=== PATIENT | male | born 1950 | race Caucasian/White ===

== ENCOUNTER 2017-02-12 15:20 | Inpatient (IN) | payer OTHER, MEDICARE ==
[2017-02-12] MEDS ORDERED: Sodium Chloride 0.9% 10 ML Syringe FLUSH PRN (15:38)
[2017-02-12] MEDS ORDERED: cefTRIAXone 2 GM in Sodium Chloride 0.9% 100 ML IV ONE (16:01)
[2017-02-12] MEDS: Lidocaine 1% 10 ML MDV INJECT ONE ×2 (16:18→18:12)
--- NOTE | 2017-02-12 17:01 | EDM.PDOC ---
ED HPI GENERAL MEDICAL PROBLEM - General Chief Complaint: Lower Extremity Injury/Pain Stated Complaint: R KNEEE PAIN POST FALL Time Seen by Provider: 02/12/17 15:20 Source of Information: Reports: Patient History Limitations: Reports: No Limitations - History of Present Illness INITIAL COMMENTS - FREE TEXT/NARRATIVE: 66-year-old male presents from the [facility] for evaluation treatment for a right knee infection. Patient reports that he fell on Thanksgiving. He struck his right knee on some linoleum that was overlying concrete. Patient reports over the last 2 days he is now appreciated significant swelling, redness and increased warmth to the knee. He presented to the [facility] today where he is sent over to us for further management care, concern for a septic joint. Reports on Saturday he did experience some fevers and chills. He denies any nausea or vomiting. He has been walking on the leg. He reports tightness to the knee. 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 Right Knee Pain Score (Numeric/FACES): 2 - Related Data Allergies Allergy/AdvReac Type Severity Reaction Status Date / Time No Known Allergies Allergy Verified 02/12/17 15:33 Home Meds: Home Meds Ascorbic Acid 500 mg PO DAILY 02/12/17 [History] Multivitamin with Minerals [One Daily Plus Minerals] 1 tab PO DAILY 02/12/17 [ History] Phenytoin Sodium Extended [Dilantin] 200 mg PO BID 02/12/17 [History] atorvaSTATin [Lipitor] 10 mg PO BEDTIME 02/12/17 [History] Past Medical History Cardiovascular History: Reports: High Cholesterol Neurological History: Reports: Seizure Psychiatric History: Reports: Depression - Past Surgical History GI Surgical History: Reports: Colonoscopy Social & Family History - Tobacco Use Smoking Status *Q: Former Smoker Used Tobacco, but Quit: Yes Month Tobacco Last Used: 2011 - Caffeine Use Caffeine Use: Reports: Energy Drinks - Recreational Drug Use Recreational Drug Use: No Review of Systems - Review of Systems Review Of Systems: See Below Constitutional: Reports: Chills (saturday), Fever (saturday), Other (rigors- saturday) GI/Abdominal: Denies: Nausea, Vomiting Musculoskeletal: Reports: Joint Pain (right knee), Joint Swelling (right knee) Skin: Reports: Erythema (right knee). Denies: Wound Neurological: Denies: Numbness, Tingling ED EXAM, GENERAL - Physical Exam Exam: See Below Exam Limited By: No Limitations General Appearance: Alert, WD/WN, No Apparent Distress Ears: Normal External Exam Respiratory/Chest: No Respiratory Distress, Lungs Clear, Normal Breath Sounds Cardiovascular: Normal Peripheral Pulses, No Murmur, Other (irregular regular; frequent PVCs appreciated) Peripheral Pulses: 3+: Posterior Tibial (L), Posterior Tibial (R), Dorsalis Pedis (L), Dorsalis Pedis (R) Extremities: Joint Swelling, Limited Range of Motion (able to flex to 90 degrees then reports tightness), Other (Erythema and increased warmth from the mid lower leg up to the distal femur. Swelling over the right knee. Quarter- sized hematoma over the patella. Patient reports that the hematoma is chronic. States since the fall has been more tender than normal.) Neurological: Alert, Oriented, Normal Cognition Psychiatric: Normal Affect, Normal Mood Skin Exam: Warm, Dry, Normal Color, Erythema, Increased Warmth Course - Vital Signs Last Recorded V/S: Last Vital Signs Temp 36.5 C 02/12/17 15:28 Pulse 91 02/12/17 15:28 Resp 16 02/12/17 15:28 BP 131/62 02/12/17 15:28 Pulse Ox 98 02/12/17 15:28 - Orders/Labs/Meds Orders: Active Orders 24 hr Category Date Time Status EKG 12 Lead [EKG Documentation Completion] [RC] STAT Care 02/12/17 15:38 Active Peripheral IV Care [RC] . DIRECTED Care 02/12/17 15:38 Active Knee Min 4V Rt [CR] Stat Exams 02/12/17 15:39 Taken CULTURE BLOOD [BC] Stat Lab 02/12/17 15:55 Received CULTURE BLOOD [BC] Stat Lab 02/12/17 16:00 Received NS + KCl 20mEq/L [Normal Saline with 20 mEq KCl] 1,000 Med 02/12/17 18:45 Active ml IV ASDIRECTED Sodium Chloride 0.9% [Saline Flush] Med 02/12/17 15:38 Active 10 ml FLUSH ASDIRECTED PRN Blood Culture x2 Reflex Set [OM.PC] Stat Oth 02/12/17 15:40 Ordered Peripheral IV Insertion Adult [OM.PC] Routine Oth 02/12/17 15:38 Ordered Medication Orders Potassium Chloride/Sodium Chloride (Normal Saline With 20 Meq Kcl) 1,000 mls @ 125 mls/hr IV ASDIRECTED KEV Last Admin: 02/12/17 19:22 Dose: 125 mls/hr Sodium Chloride (Saline Flush) 10 ml FLUSH ASDIRECTED PRN PRN Reason: Keep Vein Open Last Admin: 02/12/17 15:43 Dose: 10 ml Labs: Laboratory Tests 02/12/17 02/12/17 02/12/17 Range/Units 15:32 15:32 15:55 WBC 16.83 H (4.23-9.07) K/mm3 RBC 4.11 L (4.63-6.08) M/mm3 Hgb 13.2 L (13.7-17.5) gm/L Hct 39.0 L (40.1-51.0) % MCV 94.9 H (79.0-92.2) fl MCH 32.1 (25.7-32.2) pg MCHC 33.8 (32.2-35.5) g/dl RDW Std Deviation 46.8 H (35.1-43.9) fL Plt Count 214 (163-337) K/mm3 MPV 10.7 (9.4-12.3) fl Neutrophils % (Manual) 88 H (40-60) % Band Neutrophils % 0 (0-10) % Lymphocytes % (Manual) 4 L (20-40) % Atypical Lymphs % 0 % Monocytes % (Manual) 7 (2-10) % Eosinophils % (Manual) 1 (0.8-7.0) % Basophils % (Manual) 0 L (0.2-1.2) Platelet Estimate Adequate Plt Morphology Comment Normal RBC Morph Comment Normal Sodium 141 (136-145) mEq/L Potassium 3.0 L (3.5-5.1) mEq/L Chloride 103 (98-107) mEq/L Carbon Dioxide 28 (21-32) mEq/L Anion Gap 13.0 (5-15) BUN 23 H (7-18) mg/dL Creatinine 1.5 H (0.7-1.3) mg/dL Est Cr Clr Drug Dosing 49.34 mL/min Estimated GFR (MDRD) 47 (>60) mL/min BUN/Creatinine Ratio 15.3 (14-18) Glucose 165 H (80-115) mg/dL Lactic Acid 1.5 (0.4-2.0) mmol/L Calcium 8.7 (8.5-10.1) mg/dL Total Bilirubin 0.6 (0.2-1.0) mg/dL AST 23 (15-37) U/L ALT 27 (16-63) U/L Alkaline Phosphatase 99 (46-116) U/L C-Reactive Protein 41.7 H* (<1.0) mg/dL Total Protein 7.6 (6.4-8.2) g/dl Albumin 3.0 L (3.4-5.0) g/dl Globulin 4.6 gm/dL Albumin/Globulin Ratio 0.7 L (1-2) Meds: Medications Generic Name Dose Route Start Last Admin Trade Name Freq PRN Reason Stop Dose Admin Potassium Chloride/Sodium Chloride 1,000 mls @ 125 mls/hr 02/12/17 18:45 19:22 Normal Saline With 20 Meq Kcl IV 125 mls/hr ASDIRECTED KEV Administration Sodium Chloride 10 ml 02/12/17 15:38 02/12/17 15:43 Saline Flush FLUSH 10 ml ASDIRECTED PRN Administration Keep Vein Open Discontinued Medications Generic Name Dose Route Start Last Admin Trade Name Freq PRN Reason Stop Dose Admin Doxycycline Hyclate Confirm 02/12/17 17:54 02/12/17 18:12 Vibramycin Administered 02/12/17 17:55 Not Given Dose 100 mg .ROUTE .STK-MED ONE Hydromorphone HCl 0.5 mg 02/12/17 17:29 02/12/17 17:40 Dilaudid IVPUSH 02/12/17 17:30 0.5 mg ONETIME ONE Administration Ceftriaxone Sodium 2 gm/ 100 mls @ 200 mls/hr 02/12/17 16:01 02/12/17 16:20 Sodium Chloride IV 02/12/17 16:30 200 mls/hr ONETIME ONE Administration Vancomycin HCl 1.5 gm/ Sodium 250 mls @ 250 mls/hr 02/12/17 16:04 02/12/17 18 :09 Chloride IV 02/12/17 17:03 Not Given ONETIME ONE Doxycycline Hyclate 100 mg/ 100 mls @ 100 mls/hr 02/12/17 17:23 02/12/17 18: 12 Sodium Chloride IV 02/12/17 18:22 Not Given ONETIME ONE Doxycycline Hyclate 100 mg/ 100 mls @ 100 mls/hr 02/12/17 17:56 02/12/17 18: 10 Sodium Chloride IV 02/12/17 18:55 100 mls/hr ONETIME ONE Administration Lidocaine HCl 10 ml 02/12/17 16:11 02/12/17 18:12 Xylocaine 1% INJECT 02/12/17 16:12 Not Given ONETIME ONE - Radiology Interpretation Free Text/Narrative:: 4 view of the right knee shows no acute fracture or dislocations. Reviewed by myself and Dr. Cortes - Re-Assessments/Exams Free Text/Narrative Re-Assessment/Exam: 02/12/17 19:58 Initially, I ordered Rocephin and vancomycin for antibiotic coverage. I had Dr. Cortes come and see the patient as we were planning on tapping the infected joint. Patient then began moving the leg more freely and he reported that he has been walking on this leg. Suspected diagnosis of cellulitis overlying the knee and not a septic joint. Spoke with Dr. Farias, regarding this patient. He also felt that the patient is bearing weight and we can passively put this patient to range of motion, a septic joint is very unlikely. I was able to flex the knee to about 90 before the patient reported tightness in the knee. I Do feel that patient would benefit from inpatient stay. He agrees to this. plan to be to admit to MedSurg. I discussed the case with Dr. Galvez, hospice on- call. She agrees to the admission. Will send to med surg, observation, for cellulitis and hypokalemia. Departure - Departure Time of Disposition: 19:31 Disposition: Refer to Observation Condition: Fair Clinical Impression: Cellulitis of knee, right, Hypokalemia - Discharge Information - My Orders Last 24 Hours: My Active Orders 02/12/17 15:38 EKG 12 Lead [EKG Documentation Completion] [RC] STAT Peripheral IV Care [RC] . DIRECTED Sodium Chloride 0.9% [Saline Flush] 10 ml FLUSH ASDIRECTED PRN Peripheral IV Insertion Adult [OM.PC] Routine 02/12/17 15:39 Knee Min 4V Rt [CR] Stat 02/12/17 15:40 Blood Culture x2 Reflex Set [OM.PC] Stat 02/12/17 15:55 CULTURE BLOOD [BC] Stat 02/12/17 16:00 CULTURE BLOOD [BC] Stat 02/12/17 18:45 NS + KCl 20mEq/L [Normal Saline with 20 mEq KCl] 1,000 ml IV ASDIRECTED - Assessment/Plan Last 24 Hours: My Active Orders 02/12/17 15:38 EKG 12 Lead [EKG Documentation Completion] [RC] STAT Peripheral IV Care [RC] . DIRECTED Sodium Chloride 0.9% [Saline Flush] 10 ml FLUSH ASDIRECTED PRN Peripheral IV Insertion Adult [OM.PC] Routine 02/12/17 15:39 Knee Min 4V Rt [CR] Stat 02/12/17 15:40 Blood Culture x2 Reflex Set [OM.PC] Stat 02/12/17 15:55 CULTURE BLOOD [BC] Stat 02/12/17 16:00 CULTURE BLOOD [BC] Stat 02/12/17 18:45 NS + KCl 20mEq/L [Normal Saline with 20 mEq KCl] 1,000 ml IV ASDIRECTED
[2017-02-12] MEDS ORDERED: Doxycycline 100 MG in Sodium Chloride 0.9% 100 ML IV ONE ×2 (17:23→17:56)
[2017-02-12] MEDS ORDERED: HYDROmorphone 0.5 MG/0.5 ML Syringe IVPUSH ONE (17:29)
[2017-02-12] MEDS ORDERED: Doxycycline 100 MG Vial ONE (17:54)
[2017-02-12] MEDS ORDERED: NS + KCl 20mEq/L 1,000 ML IV SCH (18:45)
--- NOTE | 2017-02-12 19:08 | PCM.HP ---
H&P History of Present Illness - General Date of Service: 02/12/17 Source of Information: Patient, Provider, RN, RN Notes Reviewed History Limitations: Reports: No Limitations - History of Present Illness Initial Comments - Free Text/Narative: Cortez Nolen is a 66 yo male who presented to our ED today after being seen at the [facility] for a possible right knee infection. Patient reports he fell on Thanksgiving onto linoleum was concrete underneath. Since then he has noticed increasing swelling, redness, and warmth to the knee. He reports on Saturday he did have some fever and chills, however he denies any nausea or vomiting. He is walking on the leg. He reports tightness to the knee. He has been taking NSAIDs and acetaminophen to try to manage this at home. In the ED he was afebrile with a temp of 36.5C. Pulse was 91. Respirations 16. Blood pressure 131/62. Pulse ox 90%. Labs are obtained: FVC is significantly elevated at 16.3. Hemoglobin is low at 13.2. Hematocrit low at 39.0. He is macrocytic. Platelets are normal at 214,000. Neutrophils are elevated at 88%. There is no bandemia. Sodium was good at 141. Potassium low at 3.0. This is being supplemented in the ED. Chloride is 103. Carbon dioxide 28. Anion gap 13.0. BUN is elevated at 23. Creatinine is high at 1.5. EGFR is 47. Glucose is 165. Lactic acid 1.5. Calcium 8.7. Liver enzymes looked good with AST at 23 ALT at 27 and alkaline phosphatase at 99. His CRP is very elevated at 41.7. Albumin was low at 3.0. He was given normal saline at 125 mils an hour. Doxycycline and ceftriaxone were given via IV. He is given Dilaudid 0.5 mg for pain. It is reported there were going to try to tap the knee, however patient was moving it and walking, suggesting more celulitis over septic arthritis. Dr. Farias, orthopedic surgeon, was contacted by ED provider and given current signs and symptoms he does not believe the joint has septic arthritis. Blood cultures were ordered. A 4 view x-ray of the knee was obtained and is pending formal radiologist review. Twelve-lead EKG shows sinus tachycardia with PVCs. There is borderline short MD interval and borderline left axis deviation. Borderline T-wave abnormalities are also noticed with T-wave inversion in III and aVF. T-wave flattening is noted in II , V1, V3, V4, V5, V6. He reports a history of HLD, seizure "many years ago", depression, impaired short-term memory and a brain tumor which was surgically resected. He is somewhat of a poor historian. Reports being a former smoker. He denies alcohol or drug use. He subsequently admitted to the medical floor as observation status. His CODE STATUS is full code. [facility] P[facility]. Right Knee Pain Score (Numeric/FACES): 2 - Related Data Allergies/Adverse Reactions: Allergies Allergy/AdvReac Type Severity Reaction Status Date / Time No Known Allergies Allergy Verified 02/12/17 15:33 Home Medications: Home Meds Ascorbic Acid 500 mg PO DAILY 02/12/17 [History] Multivitamin with Minerals [One Daily Plus Minerals] 1 tab PO DAILY 02/12/17 [ History] Phenytoin Sodium Extended [Dilantin] 200 mg PO BID 02/12/17 [History] atorvaSTATin [Lipitor] 10 mg PO BEDTIME 02/12/17 [History] Past Medical History Cardiovascular History: Reports: High Cholesterol Neurological History: Reports: Seizure Psychiatric History: Reports: Depression - Past Surgical History GI Surgical History: Reports: Colonoscopy Social & Family History - Tobacco Use Smoking Status *Q: Former Smoker Used Tobacco, but Quit: Yes Month Tobacco Last Used: 2011 - Caffeine Use Caffeine Use: Reports: Energy Drinks - Recreational Drug Use Recreational Drug Use: No H&P Review of Systems - Review of Systems: Review Of Systems: See Below General: Reports: No Symptoms, Fever (prior ), Chills (prior ), Night Sweats ( prior ). Denies: Malaise, Weakness, Fatigue, Decreased Appetite HEENT: Reports: Sinus Congestion. Denies: Ear Pain, Eye Pain, Headaches, Rhinitis, Post Nasal Drip, Sore Throat, Vertigo, Visual Changes Pulmonary: Reports: No Symptoms. Denies: Shortness of Breath, Wheezing, Pleuritic Chest Pain, Cough, Sputum Cardiovascular: Reports: No Symptoms. Denies: Chest Pain, Palpitations, Dyspnea on Exertion, Edema, Lightheadedness, Claudication Gastrointestinal: Reports: No Symptoms. Denies: Abdominal Pain, Anorexia, Constipation, Diarrhea, Decreased Appetite, Nausea, Vomiting Genitourinary: Reports: No Symptoms. Denies: Dysuria, Frequency, Burning, Pain Musculoskeletal: Reports: Joint Pain (right knee ), Joint Swelling (right knee ) . Denies: Neck Pain, Shoulder Pain, Arm Pain, Back Pain, Hand Pain, Leg Pain, Foot Pain, Muscle Pain, Muscle Stiffness Skin: Reports: Erythema (right knee ). Denies: Bruising, Pruritis, Wound, Urticaria Psychiatric: Reports: No Symptoms. Denies: Confusion, Depression, Mood Lability , Anxiety Neurological: Reports: Pre-Existing Deficit (Reports balance issues from prior brain tumor), Seizure (History of, although no seizures for many years), Difficulty Walking, Gait Disturbance. Denies: Confusion, Dizziness, Headache, Numbness, Tingling, Tremors, Trouble Speaking, Change in Speech Hematologic/Lymphatic: Reports: No Symptoms Immunologic: Reports: No Symptoms Exam - Exam Exam: See Below - Vital Signs Vital Signs: Last Vital Signs Temp 97.7 F 02/12/17 15:28 Pulse 91 02/12/17 15:28 Resp 16 02/12/17 15:28 BP 131/62 02/12/17 15:28 Pulse Ox 98 02/12/17 15:28 Weight: 198 lb 8 oz - Exam Quality Assessment: DVT Prophylaxis General: Alert, Oriented, Cooperative. No: Mild Distress HEENT: Conjunctiva Clear, EACs Clear, EOMI, Hearing Intact, Mucosa Moist & [place] , Nares Patent, Normal Nasal Septum, Posterior Pharynx Clear, PERRLA. No: TMs Clear Neck: Supple, Trachea Midline. No: JVD, Thyromegaly Lungs: Clear to Auscultation, Normal Respiratory Effort Cardiovascular: Regular Rate, Irregular Rhythm (PVC's noted ) GI/Abdominal Exam: Normal Bowel Sounds, Soft, Non-Tender, No Organomegaly, No Distention, No Abnormal Bruit, No Mass, Pelvis Stable (Male) Exam: Deferred Rectal (Males) Exam: Deferred Back Exam: Normal Inspection, Full Range of Motion Extremities: No Pedal Edema, Normal Capillary Refill, Joint Swelling (right knee ), Leg Pain (right knee ), Limited Range of Motion (Able to flex to 90 degrees and then reports tighness ), Increased Warmth (right knee ), Redness ( right knee ), Other (Quarter size hematoma over right patella - pt. reports this is chronic ) Peripheral Pulses: 3+: Radial (L), Radial (R), Posterior Tibial (L), Posterior Tibial (R), Dorsalis Pedis (L), Dorsalis Pedis (R) Skin: Warm, Dry, Intact Neurological: Cranial Nerves Intact (Grossly) Neuro Extensive - Mental Status: Alert, Oriented x3, Normal Mood/Affect, Normal Cognition Neuro Extensive - Motor, Sensory, Reflexes: CN II-XII Intact (Grossly) Psychiatric: Alert, Normal Affect, Normal Mood - Patient Data Lab Results Last 24 hrs: Laboratory Results - last 24 hr 02/12/17 02/12/17 02/12/17 Range/Units 15:32 15:32 15:55 WBC 16.83 H (4.23-9.07) K/mm3 RBC 4.11 L (4.63-6.08) M/mm3 Hgb 13.2 L (13.7-17.5) gm/L Hct 39.0 L (40.1-51.0) % MCV 94.9 H (79.0-92.2) fl MCH 32.1 (25.7-32.2) pg MCHC 33.8 (32.2-35.5) g/dl RDW Std Deviation 46.8 H (35.1-43.9) fL Plt Count 214 (163-337) K/mm3 MPV 10.7 (9.4-12.3) fl Neutrophils % (Manual) 88 H (40-60) % Band Neutrophils % 0 (0-10) % Lymphocytes % (Manual) 4 L (20-40) % Atypical Lymphs % 0 % Monocytes % (Manual) 7 (2-10) % Eosinophils % (Manual) 1 (0.8-7.0) % Basophils % (Manual) 0 L (0.2-1.2) Platelet Estimate Adequate Plt Morphology Comment Normal RBC Morph Comment Normal Sodium 141 (136-145) mEq/L Potassium 3.0 L (3.5-5.1) mEq/L Chloride 103 (98-107) mEq/L Carbon Dioxide 28 (21-32) mEq/L Anion Gap 13.0 (5-15) BUN 23 H (7-18) mg/dL Creatinine 1.5 H (0.7-1.3) mg/dL Est Cr Clr Drug Dosing 49.34 mL/min Estimated GFR (MDRD) 47 (>60) mL/min BUN/Creatinine Ratio 15.3 (14-18) Glucose 165 H (80-115) mg/dL Lactic Acid 1.5 (0.4-2.0) mmol/L Calcium 8.7 (8.5-10.1) mg/dL Total Bilirubin 0.6 (0.2-1.0) mg/dL AST 23 (15-37) U/L ALT 27 (16-63) U/L Alkaline Phosphatase 99 (46-116) U/L C-Reactive Protein 41.7 H* (<1.0) mg/dL Total Protein 7.6 (6.4-8.2) g/dl Albumin 3.0 L (3.4-5.0) g/dl Globulin 4.6 gm/dL Albumin/Globulin Ratio 0.7 L (1-2) Result Diagrams: 02/12/17 15:32 02/12/17 15:32 *Q Meaningful Use (ADM) - VTE *Q VTE Criteria *Q: - Stroke *Q Stroke Criteria *Q: - AMI *Q AMI Criteria *Q: - Problem List (1) Cellulitis of knee, right SNOMED Code(s): 26966596 ICD Code: L03.115 - CELLULITIS OF RIGHT LOWER LIMB Status: Acute Priority : High Current Visit: Yes (2) Hypokalemia SNOMED Code(s): 62219307 ICD Code: E87.6 - HYPOKALEMIA Status: Acute Priority: High Current Visit: Yes (3) Anemia SNOMED Code(s): 186301038 ICD Code: D64.9 - ANEMIA, UNSPECIFIED Status: Acute Priority: Medium Current Visit: Yes Qualifiers: Anemia type: unspecified type Qualified Code(s): D64.9 - Anemia, unspecified (4) Renal insufficiency SNOMED Code(s): 073664578 ICD Code: N28.9 - DISORDER OF KIDNEY AND URETER, UNSPECIFIED Status: Acute Priority: Medium Current Visit: Yes (5) HLD (hyperlipidemia) SNOMED Code(s): 74162453 ICD Code: E78.5 - HYPERLIPIDEMIA, UNSPECIFIED Status: Chronic Priority: Low Current Visit: No Qualifiers: Hyperlipidemia type: unspecified Qualified Code(s): E78.5 - Hyperlipidemia , unspecified (6) History of seizure SNOMED Code(s): 583892249 ICD Code: Z87.898 - PERSONAL HISTORY OF OTHER SPECIFIED CONDITIONS Status: Chronic Priority: Low Current Visit: No (7) History of depression SNOMED Code(s): 644812211 ICD Code: Z86.59 - PERSONAL HISTORY OF OTHER MENTAL AND BEHAVIORAL DISORDERS Status: Chronic Priority: Low Current Visit: No Problem List Initiated/Reviewed/Updated: Yes Orders Last 24hrs: Active Orders 24 hr Category Date Time Status EKG 12 Lead [EKG Documentation Completion] [RC] STAT Care 02/12/17 15:38 Active Peripheral IV Care [RC] . DIRECTED Care 02/12/17 15:38 Active Knee Min 4V Rt [CR] Stat Exams 02/12/17 15:39 Taken CULTURE BLOOD [BC] Stat Lab 02/12/17 15:55 Received CULTURE BLOOD [BC] Stat Lab 02/12/17 16:00 Received NS + KCl 20mEq/L [Normal Saline with 20 mEq KCl] 1,000 Med 02/12/17 18:45 Active ml IV ASDIRECTED Sodium Chloride 0.9% [Saline Flush] Med 02/12/17 15:38 Active 10 ml FLUSH ASDIRECTED PRN Blood Culture x2 Reflex Set [OM.PC] Stat Oth 02/12/17 15:40 Ordered Peripheral IV Insertion Adult [OM.PC] Routine Oth 02/12/17 15:38 Ordered Medication Orders Potassium Chloride/Sodium Chloride (Normal Saline With 20 Meq Kcl) 1,000 mls @ 125 mls/hr IV ASDIRECTED KEV Sodium Chloride (Saline Flush) 10 ml FLUSH ASDIRECTED PRN PRN Reason: Keep Vein Open Last Admin: 02/12/17 15:43 Dose: 10 ml Assessment/Plan Comment:: I/P Acute: Cellulitis of right knee -Erythema, redness, and pain to right knee, although no drainage. -Reports falling on and hitting knee on linoleum with concrete underneath -Reports fever, chills, and night sweats since Saturday -Took acetaminophen and NSAIDs for treatment prior to arrival. -Was able to walk on extremity, 90 degree flexion with "tightness", full extension -Afebrile in ED with stable vital signs -WBC 16.83 -CRP 41.7 -Lactic acid 1.5 -Blood cultures obtained -Dr. Dinora, orthopedic surgeon, contacted by ED provider and doubts septic arthritis -Knee x-ray essentially unremarkable pending formal radiologist review. -Doxycycline and Rocephin given in ED -Knee was not tapped in ED -Will switch to Vancomycin and Zosyn -PRN pain control medications as ordered Hypokalemia -Potassium 3.0 in ED -Supplementation ordered by ED provider -40meq PO supplementation given on floor -Will monitor and supplement as necessary Anemia -Hgb 13.2 -Hct 39.0 -Will order iron studies, B12, and Folic acid -Follow-up with PCP Renal insufficiency -Unknown what baseline is -BUN 23 -Creatinine 1.5 -eGFR 47 -IV fluids as indicated -Monitor Chronic: Seizure disorder - Home Dilantin HLD Depression Hx/o brain neoplasm Short-term memory impairment Plan: Admit to medical floor observation status CM/SW for discharge planning PT/OT GI prophylaxis: Pepcid DVT prophylaxis: KARLI Hose and Lovenox Other orders as indicated above Routine AM labs Home medications as ordered Code status: Full code. His PCP is Dr. Ibrahim with the [facility].
[2017-02-12] MEDS ORDERED: Docusate Sodium 100 MG Cap PO PRN (20:08)
[2017-02-12] MEDS ORDERED: Polyethylene Glycol 3350 Powder 17 GM Packet PO PRN (20:08)
[2017-02-12] MEDS ORDERED: Ondansetron 4 MG/2 ML SDV IV PRN (20:08)
[2017-02-12] MEDS ORDERED: Ondansetron 4 MG Tab.DIS PO PRN (20:08)
[2017-02-12] MEDS ORDERED: Bisacodyl 5 MG Tab PO PRN (20:08)
[2017-02-12] MEDS ORDERED: Potassium Chloride 20 MEQ Tab.ER PO ONE (20:19)
[2017-02-12] MEDS ORDERED: SODIUM CHLORIDE 0.9% IV SCH ×3 (21:00)
[2017-02-12] MEDS ORDERED: VANCOMYCIN IV SCH ×3 (21:00)
[2017-02-12] MEDS: Famotidine 20 MG Tab PO SCH (22:30)
[2017-02-12] MEDS: Saccharomyces Boulardii (Probiotic) 250 MG Cap PO SCH (22:30)
[2017-02-12] MEDS: Ibuprofen 600 MG Tab PO PRN (23:03)
[2017-02-13] MEDS: Acetaminophen 325 MG Tab PO PRN ×2 (04:20→18:24)
[2017-02-13] MEDS: Sodium Chloride 0.9% 1,000 ML IV SCH ×2 (04:23→20:23)
[2017-02-13] MEDS ORDERED: Piperacillin/Tazobactam 4.5 GM in Sodium Chloride 0.9% 100 ML IV ONE (06:00)
[2017-02-13] MEDS: Saccharomyces Boulardii (Probiotic) 250 MG Cap PO SCH ×2 (08:39→21:30)
[2017-02-13] MEDS: Phenytoin 100 MG Cap.ER PO SCH ×2 (08:39→21:30)
[2017-02-13] MEDS: Enoxaparin 40 MG/0.4 ML Syringe SUBCUT SCH (08:40)
[2017-02-13] MEDS: Famotidine 20 MG Tab PO SCH ×2 (08:40→21:30)
--- NOTE | 2017-02-13 09:50 | CR ---
Right knee: Four views of the right knee were obtained. Comparison: No previous study. Soft tissue swelling seen anteriorly. Slight spurring noted off the patella at the attachment of the quadriceps and patellar tendons. Moderately severe joint space narrowing seen within the medial compartment. Lateral joint space is preserved. No acute fracture or other bony abnormality is appreciated. Impression: 1. Degenerative change. 2. Anterior soft tissue swelling. 3. No acute bony abnormality is identified. Diagnostic code #3
[2017-02-13] MEDS ORDERED: FLU Vacc TS 2017-18 (65yr UP)/PF 180 MCG/0.5 ML Syringe IM ONE (10:00)
--- NOTE | 2017-02-13 12:48 | PCM.PN ---
- General Info Date of Service: 02/13/17 Admission Dx/Problem (Free Text): Cortez is a 66yo male admitted to observation status last evening with cellulitis of rt knee. Overnight nursing reports he was tachycardic and febrile. This morning lab called with reports of 2/4 BC bottles positive for G+cocci. Patient is with low grade temps of 100-99. He reports was sweating and "soaked my bed" last night. Appetite is low. He is voiding and moved bowels one day ago. Denies n/v/d. Has a dull headache currently. His knee is with pain of "1.5 "/10 currently. It is more painful when he moves the knee, he is able to bend the knee to approximately 45 degrees and then knee feels "tight". He was up and ambulatory this morning with PT. Functional Status: Reports: Pain Controlled, Tolerating Diet, Ambulating, Urinating. Denies: New Symptoms - Review of Systems General: Reports: Fever (low grade), Fatigue HEENT: Reports: No Symptoms Pulmonary: Reports: No Symptoms Cardiovascular: Reports: No Symptoms Gastrointestinal: Reports: No Symptoms. Denies: Nausea Genitourinary: Reports: No Symptoms Musculoskeletal: Reports: Leg Pain (rt knee) Neurological: Reports: No Symptoms - Patient Data Vitals - Most Recent: Last Vital Signs Temp 98.8 F 02/13/17 07:55 Pulse 95 02/13/17 07:56 Resp 20 02/13/17 07:55 BP 107/61 02/13/17 07:55 Pulse Ox 95 02/13/17 07:56 Weight - Most Recent: 206 lb 12.8 oz Med Orders - Current: Current Medications Acetaminophen (Tylenol) 650 mg PO Q4H PRN PRN Reason: Pain/Fever Last Admin: 02/13/17 04:20 Dose: 650 mg Hydrocodone Bitart/Acetaminophen ([place] 325-5 Mg) 1 tab PO Q4H PRN PRN Reason: Pain (moderate 4-6) Bisacodyl (Dulcolax) 5 mg PO DAILY PRN PRN Reason: Constipation Docusate Sodium (Colace) 100 mg PO BID PRN PRN Reason: Constipation Enoxaparin Sodium (Lovenox) 40 mg SUBCUT DAILY [facility] Last Admin: 02/13/17 08:40 Dose: 40 mg Famotidine (Pepcid) 20 mg PO BID [facility] Last Admin: 02/13/17 08:40 Dose: 20 mg Hydromorphone HCl (Dilaudid) 0.25 mg IVPUSH Q2H PRN PRN Reason: Pain (severe 7-10) Piperacillin Sod/Tazobactam (Sod 4.5 gm/ Sodium Chloride) 100 mls @ 25 mls/hr IV Q8H [facility] Sodium Chloride (Normal Saline) 1,000 mls @ 100 mls/hr IV ASDIRECTED [facility] Stop: 02/14/17 06:59 Last Admin: 02/13/17 04:23 Dose: 100 mls/hr Vancomycin HCl 1.75 gm/ Sodium (Chloride) 500 mls @ 333.333 mls/hr IV Q24H [facility] Ibuprofen (Motrin) 600 mg PO Q6H PRN PRN Reason: Pain (moderate 4-6) Last Admin: 02/12/17 23:03 Dose: 600 mg Ondansetron HCl (Zofran Odt) 4 mg PO Q6H PRN PRN Reason: nausea, able to take PO Ondansetron HCl (Zofran) 4 mg IV Q6H PRN PRN Reason: Nausea/Vomiting Phenytoin Sodium (Phenytoin) 200 mg PO BID [facility] Last Admin: 02/13/17 08:39 Dose: 200 mg Polyethylene Glycol (Miralax) 17 gm PO DAILY PRN PRN Reason: Constipation Saccharomyces Boulardii (Florastor) 250 mg PO BID [facility] Simvastatin (Zocor) 10 mg PO BEDTIME [facility] Sodium Chloride (Saline Flush) 10 ml FLUSH ASDIRECTED PRN PRN Reason: Keep Vein Open Last Admin: 02/12/17 15:43 Dose: 10 ml Vancomycin HCl (Pharmacy To Dose - Vancomycin) 1 dose .XX ASDIRECTED [facility] Discontinued Medications Doxycycline Hyclate (Vibramycin) Confirm Administered Dose 100 mg .ROUTE .STK- MED ONE Stop: 02/12/17 17:55 Last Admin: 02/12/17 18:12 Dose: Not Given Hydromorphone HCl (Dilaudid) 0.5 mg IVPUSH ONETIME ONE Stop: 02/12/17 17:30 Last Admin: 02/12/17 17:40 Dose: 0.5 mg Ceftriaxone Sodium 2 gm/ (Sodium Chloride) 100 mls @ 200 mls/hr IV ONETIME ONE Stop: 02/12/17 16:30 Last Admin: 02/12/17 16:20 Dose: 200 mls/hr Vancomycin HCl 1.5 gm/ Sodium (Chloride) 250 mls @ 250 mls/hr IV ONETIME ONE Stop: 02/12/17 17:03 Last Admin: 02/12/17 18:09 Dose: Not Given Doxycycline Hyclate 100 mg/ (Sodium Chloride) 100 mls @ 100 mls/hr IV ONETIME ONE Stop: 02/12/17 18:22 Last Admin: 02/12/17 18:12 Dose: Not Given Doxycycline Hyclate 100 mg/ (Sodium Chloride) 100 mls @ 100 mls/hr IV ONETIME ONE Stop: 02/12/17 18:55 Last Admin: 02/12/17 18:10 Dose: 100 mls/hr Potassium Chloride/Sodium Chloride (Normal Saline With 20 Meq Kcl) 1,000 mls @ 125 mls/hr IV ASDIRECTED [facility] Last Admin: 02/12/17 19:22 Dose: 125 mls/hr Piperacillin Sod/Tazobactam (Sod 4.5 gm/ Sodium Chloride) 100 mls @ 200 mls/hr IV ONETIME ONE Stop: 02/13/17 06:29 Last Admin: 02/13/17 05:25 Dose: 200 mls/hr Vancomycin HCl 1 gm/Vancomycin HCl 250 mg/ Sodium Chloride 250 mls @ 166.667 mls/hr IV Q24H [facility] Last Admin: 02/12/17 22:33 Dose: 166.667 mls/hr Influenza Virus Vaccine (Pharmacy To Dose - Influenza Vaccine) 1 each IM ONETIME ONE Stop: 02/12/17 21:00 Influenza Virus Vaccine (Fluzone High-Dose ) 180 mcg IM .ONCE ONE Stop: 02/13/17 10:01 Lidocaine HCl (Xylocaine 1%) 10 ml INJECT ONETIME ONE Stop: 02/12/17 16:12 Last Admin: 02/12/17 18:12 Dose: Not Given Potassium Chloride (Klor-Con M20) 40 meq PO ONETIME ONE Stop: 02/12/17 20:20 Last Admin: 02/12/17 22:29 Dose: 40 meq Saccharomyces Boulardii (Florastor) 500 mg PO BID [facility] Last Admin: 02/13/17 08:39 Dose: 500 mg - Exam Quality Assessment: DVT Prophylaxis General: Alert, Oriented, Cooperative, No Acute Distress HEENT: Pupils Equal, EOMI, Mucous Membr. Moist/Crum Neck: Supple Lungs: Clear to Auscultation, Normal Respiratory Effort Cardiovascular: Regular Rate, Regular Rhythm GI/Abdominal Exam: Normal Bowel Sounds, Soft, Non-Tender (Male) Exam: Deferred Back Exam: Normal Inspection Extremities: Pedal Edema (right tibia is 1+ edema; left leg normal. CMS is intact and = bilaterally. ), Joint Swelling (right knee is with erythema and warmth/hot to touch. There is a 3cm round raised calloused area (patient and son state is chronic) but much larger than usual (usually around 1 cm) that is very tender to touch, nonfluctuant, there is a central pinpoint opening (likely site of innoculation). Surrounding tissue is erythematous and taut. There is moderate effusion present. Posterior knee is nonternder. ) Peripheral Pulses: 2+: Dorsalis Pedis (L), Dorsalis Pedis (R) Skin: Warm, Dry, Other (see above for rt knee exam/findings) Psy/Mental Status: Alert, Normal Affect, Normal Mood - Problem List & Annotations (1) Bacteremia SNOMED Code(s): 7699020 Code(s): R78.81 - BACTEREMIA Status: Acute Priority: High Current Visit : Yes (2) Cellulitis of knee, right SNOMED Code(s): 70542190 Code(s): L03.115 - CELLULITIS OF RIGHT LOWER LIMB Status: Acute Priority : High Current Visit: Yes (3) Anemia SNOMED Code(s): 621209894 Code(s): D64.9 - ANEMIA, UNSPECIFIED Status: Acute Priority: Medium Current Visit: Yes Qualifiers: Anemia type: unspecified type Qualified Code(s): D64.9 - Anemia, unspecified (4) Hypokalemia SNOMED Code(s): 34375970 Code(s): E87.6 - HYPOKALEMIA Status: Acute Priority: High Current Visit : Yes (5) Renal insufficiency SNOMED Code(s): 300846898 Code(s): N28.9 - DISORDER OF KIDNEY AND URETER, UNSPECIFIED Status: Chronic Priority: Medium Current Visit: Yes (6) HLD (hyperlipidemia) SNOMED Code(s): 32576847 Code(s): E78.5 - HYPERLIPIDEMIA, UNSPECIFIED Status: Chronic Priority: Low Current Visit: No Qualifiers: Hyperlipidemia type: unspecified Qualified Code(s): E78.5 - Hyperlipidemia , unspecified (7) History of depression SNOMED Code(s): 939968619 Code(s): Z86.59 - PERSONAL HISTORY OF OTHER MENTAL AND BEHAVIORAL DISORDERS Status: Chronic Priority: Low Current Visit: No (8) History of seizure SNOMED Code(s): 393324175 Code(s): Z87.898 - PERSONAL HISTORY OF OTHER SPECIFIED CONDITIONS Status: Chronic Priority: Low Current Visit: No - Problem List Review Problem List Initiated/Reviewed/Updated: Yes - Plan Plan:: I/P Acute: Bacteremia -2/4 blood cultures positive for gram positive cocci- called from lab this morning -Cont on Vanco and zosyn for now until confirmation of organism and sensitivity. -IVF, NS @ 100/hr -Antipyrectics PRN for fever Cellulitis of right knee -Erythema, redness, and pain to right knee, although no drainage. -Reports falling on and hitting knee on linoleum with concrete underneath -Reports fever, chills, and night sweats since Saturday -Took acetaminophen and NSAIDs for treatment prior to arrival. -Was able to walk on extremity, 90 degree flexion with "tightness", full extension -Afebrile in ED with stable vital signs -WBC 16.83 -CRP 41.7 -Lactic acid 1.5 -Blood cultures obtained -Dr. Farias, orthopedic surgeon, contacted by ED provider and doubts septic arthritis -Formal consult placed for Orthopedics this afternoon -Dr. Farias did see patient this afternoon, planning I&D at bedside later today; questioned need for CT, Dr. Farias states no need at this time. -Knee x-ray essentially unremarkable pending formal radiologist review. -Doxycycline and Rocephin given in ED -Knee was not tapped in ED -Will switch to Vancomycin and Zosyn -PRN pain control medications as ordered Hypokalemia -Potassium 3.0 in ED--3.4 today -Will monitor and supplement as necessary -Normal mag- follow mag levels also Anemia -Hgb 13.2 -Hct 39.0 -Will order iron studies, B12, and Folic acid---Iron studies with iron level low at 14 -Start ferrous sulfate -Occult stool ordered -Follow-up with PCP Renal insufficiency--stable -Unknown what baseline is -BUN 23 -Creatinine 1.5 -eGFR 47 -IV fluids as indicated -Monitor Chronic: Seizure disorder - Home Dilantin dose HLD Depression Hx/o brain neoplasm Short-term memory impairment Plan: Patient now with bacteremia; status change from Observation to Inpatient. CM/SW for discharge planning PT/OT GI prophylaxis: Pepcid DVT prophylaxis: KARLI Hose and Lovenox Other orders as indicated above Routine AM labs Home medications as ordered Code status: Full code. His P[facility] is [facility].
[2017-02-13] MEDS: Acetaminophen/HYDROcodone 325-5 MG Tab PO PRN (13:12)
[2017-02-13] MEDS ORDERED: Ketorolac 30 MG/ML SDV IVPUSH ONE (13:45)
[2017-02-13] MEDS: Piperacillin/Tazobactam 4.5 GM in Sodium Chloride 0.9% 100 ML IV SCH (14:22)
[2017-02-13] MEDS: HYDROmorphone 0.5 MG/0.5 ML Syringe IVPUSH PRN (17:24)
[2017-02-13] MEDS ORDERED: Potassium Chloride 10% 20 MEQ/15 ML Soln 30 ML UD Cup PO ONE (20:20)
[2017-02-13] MEDS ORDERED: Sodium Chloride 0.9% 1,000 ML IV SCH (20:30)
[2017-02-13] MEDS: Vancomycin 1.75 GM in Sodium Chloride 0.9% 500 ML IV SCH (21:30)
[2017-02-13] MEDS: Simvastatin 10 MG Tab PO SCH (21:30)
[2017-02-14] MEDS: Piperacillin/Tazobactam 4.5 GM in Sodium Chloride 0.9% 100 ML IV SCH ×4 (00:13→23:10)
[2017-02-14] MEDS: Acetaminophen 325 MG Tab PO PRN ×2 (03:19→16:08)
[2017-02-14] MEDS: Ferrous Sulfate 325 MG Tab PO SCH (06:23)
[2017-02-14] MEDS ORDERED: Sodium Chloride 0.9% 1,000 ML IV SCH ×3 (08:30→20:30)
[2017-02-14] MEDS: Phenytoin 100 MG Cap.ER PO SCH ×2 (09:53→20:29)
[2017-02-14] MEDS: Ascorbic Acid 500 MG Tab PO SCH (09:53)
[2017-02-14] MEDS: Famotidine 20 MG Tab PO SCH ×2 (09:53→20:29)
[2017-02-14] MEDS: Enoxaparin 40 MG/0.4 ML Syringe SUBCUT SCH (09:54)
[2017-02-14] MEDS: Saccharomyces Boulardii (Probiotic) 250 MG Cap PO SCH ×2 (10:06→20:28)
--- NOTE | 2017-02-14 12:47 | PCM.PN ---
- General Info Date of Service: 02/14/17 Admission Dx/Problem (Free Text): Cortez is a 66yo male admitted to observation status last evening with cellulitis of rt knee. Overnight nursing reports he was tachycardic and febrile. This morning lab called with reports of 2/4 BC bottles positive for G+cocci. Patient is with low grade temps of 100-99. He reports was sweating and "soaked my bed" last night. Appetite is low. He is voiding and moved bowels one day ago. Denies n/v/d. Has a dull headache currently. His knee is with pain of "1.5 "/10 currently. It is more painful when he moves the knee, he is able to bend the knee to approximately 45 degrees and then knee feels "tight". He was up and ambulatory this morning with PT. Functional Status: Reports: Pain Controlled, Tolerating Diet, Ambulating, Urinating - Patient Data Vitals - Most Recent: Last Vital Signs Temp 98.1 F 02/14/17 09:51 Pulse 99 02/14/17 08:22 Resp 22 H 02/14/17 08:22 BP 133/73 02/14/17 08:22 Pulse Ox 95 02/14/17 09:00 Weight - Most Recent: 213 lb I&O - Last 24 Hours: Intake & Output 02/13/17 02/14/17 02/14/17 22:59 06:59 14:59 Intake Total 2481 2174 Output Total 400 200 Balance 2080 1973 Lab Results Last 24 Hours: Laboratory Results - last 24 hr 02/14/17 02/14/17 Range/Units 05:40 05:40 WBC 18.37 H (4.23-9.07) K/mm3 RBC 3.24 L (4.63-6.08) M/mm3 Hgb 10.2 L (13.7-17.5) gm/L Hct 31.0 L (40.1-51.0) % MCV 95.7 H (79.0-92.2) fl MCH 31.5 (25.7-32.2) pg MCHC 32.9 (32.2-35.5) g/dl RDW Std Deviation 49.4 H (35.1-43.9) fL Plt Count 262 (163-337) K/mm3 MPV 10.6 (9.4-12.3) fl Neut % (Auto) 81.4 H (34.0-67.9) % Lymph % (Auto) 6.9 L (21.8-53.1) % Richardson % (Auto) 10.4 (5.3-12.2) % Eos % (Auto) 0.3 L (0.8-7.0) Baso % (Auto) 0.2 (0.1-1.2) % Neut # (Auto) 14.96 H (1.78-5.38) K/mm3 Lymph # (Auto) 1.27 L (1.32-3.57) K/mm3 Richardson # (Auto) 1.91 H (0.30-0.82) K/mm3 Eos # (Auto) 0.05 (0.04-0.54) K/mm3 Baso # (Auto) 0.03 (0.01-0.08) K/mm3 Manual Slide Review Abnormal smear Sodium 139 (136-145) mEq/L Potassium 3.5 (3.5-5.1) mEq/L Chloride 106 (98-107) mEq/L Carbon Dioxide 20 L (21-32) mEq/L Anion Gap 16.5 H (5-15) BUN 30 H (7-18) mg/dL Creatinine 1.9 H (0.7-1.3) mg/dL Est Cr Clr Drug Dosing 38.95 mL/min Estimated GFR (MDRD) 36 (>60) mL/min BUN/Creatinine Ratio 15.8 (14-18) Glucose 164 H (80-115) mg/dL Calcium 7.8 L (8.5-10.1) mg/dL Magnesium 1.8 (1.8-2.4) mg/dl C-Reactive Protein 42.7 H* (<1.0) mg/dL Med Orders - Current: Current Medications Acetaminophen (Tylenol) 650 mg PO Q4H PRN PRN Reason: Pain/Fever Last Admin: 02/14/17 03:19 Dose: 650 mg Hydrocodone Bitart/Acetaminophen ([place] 325-5 Mg) 1 tab PO Q4H PRN PRN Reason: Pain (moderate 4-6) Last Admin: 02/13/17 13:12 Dose: 1 tab Ascorbic Acid (Vitamin C) 500 mg PO DAILY [facility] Last Admin: 02/14/17 09:53 Dose: 500 mg Bisacodyl (Dulcolax) 5 mg PO DAILY PRN PRN Reason: Constipation Docusate Sodium (Colace) 100 mg PO BID PRN PRN Reason: Constipation Enoxaparin Sodium (Lovenox) 40 mg SUBCUT DAILY [facility] Last Admin: 02/14/17 09:54 Dose: 40 mg Famotidine (Pepcid) 20 mg PO BID [facility] Last Admin: 02/14/17 09:53 Dose: 20 mg Ferrous Sulfate (Ferrous Sulfate) 325 mg PO WITHBREAKFAST [facility] Last Admin: 02/14/17 06:23 Dose: 325 mg Hydromorphone HCl (Dilaudid) 0.25 mg IVPUSH Q2H PRN PRN Reason: Pain (severe 7-10) Last Admin: 02/13/17 17:24 Dose: 0.25 mg Piperacillin Sod/Tazobactam (Sod 4.5 gm/ Sodium Chloride) 100 mls @ 25 mls/hr IV Q8H [facility] Last Admin: 02/14/17 06:17 Dose: 25 mls/hr Vancomycin HCl 1.75 gm/ Sodium (Chloride) 500 mls @ 333.333 mls/hr IV Q24H [facility] Last Admin: 02/13/17 21:30 Dose: 333.333 mls/hr Sodium Chloride (Normal Saline) 1,000 mls @ 100 mls/hr IV ASDIRECTED [facility] Sodium Chloride (Normal Saline) 1,000 mls @ 999 mls/hr IV ASDIRECTED [facility] Last Admin: 02/14/17 10:05 Dose: 999 mls/hr Ibuprofen (Motrin) 600 mg PO Q6H PRN PRN Reason: Pain (moderate 4-6) Last Admin: 02/12/17 23:03 Dose: 600 mg Ondansetron HCl (Zofran Odt) 4 mg PO Q6H PRN PRN Reason: nausea, able to take PO Ondansetron HCl (Zofran) 4 mg IV Q6H PRN PRN Reason: Nausea/Vomiting Phenytoin Sodium (Phenytoin) 200 mg PO BID [facility] Last Admin: 02/14/17 09:53 Dose: 200 mg Polyethylene Glycol (Miralax) 17 gm PO DAILY PRN PRN Reason: Constipation Saccharomyces Boulardii (Florastor) 250 mg PO BID [facility] Last Admin: 02/14/17 10:06 Dose: 250 mg Simvastatin (Zocor) 10 mg PO BEDTIME [facility] Last Admin: 02/13/17 21:30 Dose: 10 mg Sodium Chloride (Saline Flush) 10 ml FLUSH ASDIRECTED PRN PRN Reason: Keep Vein Open Last Admin: 02/12/17 15:43 Dose: 10 ml Vancomycin HCl (Pharmacy To Dose - Vancomycin) 1 dose .XX ASDIRECTED [facility] Discontinued Medications Doxycycline Hyclate (Vibramycin) Confirm Administered Dose 100 mg .ROUTE .STK- MED ONE Stop: 02/12/17 17:55 Last Admin: 02/12/17 18:12 Dose: Not Given Hydromorphone HCl (Dilaudid) 0.5 mg IVPUSH ONETIME ONE Stop: 02/12/17 17:30 Last Admin: 02/12/17 17:40 Dose: 0.5 mg Ceftriaxone Sodium 2 gm/ (Sodium Chloride) 100 mls @ 200 mls/hr IV ONETIME ONE Stop: 02/12/17 16:30 Last Admin: 02/12/17 16:20 Dose: 200 mls/hr Vancomycin HCl 1.5 gm/ Sodium (Chloride) 250 mls @ 250 mls/hr IV ONETIME ONE Stop: 02/12/17 17:03 Last Admin: 02/12/17 18:09 Dose: Not Given Doxycycline Hyclate 100 mg/ (Sodium Chloride) 100 mls @ 100 mls/hr IV ONETIME ONE Stop: 02/12/17 18:22 Last Admin: 02/12/17 18:12 Dose: Not Given Doxycycline Hyclate 100 mg/ (Sodium Chloride) 100 mls @ 100 mls/hr IV ONETIME ONE Stop: 02/12/17 18:55 Last Admin: 02/12/17 18:10 Dose: 100 mls/hr Potassium Chloride/Sodium Chloride (Normal Saline With 20 Meq Kcl) 1,000 mls @ 125 mls/hr IV ASDIRECTED [facility] Last Admin: 02/12/17 19:22 Dose: 125 mls/hr Piperacillin Sod/Tazobactam (Sod 4.5 gm/ Sodium Chloride) 100 mls @ 200 mls/hr IV ONETIME ONE Stop: 02/13/17 06:29 Last Admin: 02/13/17 05:25 Dose: 200 mls/hr Vancomycin HCl 1 gm/Vancomycin HCl 250 mg/ Sodium Chloride 250 mls @ 166.667 mls/hr IV Q24H [facility] Last Admin: 02/12/17 22:33 Dose: 166.667 mls/hr Sodium Chloride (Normal Saline) 1,000 mls @ 100 mls/hr IV ASDIRECTED [facility] Stop: 02/14/17 06:59 Last Admin: 02/13/17 20:23 Dose: 100 mls/hr Influenza Virus Vaccine (Pharmacy To Dose - Influenza Vaccine) 1 each IM ONETIME ONE Stop: 02/12/17 21:00 Influenza Virus Vaccine (Fluzone High-Dose 2016-) 180 mcg IM .ONCE ONE Stop: 02/13/17 10:01 Ketorolac Tromethamine (Toradol) 30 mg IVPUSH ONETIME ONE Stop: 02/13/17 13:46 Last Admin: 02/13/17 14:23 Dose: 30 mg Lidocaine HCl (Xylocaine 1%) 10 ml INJECT ONETIME ONE Stop: 02/12/17 16:12 Last Admin: 02/12/17 18:12 Dose: Not Given Potassium Chloride (Klor-Con M20) 40 meq PO ONETIME ONE Stop: 02/12/17 20:20 Last Admin: 02/12/17 22:29 Dose: 40 meq Potassium Chloride (Potassium Chloride) 40 meq PO ONETIME ONE Stop: 02/13/17 20:21 Last Admin: 02/13/17 21:30 Dose: 40 meq Saccharomyces Boulardii (Florastor) 500 mg PO BID [facility] Last Admin: 02/13/17 08:39 Dose: 500 mg - Problem List & Annotations (1) Cellulitis of knee, right SNOMED Code(s): 02329328 Code(s): L03.115 - CELLULITIS OF RIGHT LOWER LIMB Status: Acute Priority : High Current Visit: Yes (2) Hypokalemia SNOMED Code(s): 50969065 Code(s): E87.6 - HYPOKALEMIA Status: Acute Priority: High Current Visit : Yes (3) Anemia SNOMED Code(s): 003426934 Code(s): D64.9 - ANEMIA, UNSPECIFIED Status: Acute Priority: Medium Current Visit: Yes Qualifiers: Anemia type: unspecified type Qualified Code(s): D64.9 - Anemia, unspecified (4) Renal insufficiency SNOMED Code(s): 939097764 Code(s): N28.9 - DISORDER OF KIDNEY AND URETER, UNSPECIFIED Status: Chronic Priority: Medium Current Visit: Yes (5) HLD (hyperlipidemia) SNOMED Code(s): 81153461 Code(s): E78.5 - HYPERLIPIDEMIA, UNSPECIFIED Status: Chronic Priority: Low Current Visit: No Qualifiers: Hyperlipidemia type: unspecified Qualified Code(s): E78.5 - Hyperlipidemia , unspecified (6) History of seizure SNOMED Code(s): 018294547 Code(s): Z87.898 - PERSONAL HISTORY OF OTHER SPECIFIED CONDITIONS Status: Chronic Priority: Low Current Visit: No (7) History of depression SNOMED Code(s): 922815899 Code(s): Z86.59 - PERSONAL HISTORY OF OTHER MENTAL AND BEHAVIORAL DISORDERS Status: Chronic Priority: Low Current Visit: No - My Orders Last 24 Hours: My Active Orders 02/13/17 17:15 CULTURE ANAEROBIC + SMEAR [RM] Routine 02/13/17 20:30 Sodium Chloride 0.9% [Normal Saline] 1,000 ml IV ASDIRECTED 02/14/17 07:00 Ferrous Sulfate 325 mg PO WITHBREAKFAST 02/14/17 08:30 Sodium Chloride 0.9% [Normal Saline] 1,000 ml IV ASDIRECTED 02/14/17 09:00 Ascorbic Acid [Vitamin C] 500 mg PO DAILY - Plan Plan:: I/P Acute: Bacteremia -2/4 blood cultures positive for gram positive cocci- called from lab this morning -Cont on Vanco and zosyn for now until confirmation of organism and sensitivity. -IVF, NS @ 100/hr -Antipyrectics PRN for fever Cellulitis of right knee -Erythema, redness, and pain to right knee, although no drainage. -Reports falling on and hitting knee on linoleum with concrete underneath -Reports fever, chills, and night sweats since Saturday -Took acetaminophen and NSAIDs for treatment prior to arrival. -Was able to walk on extremity, 90 degree flexion with "tightness", full extension -Afebrile in ED with stable vital signs -WBC 16.83 -CRP 41.7 -Lactic acid 1.5 -Blood cultures obtained -Dr. Farias, orthopedic surgeon, contacted by ED provider and doubts septic arthritis -Formal consult placed for Orthopedics this afternoon -Dr. Farias did see patient this afternoon, planning I&D at bedside later today; questioned need for CT, Dr. Farias states no need at this time. -Knee x-ray essentially unremarkable pending formal radiologist review. -Doxycycline and Rocephin given in ED -Knee was not tapped in ED -Will switch to Vancomycin and Zosyn -PRN pain control medications as ordered Hypokalemia -Potassium 3.0 in ED--3.4 today -Will monitor and supplement as necessary -Normal mag- follow mag levels also Anemia -Hgb 13.2 -Hct 39.0 -Will order iron studies, B12, and Folic acid---Iron studies with iron level low at 14 -Start ferrous sulfate -Occult stool ordered -Follow-up with PCP Renal insufficiency--stable -Unknown what baseline is -BUN 23 -Creatinine 1.5 -eGFR 47 -IV fluids as indicated -Monitor Chronic: Seizure disorder - Home Dilantin dose HLD Depression Hx/o brain neoplasm Short-term memory impairment Plan: Patient now with bacteremia; status change from Observation to Inpatient. CM/SW for discharge planning PT/OT GI prophylaxis: Pepcid DVT prophylaxis: KARLI Hose and Lovenox Other orders as indicated above Routine AM labs Home medications as ordered Code status: Full code. [facility].
[2017-02-14] MEDS ORDERED: Albuterol/Ipratropium 3.0-0.5 MG/3 ML Neb Soln NEB ONE (13:50)
[2017-02-14] MEDS ORDERED: Albuterol/Ipratropium 3.0-0.5 MG/3 ML Neb Soln ONE (13:58)
[2017-02-14] MEDS ORDERED: Sodium Chloride 0.9% 2,000 ML IV SCH (16:30)
--- NOTE | 2017-02-14 16:56 | CR ---
Chest: Two views of the chest were obtained. Comparison: No prior chest x-ray. Heart size is normal. Mild tortuosity of the thoracic aorta is seen. Lungs are clear. Mild degenerative change is noted throughout the spine. Impression: 1. Nothing acute is identified on two-view chest x-ray. Diagnostic code #2
--- NOTE | 2017-02-14 17:51 | PCM.PN ---
- General Info Date of Service: 02/14/17 Admission Dx/Problem (Free Text): Te is seen this evening. Resting in chair, slightly tachypnic but denies SOB. He has had course nonproductive cough all day by nursing reports. CXR has been ordered. He was febrile overnight with temp max of 103.0. He is weak. He is eating but has lower than normal appetite. He is voiding and did have BM today, denies nausea. Pain to right knee and leg is improved today. Functional Status: Reports: Pain Controlled, Tolerating Diet (eating fair amt at meals), Ambulating (with assist of walker and 1-2; weak and unable to bare full wt to right leg), Urinating. Denies: New Symptoms - Review of Systems General: Reports: Fever, Weakness, Fatigue, Malaise, Night Sweats HEENT: Reports: No Symptoms, Sore Throat. Denies: Headaches (denies) Pulmonary: Reports: Cough. Denies: Shortness of Breath (denies SOB ), Sputum, Wheezing Cardiovascular: Reports: No Symptoms. Denies: Chest Pain, Palpitations Gastrointestinal: Reports: No Symptoms. Denies: Abdominal Pain, Nausea Genitourinary: Reports: No Symptoms Musculoskeletal: Reports: Leg Pain (rt knee and leg) - Patient Data Vitals - Most Recent: Last Vital Signs Temp 101.1 F H 02/14/17 16:08 Pulse 102 H 02/14/17 15:57 Resp 21 H 02/14/17 15:57 BP 131/63 02/14/17 15:57 Pulse Ox 93 L 02/14/17 15:57 Weight - Most Recent: 213 lb I&O - Last 24 Hours: Intake & Output 02/14/17 02/14/17 02/14/17 06:59 14:59 22:59 Intake Total 2174 2392 Output Total 200 Balance 1974 2392 Lab Results Last 24 Hours: Laboratory Results - last 24 hr 02/14/17 02/14/17 02/14/17 Range/Units 05:40 05:40 17:03 WBC 18.37 H (4.23-9.07) K/mm3 RBC 3.24 L (4.63-6.08) M/mm3 Hgb 10.2 L (13.7-17.5) gm/L Hct 31.0 L (40.1-51.0) % MCV 95.7 H (79.0-92.2) fl MCH 31.5 (25.7-32.2) pg MCHC 32.9 (32.2-35.5) g/dl RDW Std Deviation 49.4 H (35.1-43.9) fL Plt Count 262 (163-337) K/mm3 MPV 10.6 (9.4-12.3) fl Neut % (Auto) 81.4 H (34.0-67.9) % Lymph % (Auto) 6.9 L (21.8-53.1) % Andrew % (Auto) 10.4 (5.3-12.2) % Eos % (Auto) 0.3 L (0.8-7.0) Baso % (Auto) 0.2 (0.1-1.2) % Neut # (Auto) 14.96 H (1.78-5.38) K/mm3 Lymph # (Auto) 1.27 L (1.32-3.57) K/mm3 Andrew # (Auto) 1.91 H (0.30-0.82) K/mm3 Eos # (Auto) 0.05 (0.04-0.54) K/mm3 Baso # (Auto) 0.03 (0.01-0.08) K/mm3 Manual Slide Review Abnormal smear Sodium 139 (136-145) mEq/L Potassium 3.5 (3.5-5.1) mEq/L Chloride 106 (98-107) mEq/L Carbon Dioxide 20 L (21-32) mEq/L Anion Gap 16.5 H (5-15) BUN 30 H (7-18) mg/dL Creatinine 1.9 H (0.7-1.3) mg/dL Est Cr Clr Drug Dosing 38.95 mL/min Estimated GFR (MDRD) 36 (>60) mL/min BUN/Creatinine Ratio 15.8 (14-18) Glucose 164 H (80-115) mg/dL Lactic Acid 1.1 (0.4-2.0) mmol/L Calcium 7.8 L (8.5-10.1) mg/dL Magnesium 1.8 (1.8-2.4) mg/dl C-Reactive Protein 42.7 H* (<1.0) mg/dL Joni Results Last 24 Hours: Microbiology 02/13/17 17:15 Gram Stain - Final Knee, Right Anaerobic Culture - Preliminary Gram Positive Cocci Med Orders - Current: Current Medications Acetaminophen (Tylenol) 650 mg PO Q4H PRN PRN Reason: Pain/Fever Last Admin: 02/14/17 16:08 Dose: 650 mg Acetaminophen (Tylenol) 650 mg PO TID [facility] Hydrocodone Bitart/Acetaminophen ([place] 325-5 Mg) 1 tab PO Q4H PRN PRN Reason: Pain (moderate 4-6) Last Admin: 02/13/17 13:12 Dose: 1 tab Albuterol (Proventil Neb Soln) 2.5 mg NEB QIDRT [facility] Albuterol/Ipratropium (Duoneb 3.0-0.5 Mg/3 Ml) 3 ml NEB Q4HRRT PRN PRN Reason: wheezing/SOB/cough Ascorbic Acid (Vitamin C) 500 mg PO DAILY [facility] Last Admin: 02/14/17 09:53 Dose: 500 mg Benzonatate (Tessalon Perles) 200 mg PO TID [facility] Bisacodyl (Dulcolax) 5 mg PO DAILY PRN PRN Reason: Constipation Docusate Sodium (Colace) 100 mg PO BID PRN PRN Reason: Constipation Enoxaparin Sodium (Lovenox) 40 mg SUBCUT DAILY [facility] Last Admin: 02/14/17 09:54 Dose: 40 mg Famotidine (Pepcid) 20 mg PO BID [facility] Last Admin: 02/14/17 09:53 Dose: 20 mg Ferrous Sulfate (Ferrous Sulfate) 325 mg PO WITHBREAKFAST [facility] Last Admin: 02/14/17 06:23 Dose: 325 mg Guaifenesin (Mucinex) 1,200 mg PO BID [facility] Hydromorphone HCl (Dilaudid) 0.25 mg IVPUSH Q2H PRN PRN Reason: Pain (severe 7-10) Last Admin: 02/13/17 17:24 Dose: 0.25 mg Piperacillin Sod/Tazobactam (Sod 4.5 gm/ Sodium Chloride) 100 mls @ 25 mls/hr IV Q8H [facility] Last Admin: 02/14/17 14:04 Dose: 25 mls/hr Vancomycin HCl 1.75 gm/ Sodium (Chloride) 500 mls @ 333.333 mls/hr IV Q24H [facility] Last Admin: 02/13/17 21:30 Dose: 333.333 mls/hr Sodium Chloride (Normal Saline) 1,000 mls @ 250 mls/hr IV ONETIME ONE Stop: 02/14/17 21:44 Ibuprofen (Motrin) 600 mg PO Q6H PRN PRN Reason: Pain (moderate 4-6) Last Admin: 02/12/17 23:03 Dose: 600 mg Ondansetron HCl (Zofran Odt) 4 mg PO Q6H PRN PRN Reason: nausea, able to take PO Ondansetron HCl (Zofran) 4 mg IV Q6H PRN PRN Reason: Nausea/Vomiting Phenytoin Sodium (Phenytoin) 200 mg PO BID [facility] Last Admin: 02/14/17 09:53 Dose: 200 mg Polyethylene Glycol (Miralax) 17 gm PO DAILY PRN PRN Reason: Constipation Saccharomyces Boulardii (Florastor) 250 mg PO BID [facility] Last Admin: 02/14/17 10:06 Dose: 250 mg Saccharomyces Boulardii (Florastor) 250 mg PO BID [facility] Simvastatin (Zocor) 10 mg PO BEDTIME [facility] Last Admin: 02/13/17 21:30 Dose: 10 mg Sodium Chloride (Saline Flush) 10 ml FLUSH ASDIRECTED PRN PRN Reason: Keep Vein Open Last Admin: 02/12/17 15:43 Dose: 10 ml Vancomycin HCl (Pharmacy To Dose - Vancomycin) 1 dose .XX ASDIRECTED [facility] Discontinued Medications Albuterol/Ipratropium (Duoneb 3.0-0.5 Mg/3 Ml) 3 ml NEB ONETIME ONE Stop: 02/14/17 13:51 Last Admin: 02/14/17 14:33 Dose: 3 ml Albuterol/Ipratropium (Duoneb 3.0-0.5 Mg/3 Ml) Confirm Administered Dose 3 ml .ROUTE .STK-MED ONE Stop: 02/14/17 13:59 Last Admin: 02/14/17 14:38 Dose: Not Given Doxycycline Hyclate (Vibramycin) Confirm Administered Dose 100 mg .ROUTE .STK- MED ONE Stop: 02/12/17 17:55 Last Admin: 02/12/17 18:12 Dose: Not Given Hydromorphone HCl (Dilaudid) 0.5 mg IVPUSH ONETIME ONE Stop: 02/12/17 17:30 Last Admin: 02/12/17 17:40 Dose: 0.5 mg Ceftriaxone Sodium 2 gm/ (Sodium Chloride) 100 mls @ 200 mls/hr IV ONETIME ONE Stop: 02/12/17 16:30 Last Admin: 02/12/17 16:20 Dose: 200 mls/hr Vancomycin HCl 1.5 gm/ Sodium (Chloride) 250 mls @ 250 mls/hr IV ONETIME ONE Stop: 02/12/17 17:03 Last Admin: 02/12/17 18:09 Dose: Not Given Doxycycline Hyclate 100 mg/ (Sodium Chloride) 100 mls @ 100 mls/hr IV ONETIME ONE Stop: 02/12/17 18:22 Last Admin: 02/12/17 18:12 Dose: Not Given Doxycycline Hyclate 100 mg/ (Sodium Chloride) 100 mls @ 100 mls/hr IV ONETIME ONE Stop: 02/12/17 18:55 Last Admin: 02/12/17 18:10 Dose: 100 mls/hr Potassium Chloride/Sodium Chloride (Normal Saline With 20 Meq Kcl) 1,000 mls @ 125 mls/hr IV ASDIRECTED [facility] Last Admin: 02/12/17 19:22 Dose: 125 mls/hr Piperacillin Sod/Tazobactam (Sod 4.5 gm/ Sodium Chloride) 100 mls @ 200 mls/hr IV ONETIME ONE Stop: 02/13/17 06:29 Last Admin: 02/13/17 05:25 Dose: 200 mls/hr Vancomycin HCl 1 gm/Vancomycin HCl 250 mg/ Sodium Chloride 250 mls @ 166.667 mls/hr IV Q24H [facility] Last Admin: 02/12/17 22:33 Dose: 166.667 mls/hr Sodium Chloride (Normal Saline) 1,000 mls @ 100 mls/hr IV ASDIRECTED [facility] Stop: 02/14/17 06:59 Last Admin: 02/13/17 20:23 Dose: 100 mls/hr Sodium Chloride (Normal Saline) 1,000 mls @ 100 mls/hr IV ASDIRECTED [facility] Last Admin: 02/14/17 14:06 Dose: 100 mls/hr Sodium Chloride (Normal Saline) 1,000 mls @ 999 mls/hr IV ASDIRECTED [facility] Last Admin: 02/14/17 10:05 Dose: 999 mls/hr Sodium Chloride (Normal Saline) 2,000 mls @ 500 mls/hr IV ASDIRECTED [facility] Stop: 02/14/17 20:29 Last Admin: 02/14/17 17:35 Dose: Not Given Sodium Chloride (Normal Saline) 1,000 mls @ 150 mls/hr IV ASDIRECTED [facility] Influenza Virus Vaccine (Pharmacy To Dose - Influenza Vaccine) 1 each IM ONETIME ONE Stop: 02/12/17 21:00 Influenza Virus Vaccine (Fluzone High-Dose 2016-) 180 mcg IM .ONCE ONE Stop: 02/13/17 10:01 Ketorolac Tromethamine (Toradol) 30 mg IVPUSH ONETIME ONE Stop: 02/13/17 13:46 Last Admin: 02/13/17 14:23 Dose: 30 mg Lidocaine HCl (Xylocaine 1%) 10 ml INJECT ONETIME ONE Stop: 02/12/17 16:12 Last Admin: 02/12/17 18:12 Dose: Not Given Potassium Chloride (Klor-Con M20) 40 meq PO ONETIME ONE Stop: 02/12/17 20:20 Last Admin: 02/12/17 22:29 Dose: 40 meq Potassium Chloride (Potassium Chloride) 40 meq PO ONETIME ONE Stop: 02/13/17 20:21 Last Admin: 02/13/17 21:30 Dose: 40 meq Saccharomyces Boulardii (Florastor) 500 mg PO BID [facility] Last Admin: 02/13/17 08:39 Dose: 500 mg - Exam Quality Assessment: DVT Prophylaxis General: Alert, Cooperative, No Acute Distress HEENT: Pupils Equal, EOMI, Mucous Membr. Moist/[place] Neck: Supple Lungs: Normal Respiratory Effort, Decreased Breath Sounds (bases). No: Rales, Rhonchi, Wheezing Cardiovascular: Regular Rate, Regular Rhythm GI/Abdominal Exam: Normal Bowel Sounds, Soft, Non-Tender (Male) Exam: Deferred Back Exam: Normal Inspection Extremities: Other (right leg is with sarah wrap from ankle to mid thigh. CMS to toes/feet is + and = bilat) Neurological: Normal Speech, Normal Tone. No: Strength Equal Bilateral (weak to left leg) Psy/Mental Status: Alert, Normal Mood - Problem List & Annotations (1) Bacteremia SNOMED Code(s): 0717822 Code(s): R78.81 - BACTEREMIA Status: Acute Priority: High Current Visit : Yes (2) Cellulitis of knee, right SNOMED Code(s): 94526362 Code(s): L03.115 - CELLULITIS OF RIGHT LOWER LIMB Status: Acute Priority : High Current Visit: Yes (3) Anemia SNOMED Code(s): 261247774 Code(s): D64.9 - ANEMIA, UNSPECIFIED Status: Acute Priority: Medium Current Visit: Yes Qualifiers: Anemia type: unspecified type Qualified Code(s): D64.9 - Anemia, unspecified (4) Hypokalemia SNOMED Code(s): 03362919 Code(s): E87.6 - HYPOKALEMIA Status: Resolved Priority: High Current Visit: Yes (5) Renal insufficiency SNOMED Code(s): 195092112 Code(s): N28.9 - DISORDER OF KIDNEY AND URETER, UNSPECIFIED Status: Chronic Priority: Medium Current Visit: Yes (6) HLD (hyperlipidemia) SNOMED Code(s): 39898605 Code(s): E78.5 - HYPERLIPIDEMIA, UNSPECIFIED Status: Chronic Priority: Low Current Visit: No Qualifiers: Hyperlipidemia type: unspecified Qualified Code(s): E78.5 - Hyperlipidemia , unspecified (7) History of depression SNOMED Code(s): 439431150 Code(s): Z86.59 - PERSONAL HISTORY OF OTHER MENTAL AND BEHAVIORAL DISORDERS Status: Chronic Priority: Low Current Visit: No (8) History of seizure SNOMED Code(s): 399605394 Code(s): Z87.898 - PERSONAL HISTORY OF OTHER SPECIFIED CONDITIONS Status: Chronic Priority: Low Current Visit: No (9) Iron deficiency anemia SNOMED Code(s): 19522742 Code(s): D50.9 - IRON DEFICIENCY ANEMIA, UNSPECIFIED Status: Acute Priority: Medium Current Visit: Yes Qualifiers: Iron deficiency anemia type: unspecified iron deficiency Qualified Code(s) : D50.9 - Iron deficiency anemia, unspecified - Problem List Review Problem List Initiated/Reviewed/Updated: Yes - My Orders Last 24 Hours: My Active Orders 02/14/17 16:14 RT Aerosol Therapy [RC] ASDIRECTED 02/14/17 16:16 IS (RT) [RT Incentive Spirometry] [RC] Q2HWA 02/14/17 16:17 STREP PNEUMONIAE ANTIGEN [MREF] Routine RT Acapella [RESPCARE] Routine 02/14/17 16:21 LINK ASSEMBLER Eval and Treat [LINK ASSEMBLER Evaluation and Treatment] [CONS] Routine 02/14/17 17:03 MYCOPLASMA PNEUMONIAE IGM AB [CHEM] Routine 02/14/17 17:05 RESPIRATORY PANEL BY PCR [MREF] Routine 02/14/17 17:45 Sodium Chloride 0.9% [Normal Saline] 1,000 ml IV ONETIME 02/14/17 21:00 Acetaminophen [Tylenol] 650 mg PO TID Albuterol [Proventil Neb Soln] 2.5 mg NEB QIDRT Benzonatate [Tessalon Perles] 200 mg PO TID Saccharomyces Boulardii [Florastor] 250 mg PO BID guaiFENesin [Mucinex] 1,200 mg PO BID - Plan Plan:: I/P Acute: Bacteremia with likely sepsis -2/4 blood cultures positive for gram positive cocci- now with non MRSA staph aureus, no sensitivity yet -Cont on Vanco and zosyn IV for now until confirmation of organism and sensitivity of knee aspirate culture. -IVF--will increase fluid rate -Antipyrectics PRN for fever -VSS, will recheck lactic acid this evening Cellulitis of right knee -Erythema, redness, and pain to right knee, although no drainage. -Reports falling on and hitting knee on linoleum with concrete underneath; Reports fever, chills, and night sweats since Saturday; Took acetaminophen and NSAIDs for treatment prior to arrival; Was able to walk on extremity, 90 degree flexion with "tightness", full extension -WBC 16.83--17.57-->18.37 -CRP 41.7-->41.2-->42.7 -Lactic acid 1.5 initially -Blood cultures obtained-- Bacteremia as noted above -Dr. Farias, orthopedic surgeon, Formal consult placed for Orthopedics -- I&D of knee done yesterday with Dr. Farias- cultures with gram + cocci thus far -Knee x-ray essentially unremarkable pending formal radiologist review. -Doxycycline and Rocephin given in ED; switched to Vancomycin and Zosyn inpatient -PRN pain control medications as ordered ? early evolving RML/RLL pneumonia -Coughing, dry and hacky all day, continues to be febrile; CXR obtained- awaiting report -Vanco/Zosyn as above -Repeat lactic acid this evening ordered -RT, scheduled nebs, IS/FV -Mucinex, tessalon perles and cough suppressant -Pepcid BID to cover possibility of aspiration -LINK ASSEMBLER for swallow eval as cough is with choking like sound at times; per nursing swallows pills and food without any difficulty thus far. Hypokalemia--resolved -Will monitor and supplement as necessary -Normal mag- follow mag levels also Anemia -Hgb 13.2 -Hct 39.0 -Will order iron studies, B12, and Folic acid---Iron studies with iron level low at 14 -Start ferrous sulfate -Occult stool ordered--Negative -Follow-up with PCP for repeat labs after discharge in one month Renal insufficiency--stable -Unknown what baseline is -BUN 23--22-->30 -Creatinine 1.5-->1.5-->1.9 -eGFR 47 -IV fluids --- increase rate to 250cc/hr x 2L then rate to 150cc/hr -Monitor Chronic: Seizure disorder - Home Dilantin dose HLD Depression- cont home meds Hx/o brain neoplasm Short-term memory impairment Plan: Patient appears worse today than yesterday, feel he is hovering on the border of full sepsis; repeat lactic acid and increase fluid rate and continue close monitoring. Add tx for PNA CM/SW for discharge planning--Discussions ongoing with [facility] for transfer, beds not available at this time. PT/OT LINK ASSEMBLER for swallow eval and also cog eval as patient seems to be intermittently confused--acute due to infection vs chronic?? GI prophylaxis: Pepcid DVT prophylaxis: KARLI Hose and Lovenox Routine AM labs Code status: Full code. PCP is Dr. Ibrahim with [facility] here in [place].
[2017-02-14] MEDS: Acetaminophen 325 MG Tab PO SCH (20:28)
[2017-02-14] MEDS: Simvastatin 10 MG Tab PO SCH (20:29)
[2017-02-14] MEDS: guaiFENesin 600 MG Tab.ER PO SCH (20:29)
[2017-02-14] MEDS: Benzonatate 100 MG Cap PO SCH (20:30)
[2017-02-14] MEDS: Codeine/guaiFENesin 100-10 MG/5 ML Syrup 5 ML Cup PO PRN (20:30)
[2017-02-14] MEDS: Vancomycin 1.75 GM in Sodium Chloride 0.9% 500 ML IV SCH (20:31)
[2017-02-14] MEDS: Albuterol 0.083% 2.5 MG/3 ML Neb Soln NEB SCH (20:51)
[2017-02-14] MEDS ORDERED: Saccharomyces Boulardii (Probiotic) 250 MG Cap PO SCH (21:00)
[2017-02-14] MEDS ORDERED: Ibuprofen 800 MG Tab PO ONE (22:58)
[2017-02-14] MEDS: Albuterol/Ipratropium 3.0-0.5 MG/3 ML Neb Soln NEB PRN (23:17)
[2017-02-15] MEDS: HYDROmorphone 0.5 MG/0.5 ML Syringe IVPUSH PRN (00:58)
[2017-02-15] MEDS: Sodium Chloride 0.9% 1,000 ML IV SCH ×3 (01:10→17:41)
[2017-02-15] MEDS: Albuterol 0.083% 2.5 MG/3 ML Neb Soln NEB SCH ×4 (06:27→20:20)
[2017-02-15] MEDS: Piperacillin/Tazobactam 4.5 GM in Sodium Chloride 0.9% 100 ML IV SCH ×2 (06:47→14:04)
[2017-02-15] MEDS: Ferrous Sulfate 325 MG Tab PO SCH (06:47)
[2017-02-15] MEDS: Saccharomyces Boulardii (Probiotic) 250 MG Cap PO SCH ×2 (08:55→20:49)
[2017-02-15] MEDS: Enoxaparin 40 MG/0.4 ML Syringe SUBCUT SCH (08:57)
[2017-02-15] MEDS: guaiFENesin 600 MG Tab.ER PO SCH ×2 (08:58→20:49)
[2017-02-15] MEDS: Famotidine 20 MG Tab PO SCH ×2 (08:58→20:50)
[2017-02-15] MEDS: Acetaminophen 325 MG Tab PO SCH ×3 (08:59→20:51)
[2017-02-15] MEDS: Benzonatate 100 MG Cap PO SCH ×3 (08:59→20:50)
[2017-02-15] MEDS: Phenytoin 100 MG Cap.ER PO SCH ×2 (08:59→20:50)
[2017-02-15] MEDS: Ascorbic Acid 500 MG Tab PO SCH (09:00)
--- NOTE | 2017-02-15 10:34 | PCM.PN ---
- General Info Date of Service: 02/15/17 Admission Dx/Problem (Free Text): Te is seen this morning up and ambulatory with nursing to BR. He looks significantly better; he is laughing and joking with staff, very appropriate in conversation. He continues to cough but it is less frequent. Denies SOB or CP this morning. States leg pain is improved. He has had loose stools this morning. He was febrile overnight at 103.0 at around 2300, no fevers since that time. Otherwise VSS. Functional Status: Reports: Pain Controlled, Tolerating Diet, Ambulating, Urinating, Incentive Spirometry. Denies: New Symptoms - Review of Systems General: Reports: Fever (temp max 103.0 overnight) HEENT: Reports: No Symptoms Pulmonary: Reports: Cough. Denies: Shortness of Breath, Sputum Cardiovascular: Reports: No Symptoms. Denies: Chest Pain, Palpitations Gastrointestinal: Reports: No Symptoms. Denies: Abdominal Pain, Nausea Genitourinary: Reports: No Symptoms Musculoskeletal: Reports: Leg Pain Skin: Reports: No Symptoms Neurological: Reports: No Symptoms (intermittent confusion seems to be resolved this morning; he is laughing and joking this morning which is the most interaction he has had thus far) Psychiatric: Reports: No Symptoms - Patient Data Vitals - Most Recent: Last Vital Signs Temp 97.0 F 02/15/17 08:59 Pulse 79 02/15/17 08:34 Resp 24 H 02/15/17 08:34 BP 126/74 02/15/17 08:34 Pulse Ox 97 02/15/17 08:34 Weight - Most Recent: 211 lb 2 oz I&O - Last 24 Hours: Intake & Output 02/14/17 02/15/17 02/15/17 22:59 06:59 14:59 Intake Total 2752 2446 Output Total 350 Balance 2752 2096 Lab Results Last 24 Hours: Laboratory Results - last 24 hr 02/14/17 02/14/17 02/15/17 Range/Units 17:03 17:03 05:35 WBC 18.02 H (4.23-9.07) K/mm3 RBC 3.26 L (4.63-6.08) M/mm3 Hgb 10.4 L (13.7-17.5) gm/L Hct 31.5 L (40.1-51.0) % MCV 96.6 H (79.0-92.2) fl MCH 31.9 (25.7-32.2) pg MCHC 33.0 (32.2-35.5) g/dl RDW Std Deviation 52.4 H (35.1-43.9) fL Plt Count 279 (163-337) K/mm3 MPV 10.3 (9.4-12.3) fl Neut % (Auto) 80.7 H (34.0-67.9) % Lymph % (Auto) 6.9 L (21.8-53.1) % [place] % (Auto) 9.8 (5.3-12.2) % Eos % (Auto) 0.3 L (0.8-7.0) Baso % (Auto) 0.1 (0.1-1.2) % Neut # (Auto) 14.53 H (1.78-5.38) K/mm3 Lymph # (Auto) 1.24 L (1.32-3.57) K/mm3 [place] # (Auto) 1.77 H (0.30-0.82) K/mm3 Eos # (Auto) 0.06 (0.04-0.54) K/mm3 Baso # (Auto) 0.02 (0.01-0.08) K/mm3 Manual Slide Review Abnormal smear Sodium (136-145) mEq/L Potassium (3.5-5.1) mEq/L Chloride (98-107) mEq/L Carbon Dioxide (21-32) mEq/L Anion Gap (5-15) BUN (7-18) mg/dL Creatinine (0.7-1.3) mg/dL Est Cr Clr Drug Dosing mL/min Estimated GFR (MDRD) (>60) mL/min BUN/Creatinine Ratio (14-18) Glucose (80-115) mg/dL Lactic Acid 1.1 (0.4-2.0) mmol/L Calcium (8.5-10.1) mg/dL Magnesium (1.8-2.4) mg/dl C-Reactive Protein (<1.0) mg/dL NT-Pro-B Natriuret Pep (0-125) pg/mL Mycoplasma pneumon IgM Negative (NEGATIVE) 02/15/17 02/15/17 Range/Units 05:35 05:35 WBC (4.23-9.07) K/mm3 RBC (4.63-6.08) M/mm3 Hgb (13.7-17.5) gm/L Hct (40.1-51.0) % MCV (79.0-92.2) fl MCH (25.7-32.2) pg MCHC (32.2-35.5) g/dl RDW Std Deviation (35.1-43.9) fL Plt Count (163-337) K/mm3 MPV (9.4-12.3) fl Neut % (Auto) (34.0-67.9) % Lymph % (Auto) (21.8-53.1) % [place] % (Auto) (5.3-12.2) % Eos % (Auto) (0.8-7.0) Baso % (Auto) (0.1-1.2) % Neut # (Auto) (1.78-5.38) K/mm3 Lymph # (Auto) (1.32-3.57) K/mm3 [place] # (Auto) (0.30-0.82) K/mm3 Eos # (Auto) (0.04-0.54) K/mm3 Baso # (Auto) (0.01-0.08) K/mm3 Manual Slide Review Sodium 141 (136-145) mEq/L Potassium 4.0 (3.5-5.1) mEq/L Chloride 109 H (98-107) mEq/L Carbon Dioxide 21 (21-32) mEq/L Anion Gap 15.0 (5-15) BUN 27 H (7-18) mg/dL Creatinine 2.0 H (0.7-1.3) mg/dL Est Cr Clr Drug Dosing 37.01 mL/min Estimated GFR (MDRD) 33 (>60) mL/min BUN/Creatinine Ratio 13.5 L (14-18) Glucose 150 H (80-115) mg/dL Lactic Acid 1.3 (0.4-2.0) mmol/L Calcium 7.7 L (8.5-10.1) mg/dL Magnesium 1.9 (1.8-2.4) mg/dl C-Reactive Protein 37.4 H* (<1.0) mg/dL NT-Pro-B Natriuret Pep 6977 H (0-125) pg/mL Mycoplasma pneumon IgM (NEGATIVE) Joni Results Last 24 Hours: Microbiology 02/13/17 17:15 Gram Stain - Final Knee, Right Anaerobic Culture - Preliminary Staphylococcus Aureus Med Orders - Current: Current Medications Acetaminophen (Tylenol) 650 mg PO Q4H PRN PRN Reason: Pain/Fever Last Admin: 02/14/17 16:08 Dose: 650 mg Acetaminophen (Tylenol) 650 mg PO TID [facility] Last Admin: 02/15/17 08:59 Dose: 650 mg Hydrocodone Bitart/Acetaminophen ([place] 325-5 Mg) 1 tab PO Q4H PRN PRN Reason: Pain (moderate 4-6) Last Admin: 02/13/17 13:12 Dose: 1 tab Albuterol (Proventil Neb Soln) 2.5 mg NEB QIDRT [facility] Last Admin: 02/15/17 06:27 Dose: 2.5 mg Albuterol/Ipratropium (Duoneb 3.0-0.5 Mg/3 Ml) 3 ml NEB Q4HRRT PRN PRN Reason: wheezing/SOB/cough Last Admin: 02/14/17 23:17 Dose: 3 ml Ascorbic Acid (Vitamin C) 500 mg PO DAILY [facility] Last Admin: 02/15/17 09:00 Dose: 500 mg Benzonatate (Tessalon Perles) 200 mg PO TID [facility] Last Admin: 02/15/17 08:59 Dose: 200 mg Bisacodyl (Dulcolax) 5 mg PO DAILY PRN PRN Reason: Constipation Docusate Sodium (Colace) 100 mg PO BID PRN PRN Reason: Constipation Enoxaparin Sodium (Lovenox) 40 mg SUBCUT DAILY [facility] Last Admin: 02/15/17 08:57 Dose: 40 mg Famotidine (Pepcid) 20 mg PO BID [facility] Last Admin: 02/15/17 08:58 Dose: 20 mg Ferrous Sulfate (Ferrous Sulfate) 325 mg PO WITHBREAKFAST [facility] Last Admin: 02/15/17 06:47 Dose: 325 mg Guaifenesin (Mucinex) 1,200 mg PO BID [facility] Last Admin: 02/15/17 08:58 Dose: 1,200 mg Guaifenesin/Codeine Phosphate (Robitussin Ac) 5 ml PO Q4H PRN PRN Reason: Cough Last Admin: 02/14/17 20:30 Dose: 5 ml Hydromorphone HCl (Dilaudid) 0.25 mg IVPUSH Q2H PRN PRN Reason: Pain (severe 7-10) Last Admin: 02/15/17 00:58 Dose: 0.25 mg Piperacillin Sod/Tazobactam (Sod 4.5 gm/ Sodium Chloride) 100 mls @ 25 mls/hr IV Q8H [facility] Last Admin: 02/15/17 06:47 Dose: 25 mls/hr Vancomycin HCl 1.75 gm/ Sodium (Chloride) 500 mls @ 333.333 mls/hr IV Q24H [facility] Last Admin: 02/14/17 20:31 Dose: 333.333 mls/hr Sodium Chloride (Normal Saline) 1,000 mls @ 150 mls/hr IV ASDIRECTED [facility] Last Admin: 02/15/17 08:56 Dose: 150 mls/hr Ibuprofen (Motrin) 600 mg PO Q6H PRN PRN Reason: Pain (moderate 4-6) Last Admin: 02/12/17 23:03 Dose: 600 mg Ondansetron HCl (Zofran Odt) 4 mg PO Q6H PRN PRN Reason: nausea, able to take PO Ondansetron HCl (Zofran) 4 mg IV Q6H PRN PRN Reason: Nausea/Vomiting Phenytoin Sodium (Phenytoin) 200 mg PO BID [facility] Last Admin: 02/15/17 08:59 Dose: 200 mg Polyethylene Glycol (Miralax) 17 gm PO DAILY PRN PRN Reason: Constipation Saccharomyces Boulardii (Florastor) 250 mg PO BID [facility] Last Admin: 02/15/17 08:55 Dose: 250 mg Simvastatin (Zocor) 10 mg PO BEDTIME [facility] Last Admin: 02/14/17 20:29 Dose: 10 mg Sodium Chloride (Saline Flush) 10 ml FLUSH ASDIRECTED PRN PRN Reason: Keep Vein Open Last Admin: 02/12/17 15:43 Dose: 10 ml Vancomycin HCl (Pharmacy To Dose - Vancomycin) 1 dose .XX ASDIRECTED [facility] Discontinued Medications Albuterol/Ipratropium (Duoneb 3.0-0.5 Mg/3 Ml) 3 ml NEB ONETIME ONE Stop: 02/14/17 13:51 Last Admin: 02/14/17 14:33 Dose: 3 ml Albuterol/Ipratropium (Duoneb 3.0-0.5 Mg/3 Ml) Confirm Administered Dose 3 ml .ROUTE .STK-MED ONE Stop: 02/14/17 13:59 Last Admin: 02/14/17 14:38 Dose: Not Given Doxycycline Hyclate (Vibramycin) Confirm Administered Dose 100 mg .ROUTE .STK- MED ONE Stop: 02/12/17 17:55 Last Admin: 02/12/17 18:12 Dose: Not Given Hydromorphone HCl (Dilaudid) 0.5 mg IVPUSH ONETIME ONE Stop: 02/12/17 17:30 Last Admin: 02/12/17 17:40 Dose: 0.5 mg Ceftriaxone Sodium 2 gm/ (Sodium Chloride) 100 mls @ 200 mls/hr IV ONETIME ONE Stop: 02/12/17 16:30 Last Admin: 02/12/17 16:20 Dose: 200 mls/hr Vancomycin HCl 1.5 gm/ Sodium (Chloride) 250 mls @ 250 mls/hr IV ONETIME ONE Stop: 02/12/17 17:03 Last Admin: 02/12/17 18:09 Dose: Not Given Doxycycline Hyclate 100 mg/ (Sodium Chloride) 100 mls @ 100 mls/hr IV ONETIME ONE Stop: 02/12/17 18:22 Last Admin: 02/12/17 18:12 Dose: Not Given Doxycycline Hyclate 100 mg/ (Sodium Chloride) 100 mls @ 100 mls/hr IV ONETIME ONE Stop: 02/12/17 18:55 Last Admin: 02/12/17 18:10 Dose: 100 mls/hr Potassium Chloride/Sodium Chloride (Normal Saline With 20 Meq Kcl) 1,000 mls @ 125 mls/hr IV ASDIRECTED [facility] Last Admin: 02/12/17 19:22 Dose: 125 mls/hr Piperacillin Sod/Tazobactam (Sod 4.5 gm/ Sodium Chloride) 100 mls @ 200 mls/hr IV ONETIME ONE Stop: 02/13/17 06:29 Last Admin: 02/13/17 05:25 Dose: 200 mls/hr Vancomycin HCl 1 gm/Vancomycin HCl 250 mg/ Sodium Chloride 250 mls @ 166.667 mls/hr IV Q24H [facility] Last Admin: 02/12/17 22:33 Dose: 166.667 mls/hr Sodium Chloride (Normal Saline) 1,000 mls @ 100 mls/hr IV ASDIRECTED [facility] Stop: 02/14/17 06:59 Last Admin: 02/13/17 20:23 Dose: 100 mls/hr Sodium Chloride (Normal Saline) 1,000 mls @ 100 mls/hr IV ASDIRECTED [facility] Last Admin: 02/14/17 14:06 Dose: 100 mls/hr Sodium Chloride (Normal Saline) 1,000 mls @ 999 mls/hr IV ASDIRECTED [facility] Last Admin: 02/14/17 10:05 Dose: 999 mls/hr Sodium Chloride (Normal Saline) 2,000 mls @ 500 mls/hr IV ASDIRECTED [facility] Stop: 02/14/17 20:29 Last Admin: 02/14/17 17:35 Dose: Not Given Sodium Chloride (Normal Saline) 1,000 mls @ 150 mls/hr IV ASDIRECTED [facility] Sodium Chloride (Normal Saline) 1,000 mls @ 250 mls/hr IV ASDIRECTED [facility] Stop: 02/15/17 01:59 Last Admin: 02/14/17 20:45 Dose: 250 mls/hr Ibuprofen (Motrin) 800 mg PO ONETIME ONE Stop: 02/14/17 22:59 Last Admin: 02/14/17 23:08 Dose: 800 mg Influenza Virus Vaccine (Pharmacy To Dose - Influenza Vaccine) 1 each IM ONETIME ONE Stop: 02/12/17 21:00 Influenza Virus Vaccine (Fluzone High-Dose ) 180 mcg IM .ONCE ONE Stop: 02/13/17 10:01 Ketorolac Tromethamine (Toradol) 30 mg IVPUSH ONETIME ONE Stop: 02/13/17 13:46 Last Admin: 02/13/17 14:23 Dose: 30 mg Lidocaine HCl (Xylocaine 1%) 10 ml INJECT ONETIME ONE Stop: 02/12/17 16:12 Last Admin: 02/12/17 18:12 Dose: Not Given Potassium Chloride (Klor-Con M20) 40 meq PO ONETIME ONE Stop: 02/12/17 20:20 Last Admin: 02/12/17 22:29 Dose: 40 meq Potassium Chloride (Potassium Chloride) 40 meq PO ONETIME ONE Stop: 02/13/17 20:21 Last Admin: 02/13/17 21:30 Dose: 40 meq Saccharomyces Boulardii (Florastor) 500 mg PO BID [facility] Last Admin: 02/13/17 08:39 Dose: 500 mg Saccharomyces Boulardii (Florastor) 250 mg PO BID [facility] Last Admin: 02/14/17 21:49 Dose: Not Given - Exam Quality Assessment: Supplemental Oxygen, DVT Prophylaxis General: Alert, Oriented, Cooperative, No Acute Distress HEENT: Pupils Equal, Pupils Reactive, EOMI, Mucous Membr. Moist/[place] Lungs: Clear to Auscultation, Normal Respiratory Effort. No: Crackles, Rhonchi , Wheezing Cardiovascular: Regular Rate. No: Regular Rhythm GI/Abdominal Exam: Normal Bowel Sounds, Soft, Non-Tender (Male) Exam: Deferred Back Exam: Normal Inspection Extremities: Pedal Edema (Rt LE is with sarah wrap ) Peripheral Pulses: 2+: Posterior Tibial (L), Posterior Tibial (R), Dorsalis Pedis (L), Dorsalis Pedis (R) Neurological: No New Focal Deficit Psy/Mental Status: Alert, Normal Affect, Normal Mood - Problem List & Annotations (1) Bacteremia SNOMED Code(s): 7914448 Code(s): R78.81 - BACTEREMIA Status: Acute Priority: High Current Visit : Yes (2) Cellulitis of knee, right SNOMED Code(s): 41036762 Code(s): L03.115 - CELLULITIS OF RIGHT LOWER LIMB Status: Acute Priority : High Current Visit: Yes (3) Anemia SNOMED Code(s): 915929776 Code(s): D64.9 - ANEMIA, UNSPECIFIED Status: Acute Priority: Medium Current Visit: Yes Qualifiers: Anemia type: unspecified type Qualified Code(s): D64.9 - Anemia, unspecified (4) Hypokalemia SNOMED Code(s): 32132741 Code(s): E87.6 - HYPOKALEMIA Status: Resolved Priority: High Current Visit: Yes (5) Renal insufficiency SNOMED Code(s): 419784310 Code(s): N28.9 - DISORDER OF KIDNEY AND URETER, UNSPECIFIED Status: Chronic Priority: Medium Current Visit: Yes (6) HLD (hyperlipidemia) SNOMED Code(s): 10976136 Code(s): E78.5 - HYPERLIPIDEMIA, UNSPECIFIED Status: Chronic Priority: Low Current Visit: No Qualifiers: Hyperlipidemia type: unspecified Qualified Code(s): E78.5 - Hyperlipidemia , unspecified (7) History of depression SNOMED Code(s): 596477817 Code(s): Z86.59 - PERSONAL HISTORY OF OTHER MENTAL AND BEHAVIORAL DISORDERS Status: Chronic Priority: Low Current Visit: No (8) History of seizure SNOMED Code(s): 029609072 Code(s): Z87.898 - PERSONAL HISTORY OF OTHER SPECIFIED CONDITIONS Status: Chronic Priority: Low Current Visit: No (9) Iron deficiency anemia SNOMED Code(s): 63434637 Code(s): D50.9 - IRON DEFICIENCY ANEMIA, UNSPECIFIED Status: Acute Priority: Medium Current Visit: Yes Qualifiers: Iron deficiency anemia type: unspecified iron deficiency Qualified Code(s) : D50.9 - Iron deficiency anemia, unspecified - Problem List Review Problem List Initiated/Reviewed/Updated: Yes - My Orders Last 24 Hours: My Active Orders 02/14/17 16:16 IS (RT) [RT Incentive Spirometry] [RC] Q2HWA 02/14/17 16:21 [employer]A INTEGRATION DEVELOPER Eval and Treat [SOA INTEGRATION DEVELOPER Evaluation and Treatment] [CONS] Routine 02/14/17 17:05 RESPIRATORY PANEL BY PCR [MREF] Routine 02/14/17 17:45 STREP PNEUMONIAE ANTIGEN [MREF] Routine 02/14/17 19:31 Codeine/guaiFENesin [Robitussin AC] 5 ml PO Q4H PRN 02/14/17 19:47 SOA INTEGRATION DEVELOPER Eval and Treat [SOA INTEGRATION DEVELOPER Evaluation and Treatment] [CONS] Routine 02/14/17 21:00 Acetaminophen [Tylenol] 650 mg PO TID Albuterol [Proventil Neb Soln] 2.5 mg NEB QIDRT Benzonatate [Tessalon Perles] 200 mg PO TID guaiFENesin [Mucinex] 1,200 mg PO BID 02/15/17 08:43 Communication Order [RC] DAILY - Plan Plan:: I/P Acute: Bacteremia with likely sepsis -2/4 blood cultures positive for gram positive cocci- now with non MRSA staph aureus, see sensitivity for details -Cont on Vanco and zosyn IV for now until confirmation of organism and sensitivity of knee aspirate culture. -IVF--bolus last night now running at 150, tolerating well -Antipyrectics PRN for fever -VSS -Repeat BC today Cellulitis of right knee -Erythema, redness, and pain to right knee, although no drainage. -Reports falling on and hitting knee on linoleum with concrete underneath; Reports fever, chills, and night sweats since Saturday; Took acetaminophen and NSAIDs for treatment prior to arrival; Was able to walk on extremity, 90 degree flexion with "tightness", full extension -WBC 16.83--17.57-->18.37 -CRP 41.7-->41.2-->42.7 -Lactic acid 1.5 initially, recheck 1.1 -Blood cultures obtained-- Bacteremia as noted above -Dr. Farias, orthopedic surgeon, Formal consult placed for Orthopedics -- I&D of knee done yesterday with Dr. Farias- cultures with staph aureus, sensitivity pending. Dressing change daily and PRN. -Knee x-ray essentially unremarkable pending formal radiologist review. -Doxycycline and Rocephin given in ED; switched to Vancomycin and Zosyn inpatient -PRN pain control medications as ordered ? early evolving RML/RLL pneumonia---CXR reported as normal--will cont with aggressive RT treatments. -Coughing, dry and hacky continues, continues to be febrile; CXR obtained- as above -Vanco/Zosyn as above -RT, scheduled nebs, IS/FV -Mucinex, tessalon perles and cough suppressant -Pepcid BID to cover possibility of aspiration -SOA INTEGRATION DEVELOPER for swallow eval as cough is with choking like sound at times; per nursing swallows pills and food without any difficulty thus far. Hypokalemia--resolved -Will monitor and supplement as necessary -Normal mag- follow mag levels also Anemia -Hgb 13.2 -Hct 39.0 -Will order iron studies, B12, and Folic acid---Iron studies with iron level low at 14 -Start ferrous sulfate -Occult stool ordered--Negative -Follow-up with PCP for repeat labs after discharge in one month Renal insufficiency--stable -Unknown what baseline is -BUN 23--22-->30 -Creatinine 1.5-->1.5-->1.9 -eGFR 47 -IV fluids --- increase rate to 250cc/hr x 2L then rate to 150cc/hr -Monitor Chronic: Seizure disorder - Home Dilantin dose HLD Depression- cont home meds Hx/o brain neoplasm Short-term memory impairment Plan: Patient significantly improved from yesterday; starting to turn around and expected good results at this time. CM/SW for discharge planning--[facility] not [facility] at [facility]. If no beds open up- will expect DC in next 3-4 days. PT/OT SOA INTEGRATION DEVELOPER for swallow eval and also cog eval as patient seems to be intermittently confused--acute due to infection vs chronic?? GI prophylaxis: Pepcid DVT prophylaxis: KARLI Hose and Lovenox Routine AM labs Code status: Full code. PCP is Dr. Ibrahim with [facility] here in [place].
--- NOTE | 2017-02-15 13:03 | PCM.SURGPN ---
- General Info Date of Service: 02/15/17 Functional Status: Reports: Other (The pt and nursing report improvements in appearance of knee.) - Patient Data Vitals - Most Recent: Last Vital Signs Temp 97.0 F 02/15/17 08:59 Pulse 79 02/15/17 08:34 Resp 24 H 02/15/17 08:34 BP 126/74 02/15/17 08:34 Pulse Ox 97 02/15/17 11:25 Weight - Most Recent: 211 lb 2 oz I&O - Last 24 Hours: Intake & Output 02/14/17 02/15/17 02/15/17 22:59 06:59 14:59 Intake Total 2752 2446 Output Total 350 Balance 2752 2096 Lab Results Last 24 Hrs: Laboratory Results - last 24 hr 02/14/17 02/14/17 02/15/17 Range/Units 17:03 17:03 05:35 WBC 18.02 H (4.23-9.07) K/mm3 RBC 3.26 L (4.63-6.08) M/mm3 Hgb 10.4 L (13.7-17.5) gm/L Hct 31.5 L (40.1-51.0) % MCV 96.6 H (79.0-92.2) fl MCH 31.9 (25.7-32.2) pg MCHC 33.0 (32.2-35.5) g/dl RDW Std Deviation 52.4 H (35.1-43.9) fL Plt Count 279 (163-337) K/mm3 MPV 10.3 (9.4-12.3) fl Neut % (Auto) 80.7 H (34.0-67.9) % Lymph % (Auto) 6.9 L (21.8-53.1) % Wells % (Auto) 9.8 (5.3-12.2) % Eos % (Auto) 0.3 L (0.8-7.0) Baso % (Auto) 0.1 (0.1-1.2) % Neut # (Auto) 14.53 H (1.78-5.38) K/mm3 Lymph # (Auto) 1.24 L (1.32-3.57) K/mm3 Wells # (Auto) 1.77 H (0.30-0.82) K/mm3 Eos # (Auto) 0.06 (0.04-0.54) K/mm3 Baso # (Auto) 0.02 (0.01-0.08) K/mm3 Manual Slide Review Abnormal smear Sodium (136-145) mEq/L Potassium (3.5-5.1) mEq/L Chloride (98-107) mEq/L Carbon Dioxide (21-32) mEq/L Anion Gap (5-15) BUN (7-18) mg/dL Creatinine (0.7-1.3) mg/dL Est Cr Clr Drug Dosing mL/min Estimated GFR (MDRD) (>60) mL/min BUN/Creatinine Ratio (14-18) Glucose (80-115) mg/dL Lactic Acid 1.1 (0.4-2.0) mmol/L Calcium (8.5-10.1) mg/dL Magnesium (1.8-2.4) mg/dl C-Reactive Protein (<1.0) mg/dL NT-Pro-B Natriuret Pep (0-125) pg/mL Mycoplasma pneumon IgM Negative (NEGATIVE) 02/15/17 02/15/17 Range/Units 05:35 05:35 WBC (4.23-9.07) K/mm3 RBC (4.63-6.08) M/mm3 Hgb (13.7-17.5) gm/L Hct (40.1-51.0) % MCV (79.0-92.2) fl MCH (25.7-32.2) pg MCHC (32.2-35.5) g/dl RDW Std Deviation (35.1-43.9) fL Plt Count (163-337) K/mm3 MPV (9.4-12.3) fl Neut % (Auto) (34.0-67.9) % Lymph % (Auto) (21.8-53.1) % Wells % (Auto) (5.3-12.2) % Eos % (Auto) (0.8-7.0) Baso % (Auto) (0.1-1.2) % Neut # (Auto) (1.78-5.38) K/mm3 Lymph # (Auto) (1.32-3.57) K/mm3 Wells # (Auto) (0.30-0.82) K/mm3 Eos # (Auto) (0.04-0.54) K/mm3 Baso # (Auto) (0.01-0.08) K/mm3 Manual Slide Review Sodium 141 (136-145) mEq/L Potassium 4.0 (3.5-5.1) mEq/L Chloride 109 H (98-107) mEq/L Carbon Dioxide 21 (21-32) mEq/L Anion Gap 15.0 (5-15) BUN 27 H (7-18) mg/dL Creatinine 2.0 H (0.7-1.3) mg/dL Est Cr Clr Drug Dosing 37.01 mL/min Estimated GFR (MDRD) 33 (>60) mL/min BUN/Creatinine Ratio 13.5 L (14-18) Glucose 150 H (80-115) mg/dL Lactic Acid 1.3 (0.4-2.0) mmol/L Calcium 7.7 L (8.5-10.1) mg/dL Magnesium 1.9 (1.8-2.4) mg/dl C-Reactive Protein 37.4 H* (<1.0) mg/dL NT-Pro-B Natriuret Pep 6977 H (0-125) pg/mL Mycoplasma pneumon IgM (NEGATIVE) Joni Results Last 24 Hrs: Microbiology 02/13/17 17:15 Gram Stain - Final Knee, Right Anaerobic Culture - Preliminary Staphylococcus Aureus Med Orders - Current: Current Medications Acetaminophen (Tylenol) 650 mg PO Q4H PRN PRN Reason: Pain/Fever Last Admin: 02/14/17 16:08 Dose: 650 mg Acetaminophen (Tylenol) 650 mg PO TID [facility] Last Admin: 02/15/17 08:59 Dose: 650 mg Hydrocodone Bitart/Acetaminophen (Cowley 325-5 Mg) 1 tab PO Q4H PRN PRN Reason: Pain (moderate 4-6) Last Admin: 02/13/17 13:12 Dose: 1 tab Albuterol (Proventil Neb Soln) 2.5 mg NEB QIDRT [facility] Last Admin: 02/15/17 11:23 Dose: 2.5 mg Albuterol/Ipratropium (Duoneb 3.0-0.5 Mg/3 Ml) 3 ml NEB Q4HRRT PRN PRN Reason: wheezing/SOB/cough Last Admin: 02/14/17 23:17 Dose: 3 ml Ascorbic Acid (Vitamin C) 500 mg PO DAILY [facility] Last Admin: 02/15/17 09:00 Dose: 500 mg Benzonatate (Tessalon Perles) 200 mg PO TID [facility] Last Admin: 02/15/17 08:59 Dose: 200 mg Bisacodyl (Dulcolax) 5 mg PO DAILY PRN PRN Reason: Constipation Docusate Sodium (Colace) 100 mg PO BID PRN PRN Reason: Constipation Enoxaparin Sodium (Lovenox) 40 mg SUBCUT DAILY [facility] Last Admin: 02/15/17 08:57 Dose: 40 mg Famotidine (Pepcid) 20 mg PO BID [facility] Last Admin: 02/15/17 08:58 Dose: 20 mg Ferrous Sulfate (Ferrous Sulfate) 325 mg PO WITHBREAKFAST [facility] Last Admin: 02/15/17 06:47 Dose: 325 mg Guaifenesin (Mucinex) 1,200 mg PO BID [facility] Last Admin: 02/15/17 08:58 Dose: 1,200 mg Guaifenesin/Codeine Phosphate (Robitussin Ac) 5 ml PO Q4H PRN PRN Reason: Cough Last Admin: 02/14/17 20:30 Dose: 5 ml Hydromorphone HCl (Dilaudid) 0.25 mg IVPUSH Q2H PRN PRN Reason: Pain (severe 7-10) Last Admin: 02/15/17 00:58 Dose: 0.25 mg Piperacillin Sod/Tazobactam (Sod 4.5 gm/ Sodium Chloride) 100 mls @ 25 mls/hr IV Q8H [facility] Last Admin: 02/15/17 06:47 Dose: 25 mls/hr Vancomycin HCl 1.75 gm/ Sodium (Chloride) 500 mls @ 333.333 mls/hr IV Q24H [facility] Last Admin: 02/14/17 20:31 Dose: 333.333 mls/hr Sodium Chloride (Normal Saline) 1,000 mls @ 150 mls/hr IV ASDIRECTED [facility] Last Admin: 02/15/17 08:56 Dose: 150 mls/hr Ibuprofen (Motrin) 600 mg PO Q6H PRN PRN Reason: Pain (moderate 4-6) Last Admin: 02/12/17 23:03 Dose: 600 mg Ondansetron HCl (Zofran Odt) 4 mg PO Q6H PRN PRN Reason: nausea, able to take PO Ondansetron HCl (Zofran) 4 mg IV Q6H PRN PRN Reason: Nausea/Vomiting Phenytoin Sodium (Phenytoin) 200 mg PO BID [facility] Last Admin: 02/15/17 08:59 Dose: 200 mg Polyethylene Glycol (Miralax) 17 gm PO DAILY PRN PRN Reason: Constipation Saccharomyces Boulardii (Florastor) 250 mg PO BID [facility] Last Admin: 02/15/17 08:55 Dose: 250 mg Simvastatin (Zocor) 10 mg PO BEDTIME [facility] Last Admin: 02/14/17 20:29 Dose: 10 mg Sodium Chloride (Saline Flush) 10 ml FLUSH ASDIRECTED PRN PRN Reason: Keep Vein Open Last Admin: 02/12/17 15:43 Dose: 10 ml Vancomycin HCl (Pharmacy To Dose - Vancomycin) 1 dose .XX ASDIRECTED [facility] Discontinued Medications Albuterol/Ipratropium (Duoneb 3.0-0.5 Mg/3 Ml) 3 ml NEB ONETIME ONE Stop: 02/14/17 13:51 Last Admin: 02/14/17 14:33 Dose: 3 ml Albuterol/Ipratropium (Duoneb 3.0-0.5 Mg/3 Ml) Confirm Administered Dose 3 ml .ROUTE .STK-MED ONE Stop: 02/14/17 13:59 Last Admin: 02/14/17 14:38 Dose: Not Given Doxycycline Hyclate (Vibramycin) Confirm Administered Dose 100 mg .ROUTE .STK- MED ONE Stop: 02/12/17 17:55 Last Admin: 02/12/17 18:12 Dose: Not Given Hydromorphone HCl (Dilaudid) 0.5 mg IVPUSH ONETIME ONE Stop: 02/12/17 17:30 Last Admin: 02/12/17 17:40 Dose: 0.5 mg Ceftriaxone Sodium 2 gm/ (Sodium Chloride) 100 mls @ 200 mls/hr IV ONETIME ONE Stop: 02/12/17 16:30 Last Admin: 02/12/17 16:20 Dose: 200 mls/hr Vancomycin HCl 1.5 gm/ Sodium (Chloride) 250 mls @ 250 mls/hr IV ONETIME ONE Stop: 02/12/17 17:03 Last Admin: 02/12/17 18:09 Dose: Not Given Doxycycline Hyclate 100 mg/ (Sodium Chloride) 100 mls @ 100 mls/hr IV ONETIME ONE Stop: 02/12/17 18:22 Last Admin: 02/12/17 18:12 Dose: Not Given Doxycycline Hyclate 100 mg/ (Sodium Chloride) 100 mls @ 100 mls/hr IV ONETIME ONE Stop: 02/12/17 18:55 Last Admin: 02/12/17 18:10 Dose: 100 mls/hr Potassium Chloride/Sodium Chloride (Normal Saline With 20 Meq Kcl) 1,000 mls @ 125 mls/hr IV ASDIRECTED [facility] Last Admin: 02/12/17 19:22 Dose: 125 mls/hr Piperacillin Sod/Tazobactam (Sod 4.5 gm/ Sodium Chloride) 100 mls @ 200 mls/hr IV ONETIME ONE Stop: 02/13/17 06:29 Last Admin: 02/13/17 05:25 Dose: 200 mls/hr Vancomycin HCl 1 gm/Vancomycin HCl 250 mg/ Sodium Chloride 250 mls @ 166.667 mls/hr IV Q24H [facility] Last Admin: 02/12/17 22:33 Dose: 166.667 mls/hr Sodium Chloride (Normal Saline) 1,000 mls @ 100 mls/hr IV ASDIRECTED [facility] Stop: 02/14/17 06:59 Last Admin: 02/13/17 20:23 Dose: 100 mls/hr Sodium Chloride (Normal Saline) 1,000 mls @ 100 mls/hr IV ASDIRECTED [facility] Last Admin: 02/14/17 14:06 Dose: 100 mls/hr Sodium Chloride (Normal Saline) 1,000 mls @ 999 mls/hr IV ASDIRECTED [facility] Last Admin: 02/14/17 10:05 Dose: 999 mls/hr Sodium Chloride (Normal Saline) 2,000 mls @ 500 mls/hr IV ASDIRECTED [facility] Stop: 02/14/17 20:29 Last Admin: 02/14/17 17:35 Dose: Not Given Sodium Chloride (Normal Saline) 1,000 mls @ 150 mls/hr IV ASDIRECTED [facility] Sodium Chloride (Normal Saline) 1,000 mls @ 250 mls/hr IV ASDIRECTED [facility] Stop: 02/15/17 01:59 Last Admin: 02/14/17 20:45 Dose: 250 mls/hr Ibuprofen (Motrin) 800 mg PO ONETIME ONE Stop: 02/14/17 22:59 Last Admin: 02/14/17 23:08 Dose: 800 mg Influenza Virus Vaccine (Pharmacy To Dose - Influenza Vaccine) 1 each IM ONETIME ONE Stop: 02/12/17 21:00 Influenza Virus Vaccine (Fluzone High-Dose ) 180 mcg IM .ONCE ONE Stop: 02/13/17 10:01 Ketorolac Tromethamine (Toradol) 30 mg IVPUSH ONETIME ONE Stop: 02/13/17 13:46 Last Admin: 02/13/17 14:23 Dose: 30 mg Lidocaine HCl (Xylocaine 1%) 10 ml INJECT ONETIME ONE Stop: 02/12/17 16:12 Last Admin: 02/12/17 18:12 Dose: Not Given Potassium Chloride (Klor-Con M20) 40 meq PO ONETIME ONE Stop: 02/12/17 20:20 Last Admin: 02/12/17 22:29 Dose: 40 meq Potassium Chloride (Potassium Chloride) 40 meq PO ONETIME ONE Stop: 02/13/17 20:21 Last Admin: 02/13/17 21:30 Dose: 40 meq Saccharomyces Boulardii (Florastor) 500 mg PO BID [facility] Last Admin: 02/13/17 08:39 Dose: 500 mg Saccharomyces Boulardii (Florastor) 250 mg PO BID [facility] Last Admin: 02/14/17 21:49 Dose: Not Given - Exam General: Alert, Cooperative, No Acute Distress Lungs: Normal Respiratory Effort Extremities: Other (NVS intact for RLE. Ken's negative. Right pre-patellar bursa with erythema, swelling improved vs. previous examination. Tenderness noted. Min purulant drainage noted. 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5 MG/3 ML] Med 02/14/17 13:48 Active 3 ml NEB Q4HRRT PRN Benzonatate [Tessalon Perles] Med 02/14/17 21:00 Active 200 mg PO TID Codeine/guaiFENesin [Robitussin AC] Med 02/14/17 19:31 Active 5 ml PO Q4H PRN Sodium Chloride 0.9% [Normal Saline] 1,000 ml Med 02/15/17 02:00 Active IV ASDIRECTED guaiFENesin [Mucinex] Med 02/14/17 21:00 Active 1,200 mg PO BID Blood Culture x2 Reflex Set [OM.PC] Stat Oth 02/15/17 12:02 Ordered Medication Orders Acetaminophen (Tylenol) 650 mg PO Q4H PRN PRN Reason: Pain/Fever Last Admin: 02/14/17 16:08 Dose: 650 mg Admin: 02/14/17 03:19 Dose: 650 mg Admin: 02/13/17 18:24 Dose: 650 mg Admin: 02/13/17 04:20 Dose: 650 mg Acetaminophen (Tylenol) 650 mg PO TID [facility] Last Admin: 02/15/17 08:59 Dose: 650 mg Admin: 02/14/17 20:28 Dose: 650 mg Hydrocodone Bitart/Acetaminophen (Cowley 325-5 Mg) 1 tab PO Q4H PRN PRN Reason: Pain (moderate 4-6) Last Admin: 02/13/17 13:12 Dose: 1 tab Albuterol (Proventil Neb Soln) 2.5 mg NEB QIDRT [facility] Last Admin: 02/15/17 11:23 Dose: 2.5 mg Admin: 02/15/17 06:27 Dose: 2.5 mg Admin: 02/14/17 20:51 Dose: 2.5 mg Albuterol/Ipratropium (Duoneb 3.0-0.5 Mg/3 Ml) 3 ml NEB Q4HRRT PRN PRN Reason: wheezing/SOB/cough Last Admin: 02/14/17 23:17 Dose: 3 ml Ascorbic Acid (Vitamin C) 500 mg PO DAILY [facility] Last Admin: 02/15/17 09:00 Dose: 500 mg Admin: 02/14/17 09:53 Dose: 500 mg Benzonatate (Tessalon Perles) 200 mg PO TID [facility] Last Admin: 02/15/17 08:59 Dose: 200 mg Admin: 02/14/17 20:30 Dose: 200 mg Bisacodyl (Dulcolax) 5 mg PO DAILY PRN PRN Reason: Constipation Docusate Sodium (Colace) 100 mg PO BID PRN PRN Reason: Constipation Enoxaparin Sodium (Lovenox) 40 mg SUBCUT DAILY [facility] Last Admin: 02/15/17 08:57 Dose: 40 mg Admin: 02/14/17 09:54 Dose: 40 mg Admin: 02/13/17 08:40 Dose: 40 mg Famotidine (Pepcid) 20 mg PO BID [facility] Last Admin: 02/15/17 08:58 Dose: 20 mg Admin: 02/14/17 20:29 Dose: 20 mg Admin: 02/14/17 09:53 Dose: 20 mg Admin: 02/13/17 21:30 Dose: 20 mg Admin: 02/13/17 08:40 Dose: 20 mg Admin: 02/12/17 22:30 Dose: 20 mg Ferrous Sulfate (Ferrous Sulfate) 325 mg PO WITHBREAKFAST [facility] Last Admin: 02/15/17 06:47 Dose: 325 mg Admin: 02/14/17 06:23 Dose: 325 mg Guaifenesin (Mucinex) 1,200 mg PO BID [facility] Last Admin: 02/15/17 08:58 Dose: 1,200 mg Admin: 02/14/17 20:29 Dose: 1,200 mg Guaifenesin/Codeine Phosphate (Robitussin Ac) 5 ml PO Q4H PRN PRN Reason: Cough Last Admin: 02/14/17 20:30 Dose: 5 ml Hydromorphone HCl (Dilaudid) 0.25 mg IVPUSH Q2H PRN PRN Reason: Pain (severe 7-10) Last Admin: 02/15/17 00:58 Dose: 0.25 mg Admin: 02/13/17 17:24 Dose: 0.25 mg Piperacillin Sod/Tazobactam (Sod 4.5 gm/ Sodium Chloride) 100 mls @ 25 mls/hr IV Q8H [facility] Last Admin: 02/15/17 06:47 Dose: 25 mls/hr Infusion: 02/15/17 03:10 Dose: 25 mls/hr Admin: 02/14/17 23:10 Dose: 25 mls/hr Infusion: 02/14/17 18:04 Dose: 25 mls/hr Admin: 02/14/17 14:04 Dose: 25 mls/hr Infusion: 02/14/17 10:17 Dose: 25 mls/hr Admin: 02/14/17 06:17 Dose: 25 mls/hr Infusion: 02/14/17 04:13 Dose: 25 mls/hr Admin: 02/14/17 00:13 Dose: 25 mls/hr Infusion: 02/13/17 18:22 Dose: 25 mls/hr Admin: 02/13/17 14:22 Dose: 25 mls/hr Vancomycin HCl 1.75 gm/ Sodium (Chloride) 500 mls @ 333.333 mls/hr IV Q24H [facility] Last Admin: 02/14/17 20:31 Dose: 333.333 mls/hr Infusion: 02/13/17 23:01 Dose: 333.333 mls/hr Admin: 02/13/17 21:30 Dose: 333.333 mls/hr Sodium Chloride (Normal Saline) 1,000 mls @ 150 mls/hr IV ASDIRECTED [facility] Last Admin: 02/15/17 08:56 Dose: 150 mls/hr Infusion: 02/15/17 07:51 Dose: 150 mls/hr Admin: 02/15/17 01:10 Dose: 150 mls/hr Ibuprofen (Motrin) 600 mg PO Q6H PRN PRN Reason: Pain (moderate 4-6) Last Admin: 02/12/17 23:03 Dose: 600 mg Ondansetron HCl (Zofran Odt) 4 mg PO Q6H PRN PRN Reason: nausea, able to take PO Ondansetron HCl (Zofran) 4 mg IV Q6H PRN PRN Reason: Nausea/Vomiting Phenytoin Sodium (Phenytoin) 200 mg PO BID [facility] Last Admin: 02/15/17 08:59 Dose: 200 mg Admin: 02/14/17 20:29 Dose: 200 mg Admin: 02/14/17 09:53 Dose: 200 mg Admin: 02/13/17 21:30 Dose: 200 mg Admin: 02/13/17 08:39 Dose: 200 mg Polyethylene Glycol (Miralax) 17 gm PO DAILY PRN PRN Reason: Constipation Saccharomyces Boulardii (Florastor) 250 mg PO BID [facility] Last Admin: 02/15/17 08:55 Dose: 250 mg Admin: 02/14/17 20:28 Dose: 250 mg Admin: 02/14/17 10:06 Dose: 250 mg Admin: 02/13/17 21:30 Dose: 250 mg Simvastatin (Zocor) 10 mg PO BEDTIME [facility] Last Admin: 02/14/17 20:29 Dose: 10 mg Admin: 02/13/17 21:30 Dose: 10 mg Sodium Chloride (Saline Flush) 10 ml FLUSH ASDIRECTED PRN PRN Reason: Keep Vein Open Last Admin: 02/12/17 15:43 Dose: 10 ml Vancomycin HCl (Pharmacy To Dose - Vancomycin) 1 dose .XX ASDIRECTED [facility] - Assessment Assessment (Free Text/Narrative):: pre-patellar bursitis right knee - Plan Plan (Free Text/Narrative):: 1. The pt is being transferred to [place] in [place] for further care. 2. Continue with IV antibiotic therapy. 3. Overall, improvements noted per Dr. Farias. The pt was evaluated by Dr. Farias today.
[2017-02-15] MEDS: Albuterol/Ipratropium 3.0-0.5 MG/3 ML Neb Soln NEB PRN (13:53)
[2017-02-15] MEDS ORDERED: LORazepam 0.5 MG Tab PO STA (13:58)
[2017-02-15] MEDS ORDERED: LORazepam 0.5 MG Tab PO ONE (14:00)
[2017-02-15] MEDS ORDERED: Vancomycin 1 GM SDV ONE (20:39)
[2017-02-15] MEDS: Simvastatin 10 MG Tab PO SCH (20:52)
[2017-02-15] MEDS: Vancomycin 1.75 GM in Sodium Chloride 0.9% 500 ML IV SCH (21:40)
[2017-02-15] MEDS: Ibuprofen 600 MG Tab PO PRN (23:59)
[2017-02-16] MEDS: Piperacillin/Tazobactam 4.5 GM in Sodium Chloride 0.9% 100 ML IV SCH ×2 (00:12→06:38)
[2017-02-16] MEDS: Sodium Chloride 0.9% 1,000 ML IV SCH ×2 (01:25→09:46)
[2017-02-16] MEDS: Ferrous Sulfate 325 MG Tab PO SCH (06:37)
[2017-02-16] MEDS: Albuterol 0.083% 2.5 MG/3 ML Neb Soln NEB SCH ×4 (06:42→20:32)
[2017-02-16] MEDS: Acetaminophen 325 MG Tab PO SCH ×3 (08:42→22:15)
[2017-02-16] MEDS: Enoxaparin 40 MG/0.4 ML Syringe SUBCUT SCH (08:43)
[2017-02-16] MEDS: guaiFENesin 600 MG Tab.ER PO SCH ×2 (08:43→22:14)
[2017-02-16] MEDS: Saccharomyces Boulardii (Probiotic) 250 MG Cap PO SCH ×2 (08:43→22:14)
[2017-02-16] MEDS: Phenytoin 100 MG Cap.ER PO SCH ×2 (08:44→22:18)
[2017-02-16] MEDS: Famotidine 20 MG Tab PO SCH ×2 (08:44→22:18)
[2017-02-16] MEDS: Benzonatate 100 MG Cap PO SCH ×3 (08:45→22:14)
[2017-02-16] MEDS: Ascorbic Acid 500 MG Tab PO SCH (08:45)
--- NOTE | 2017-02-16 13:05 | PCM.PN ---
- General Info Date of Service: 02/16/17 Functional Status: Reports: Pain Controlled, Tolerating Diet, Ambulating, Urinating - Review of Systems General: Reports: Fever, Weakness, Malaise HEENT: Reports: No Symptoms Pulmonary: Reports: No Symptoms Cardiovascular: Reports: No Symptoms Gastrointestinal: Reports: No Symptoms Genitourinary: Reports: No Symptoms Musculoskeletal: Reports: No Symptoms Skin: Reports: No Symptoms Neurological: Reports: No Symptoms Psychiatric: Reports: No Symptoms - Patient Data Vitals - Most Recent: Last Vital Signs Temp 36.5 C 02/16/17 12:21 Pulse 91 02/16/17 12:21 Resp 19 02/16/17 12:21 BP 122/69 02/16/17 12:21 Pulse Ox 95 02/16/17 12:21 Weight - Most Recent: 103.238 kg I&O - Last 24 Hours: Intake & Output 02/15/17 02/16/17 02/16/17 22:59 06:59 14:59 Intake Total 2610 2600 Output Total 650 550 Balance 1960 0 Lab Results Last 24 Hours: Laboratory Results - last 24 hr 02/15/17 02/16/17 02/16/17 Range/Units 20:35 05:23 05:23 WBC 22.90 H (4.23-9.07) K/mm3 RBC 3.24 L (4.63-6.08) M/mm3 Hgb 10.1 L (13.7-17.5) gm/L Hct 31.0 L (40.1-51.0) % MCV 95.7 H (79.0-92.2) fl MCH 31.2 (25.7-32.2) pg MCHC 32.6 (32.2-35.5) g/dl RDW Std Deviation 52.4 H (35.1-43.9) fL Plt Count 330 (163-337) K/mm3 MPV 10.3 (9.4-12.3) fl Neut % (Auto) 81.6 H (34.0-67.9) % Lymph % (Auto) 6.1 L (21.8-53.1) % [place] % (Auto) 8.5 (5.3-12.2) % Eos % (Auto) 0.7 L (0.8-7.0) Baso % (Auto) 0.2 (0.1-1.2) % Neut # (Auto) 18.69 H (1.78-5.38) K/mm3 Lymph # (Auto) 1.40 (1.32-3.57) K/mm3 [place] # (Auto) 1.94 H (0.30-0.82) K/mm3 Eos # (Auto) 0.17 (0.04-0.54) K/mm3 Baso # (Auto) 0.04 (0.01-0.08) K/mm3 Manual Slide Review Abnormal smear Sodium 143 (136-145) mEq/L Potassium 3.3 L (3.5-5.1) mEq/L Chloride 112 H (98-107) mEq/L Carbon Dioxide 20 L (21-32) mEq/L Anion Gap 14.3 (5-15) BUN 25 H (7-18) mg/dL Creatinine 1.9 H (0.7-1.3) mg/dL Est Cr Clr Drug Dosing 38.95 mL/min Estimated GFR (MDRD) 36 (>60) mL/min BUN/Creatinine Ratio 13.2 L (14-18) Glucose 119 H (80-115) mg/dL Calcium 7.9 L (8.5-10.1) mg/dL Magnesium 1.8 (1.8-2.4) mg/dl C-Reactive Protein 35.8 H* (<1.0) mg/dL Vancomycin Trough 15.4 (10.0-20.0) Joni Results Last 24 Hours: Microbiology 02/15/17 12:35 Aerobic Blood Culture - Preliminary Blood - Venous - Lab Draw NO GROWTH AFTER 1 DAY Anaerobic Blood Culture - Preliminary NO GROWTH AFTER 1 DAY 02/15/17 12:30 Aerobic Blood Culture - Preliminary Blood - Venous NO GROWTH AFTER 1 DAY Anaerobic Blood Culture - Preliminary NO GROWTH AFTER 1 DAY 02/13/17 17:15 Gram Stain - Final Knee, Right Anaerobic Culture - Preliminary Staphylococcus Aureus 02/14/17 17:45 Streptococcus pneumoniae Antigen (M - Final Urine - Unspecified 02/14/17 17:05 Respiratory Virus Panel (PCR) (JONI) - Final Nasopharyngeal Swab Med Orders - Current: Current Medications Acetaminophen (Tylenol) 650 mg PO Q4H PRN PRN Reason: Pain/Fever Last Admin: 02/14/17 16:08 Dose: 650 mg Acetaminophen (Tylenol) 650 mg PO TID PENDING SALE TO [facility] Last Admin: 02/16/17 08:42 Dose: 650 mg Hydrocodone Bitart/Acetaminophen ([place] 325-5 Mg) 1 tab PO Q4H PRN PRN Reason: Pain (moderate 4-6) Last Admin: 02/13/17 13:12 Dose: 1 tab Albuterol (Proventil Neb Soln) 2.5 mg NEB QIDRT PENDING SALE TO [facility] Last Admin: 02/16/17 10:20 Dose: 2.5 mg Albuterol/Ipratropium (Duoneb 3.0-0.5 Mg/3 Ml) 3 ml NEB Q4HRRT PRN PRN Reason: wheezing/SOB/cough Last Admin: 02/15/17 13:53 Dose: 3 ml Ascorbic Acid (Vitamin C) 500 mg PO DAILY PENDING SALE TO [facility] Last Admin: 02/16/17 08:45 Dose: 500 mg Benzonatate (Tessalon Perles) 200 mg PO TID PENDING SALE TO [facility] Last Admin: 02/16/17 08:45 Dose: 200 mg Bisacodyl (Dulcolax) 5 mg PO DAILY PRN PRN Reason: Constipation Docusate Sodium (Colace) 100 mg PO BID PRN PRN Reason: Constipation Enoxaparin Sodium (Lovenox) 40 mg SUBCUT DAILY PENDING SALE TO [facility] Last Admin: 02/16/17 08:43 Dose: 40 mg Famotidine (Pepcid) 20 mg PO BID PENDING SALE TO [facility] Last Admin: 02/16/17 08:44 Dose: 20 mg Ferrous Sulfate (Ferrous Sulfate) 325 mg PO WITHBREAKFAST PENDING SALE TO [facility] Last Admin: 02/16/17 06:37 Dose: 325 mg Guaifenesin (Mucinex) 1,200 mg PO BID PENDING SALE TO [facility] Last Admin: 02/16/17 08:43 Dose: 1,200 mg Guaifenesin/Codeine Phosphate (Robitussin Ac) 5 ml PO Q4H PRN PRN Reason: Cough Last Admin: 02/14/17 20:30 Dose: 5 ml Hydromorphone HCl (Dilaudid) 0.25 mg IVPUSH Q2H PRN PRN Reason: Pain (severe 7-10) Last Admin: 02/15/17 00:58 Dose: 0.25 mg Sodium Chloride (Normal Saline) 1,000 mls @ 150 mls/hr IV ASDIRECTED PENDING SALE TO [facility] Last Admin: 02/16/17 09:46 Dose: 150 mls/hr Clindamycin Phosphate 900 mg/ (Sodium Chloride) 106 mls @ 100 mls/hr IV Q6H PENDING SALE TO [facility] Ibuprofen (Motrin) 600 mg PO Q6H PRN PRN Reason: Pain (moderate 4-6) Last Admin: 02/15/17 23:59 Dose: 600 mg Ondansetron HCl (Zofran Odt) 4 mg PO Q6H PRN PRN Reason: nausea, able to take PO Ondansetron HCl (Zofran) 4 mg IV Q6H PRN PRN Reason: Nausea/Vomiting Phenytoin Sodium (Phenytoin) 200 mg PO BID PENDING SALE TO [facility] Last Admin: 02/16/17 08:44 Dose: 200 mg Polyethylene Glycol (Miralax) 17 gm PO DAILY PRN PRN Reason: Constipation Saccharomyces Boulardii (Florastor) 250 mg PO BID PENDING SALE TO [facility] Last Admin: 02/16/17 08:43 Dose: 250 mg Simvastatin (Zocor) 10 mg PO BEDTIME PENDING SALE TO [facility] Last Admin: 02/15/17 20:52 Dose: 10 mg Sodium Chloride (Saline Flush) 10 ml FLUSH ASDIRECTED PRN PRN Reason: Keep Vein Open Last Admin: 02/12/17 15:43 Dose: 10 ml Vancomycin HCl (Pharmacy To Dose - Vancomycin) 1 dose .XX ASDIRECTED PENDING SALE TO [facility] Discontinued Medications Albuterol/Ipratropium (Duoneb 3.0-0.5 Mg/3 Ml) 3 ml NEB ONETIME ONE Stop: 02/14/17 13:51 Last Admin: 02/14/17 14:33 Dose: 3 ml Albuterol/Ipratropium (Duoneb 3.0-0.5 Mg/3 Ml) Confirm Administered Dose 3 ml .ROUTE .STK-MED ONE Stop: 02/14/17 13:59 Last Admin: 02/14/17 14:38 Dose: Not Given Doxycycline Hyclate (Vibramycin) Confirm Administered Dose 100 mg .ROUTE .STK- MED ONE Stop: 02/12/17 17:55 Last Admin: 02/12/17 18:12 Dose: Not Given Hydromorphone HCl (Dilaudid) 0.5 mg IVPUSH ONETIME ONE Stop: 02/12/17 17:30 Last Admin: 02/12/17 17:40 Dose: 0.5 mg Ceftriaxone Sodium 2 gm/ (Sodium Chloride) 100 mls @ 200 mls/hr IV ONETIME ONE Stop: 02/12/17 16:30 Last Admin: 02/12/17 16:20 Dose: 200 mls/hr Vancomycin HCl 1.5 gm/ Sodium (Chloride) 250 mls @ 250 mls/hr IV ONETIME ONE Stop: 02/12/17 17:03 Last Admin: 02/12/17 18:09 Dose: Not Given Doxycycline Hyclate 100 mg/ (Sodium Chloride) 100 mls @ 100 mls/hr IV ONETIME ONE Stop: 02/12/17 18:22 Last Admin: 02/12/17 18:12 Dose: Not Given Doxycycline Hyclate 100 mg/ (Sodium Chloride) 100 mls @ 100 mls/hr IV ONETIME ONE Stop: 02/12/17 18:55 Last Admin: 02/12/17 18:10 Dose: 100 mls/hr Potassium Chloride/Sodium Chloride (Normal Saline With 20 Meq Kcl) 1,000 mls @ 125 mls/hr IV ASDIRECTED PENDING SALE TO [facility] Last Admin: 02/12/17 19:22 Dose: 125 mls/hr Piperacillin Sod/Tazobactam (Sod 4.5 gm/ Sodium Chloride) 100 mls @ 25 mls/hr IV Q8H PENDING SALE TO [facility] Last Admin: 02/16/17 06:38 Dose: 25 mls/hr Piperacillin Sod/Tazobactam (Sod 4.5 gm/ Sodium Chloride) 100 mls @ 200 mls/hr IV ONETIME ONE Stop: 02/13/17 06:29 Last Admin: 02/13/17 05:25 Dose: 200 mls/hr Vancomycin HCl 1 gm/Vancomycin HCl 250 mg/ Sodium Chloride 250 mls @ 166.667 mls/hr IV Q24H PENDING SALE TO [facility] Last Admin: 02/12/17 22:33 Dose: 166.667 mls/hr Sodium Chloride (Normal Saline) 1,000 mls @ 100 mls/hr IV ASDIRECTED PENDING SALE TO [facility] Stop: 02/14/17 06:59 Last Admin: 02/13/17 20:23 Dose: 100 mls/hr Vancomycin HCl 1.75 gm/ Sodium (Chloride) 500 mls @ 333.333 mls/hr IV Q24H PENDING SALE TO [facility] Last Admin: 02/15/17 21:40 Dose: 333.333 mls/hr Sodium Chloride (Normal Saline) 1,000 mls @ 100 mls/hr IV ASDIRECTED KEV Last Admin: 02/14/17 14:06 Dose: 100 mls/hr Sodium Chloride (Normal Saline) 1,000 mls @ 999 mls/hr IV ASDIRECTED KEV Last Admin: 02/14/17 10:05 Dose: 999 mls/hr Sodium Chloride (Normal Saline) 2,000 mls @ 500 mls/hr IV ASDIRECTED KEV Stop: 02/14/17 20:29 Last Admin: 02/14/17 17:35 Dose: Not Given Sodium Chloride (Normal Saline) 1,000 mls @ 150 mls/hr IV ASDIRECTED KEV Sodium Chloride (Normal Saline) 1,000 mls @ 250 mls/hr IV ASDIRECTED KEV Stop: 02/15/17 01:59 Last Admin: 02/14/17 20:45 Dose: 250 mls/hr Ibuprofen (Motrin) 800 mg PO ONETIME ONE Stop: 02/14/17 22:59 Last Admin: 02/14/17 23:08 Dose: 800 mg Influenza Virus Vaccine (Pharmacy To Dose - Influenza Vaccine) 1 each IM ONETIME ONE Stop: 02/12/17 21:00 Influenza Virus Vaccine (Fluzone High-Dose ) 180 mcg IM .ONCE ONE Stop: 02/13/17 10:01 Ketorolac Tromethamine (Toradol) 30 mg IVPUSH ONETIME ONE Stop: 02/13/17 13:46 Last Admin: 02/13/17 14:23 Dose: 30 mg Lidocaine HCl (Xylocaine 1%) 10 ml INJECT ONETIME ONE Stop: 02/12/17 16:12 Last Admin: 02/12/17 18:12 Dose: Not Given Lorazepam (Ativan) 0.5 mg PO ONETIME ONE Stop: 02/15/17 14:01 Last Admin: 02/15/17 14:03 Dose: 0.5 mg Lorazepam (Ativan) 0.5 mg PO ONETIME STA Stop: 02/15/17 13:59 Last Admin: 02/15/17 15:16 Dose: Not Given Potassium Chloride (Klor-Con M20) 40 meq PO ONETIME ONE Stop: 02/12/17 20:20 Last Admin: 02/12/17 22:29 Dose: 40 meq Potassium Chloride (Potassium Chloride) 40 meq PO ONETIME ONE Stop: 02/13/17 20:21 Last Admin: 02/13/17 21:30 Dose: 40 meq Saccharomyces Boulardii (Florastor) 500 mg PO BID PENDING SALE TO [facility] Last Admin: 02/13/17 08:39 Dose: 500 mg Saccharomyces Boulardii (Florastor) 250 mg PO BID PENDING SALE TO [facility] Last Admin: 02/14/17 21:49 Dose: Not Given Vancomycin HCl (Vancomycin) Confirm Administered Dose 2 gm .ROUTE .STK-MED ONE Stop: 02/15/17 20:40 Last Admin: 02/15/17 21:40 Dose: Not Given - Exam Quality Assessment: DVT Prophylaxis General: Alert, Oriented, Cooperative HEENT: Pupils Equal, Pupils Reactive, EOMI Neck: Supple, Trachea Midline Lungs: Normal Respiratory Effort Cardiovascular: Regular Rate, Regular Rhythm GI/Abdominal Exam: Normal Bowel Sounds, Soft, Non-Tender, No Organomegaly (Male) Exam: Deferred Back Exam: Normal Inspection Extremities: Normal Inspection, Leg Pain, Increased Warmth Skin: Warm, Dry Wound/Incisions: Drainage Neurological: No New Focal Deficit, Normal Speech Psy/Mental Status: Alert, Normal Affect, Normal Mood - Problem List Review Problem List Initiated/Reviewed/Updated: Yes - My Orders Last 24 Hours: My Active Orders 02/16/17 13:00 Clindamycin Phosphate [Cleocin] 900 mg Sodium Chloride 0.9% [Normal Saline] 100 ml IV Q6H - Plan Plan:: I/P Acute: Bacteremia with likely sepsis; febrile last night -2/4 blood cultures positive for gram positive cocci- now with non MRSA staph aureus, see sensitivity for details -Cont on Vanco and zosyn IV for now until confirmation of organism and sensitivity of knee aspirate culture: Staph Aureus, not MRSA -IVF--bolus last night now running at 150, tolerating well -Antipyrectics PRN for fever -VSS -Repeat BC today Cellulitis of right knee -Erythema, redness, and pain to right knee, although no drainage. -Reports falling on and hitting knee on linoleum with concrete underneath; Reports fever, chills, and night sweats since Saturday; Took acetaminophen and NSAIDs for treatment prior to arrival; Was able to walk on extremity, 90 degree flexion with "tightness", full extension -WBC 16.83--17.57-->18.37--> -CRP 41.7-->41.2-->42.7--> -Lactic acid 1.5 initially, recheck 1.1 -Blood cultures obtained-- Bacteremia as noted above -Dr. Farias, orthopedic surgeon, Formal consult placed for Orthopedics -- I&D of knee done yesterday with Dr. Farias- cultures with staph aureus, sensitivity pending. Dressing change daily and PRN. -Knee x-ray essentially unremarkable pending formal radiologist review. -Doxycycline and Rocephin given in ED; switched to Vancomycin and Zosyn inpatient -PRN pain control medications as ordered ? early evolving RML/RLL pneumonia---CXR reported as normal--will cont with aggressive RT treatments. -Coughing, dry and hacky continues, continues to be febrile; CXR obtained- as above -Vanco/Zosyn as above -RT, scheduled nebs, IS/FV -Mucinex, tessalon perles and cough suppressant -Pepcid BID to cover possibility of aspiration -[employer] TECHNICIAN for swallow eval as cough is with choking like sound at times; per nursing swallows pills and food without any difficulty thus far. Hypokalemia--resolved -Will monitor and supplement as necessary -Normal mag- follow mag levels also Anemia -Hgb 13.2 -Hct 39.0 -Will order iron studies, B12, and Folic acid---Iron studies with iron level low at 14 -Start ferrous sulfate -Occult stool ordered--Negative -Follow-up with PCP for repeat labs after discharge in one month Renal insufficiency--stable -Unknown what baseline is -BUN 23--22-->30 -Creatinine 1.5-->1.5-->1.9 -eGFR 47 -IV fluids --- increase rate to 250cc/hr x 2L then rate to 150cc/hr -Monitor Chronic: Seizure disorder - Home Dilantin dose HLD Depression- cont home meds Hx/o brain neoplasm Short-term memory impairment Plan: Rpeat CXR 2 V, 02/17/17. Start Clindamycin 900 mg Q 6 hours; stop Zosyn/Levoquin. Patient significantly improved from yesterday; starting to turn around and expected good results at this time. CM/SW for discharge planning--[facility] not [facility] at [facility]. If no beds open up- will expect DC in next 3-4 days. PT/OT [employer] TECHNICIAN for swallow eval and also cog eval as patient seems to be intermittently confused--acute due to infection vs chronic?? GI prophylaxis: Pepcid DVT prophylaxis: KARLI Hose and Lovenox Routine AM labs Transfer to [place] 24-48 hours. Code status: Full code. PCP is Dr. Ibrahim with the [facility] here in [place]. LOS>96 hours, adjustment of IV ATB based on C/S.
[2017-02-16] MEDS ORDERED: Furosemide 20 MG/2 ML VIAL IVPUSH ONE (13:17)
[2017-02-16] MEDS ORDERED: traMADol 50 MG Tab PO PRN (13:18)
[2017-02-16] MEDS ORDERED: Sodium Chloride 0.9% 10 ML Syringe FLUSH PRN (13:24)
[2017-02-16] MEDS: Clindamycin Phosphate 900 MG in Sodium Chloride 0.9% 100 ML IV SCH ×2 (13:33→18:05)
[2017-02-16] MEDS: Potassium Chloride 10% 20 MEQ/15 ML Soln 30 ML UD Cup PO SCH (13:37)
[2017-02-16] MEDS: Codeine/guaiFENesin 100-10 MG/5 ML Syrup 5 ML Cup PO PRN (14:14)
[2017-02-16] MEDS: Simvastatin 10 MG Tab PO SCH (22:18)
[2017-02-17] MEDS: Acetaminophen/HYDROcodone 325-5 MG Tab PO PRN (00:22)
[2017-02-17] MEDS: Clindamycin Phosphate 900 MG in Sodium Chloride 0.9% 100 ML IV SCH ×4 (00:41→18:00)
[2017-02-17] MEDS: Albuterol 0.083% 2.5 MG/3 ML Neb Soln NEB SCH ×3 (06:21→15:19)
[2017-02-17] MEDS: Ferrous Sulfate 325 MG Tab PO SCH (06:37)
[2017-02-17] MEDS: Phenytoin 100 MG Cap.ER PO SCH (09:25)
[2017-02-17] MEDS: Potassium Chloride 10% 20 MEQ/15 ML Soln 30 ML UD Cup PO SCH (09:25)
[2017-02-17] MEDS: Saccharomyces Boulardii (Probiotic) 250 MG Cap PO SCH (09:25)
[2017-02-17] MEDS: Ascorbic Acid 500 MG Tab PO SCH (09:25)
[2017-02-17] MEDS: guaiFENesin 600 MG Tab.ER PO SCH (09:25)
[2017-02-17] MEDS: Benzonatate 100 MG Cap PO SCH ×3 (09:26→14:46)
[2017-02-17] MEDS: Famotidine 20 MG Tab PO SCH (09:26)
[2017-02-17] MEDS: Acetaminophen 325 MG Tab PO SCH ×3 (09:26→14:45)
[2017-02-17] MEDS: Enoxaparin 40 MG/0.4 ML Syringe SUBCUT SCH (09:27)
--- NOTE | 2017-02-17 13:20 | PCM.PN ---
- General Info Date of Service: 02/17/17 Functional Status: Reports: Pain Controlled, Other (had Fever and chills) - Review of Systems General: Reports: Fever HEENT: Reports: No Symptoms Pulmonary: Reports: Shortness of Breath, Cough Cardiovascular: Reports: No Symptoms Gastrointestinal: Reports: No Symptoms Genitourinary: Reports: No Symptoms Musculoskeletal: Reports: Joint Swelling Neurological: Reports: No Symptoms Psychiatric: Reports: No Symptoms - Patient Data Vitals - Most Recent: Last Vital Signs Temp 99.1 F 02/17/17 11:20 Pulse 97 02/17/17 11:20 Resp 19 02/17/17 11:20 BP 132/63 02/17/17 11:20 Pulse Ox 92 L 02/17/17 11:20 Weight - Most Recent: 226 lb 12.8 oz I&O - Last 24 Hours: Intake & Output 02/16/17 02/17/17 02/17/17 22:59 06:59 14:59 Intake Total 1950 900 Output Total 1000 350 Balance 950 550 Joni Results Last 24 Hours: Microbiology 02/15/17 12:35 Aerobic Blood Culture - Preliminary Blood - Venous - Lab Draw NO GROWTH AFTER 2 DAYS Anaerobic Blood Culture - Preliminary NO GROWTH AFTER 2 DAYS 02/15/17 12:30 Aerobic Blood Culture - Preliminary Blood - Venous NO GROWTH AFTER 2 DAYS Anaerobic Blood Culture - Preliminary NO GROWTH AFTER 2 DAYS 02/13/17 17:15 Gram Stain - Final Knee, Right Anaerobic Culture - Preliminary Staphylococcus Aureus Anaerobic Gram Positive Cocci 02/14/17 17:45 Streptococcus pneumoniae Antigen (M - Final Urine - Unspecified Med Orders - Current: Current Medications Acetaminophen (Tylenol) 650 mg PO Q4H PRN PRN Reason: Pain/Fever Last Admin: 02/14/17 16:08 Dose: 650 mg Acetaminophen (Tylenol) 650 mg PO TID [facility] Last Admin: 02/17/17 09:26 Dose: 650 mg Hydrocodone Bitart/Acetaminophen ([place] 325-5 Mg) 1 tab PO Q4H PRN PRN Reason: Pain (moderate 4-6) Last Admin: 02/17/17 00:22 Dose: 1 tab Albuterol (Proventil Neb Soln) 2.5 mg NEB QIDRT [facility] Last Admin: 02/17/17 09:19 Dose: 2.5 mg Albuterol/Ipratropium (Duoneb 3.0-0.5 Mg/3 Ml) 3 ml NEB Q4HRRT PRN PRN Reason: wheezing/SOB/cough Last Admin: 02/15/17 13:53 Dose: 3 ml Ascorbic Acid (Vitamin C) 500 mg PO DAILY [facility] Last Admin: 02/17/17 09:25 Dose: 500 mg Benzonatate (Tessalon Perles) 200 mg PO TID [facility] Last Admin: 02/17/17 09:26 Dose: 200 mg Bisacodyl (Dulcolax) 5 mg PO DAILY PRN PRN Reason: Constipation Docusate Sodium (Colace) 100 mg PO BID PRN PRN Reason: Constipation Enoxaparin Sodium (Lovenox) 40 mg SUBCUT DAILY [facility] Last Admin: 02/17/17 09:27 Dose: 40 mg Famotidine (Pepcid) 20 mg PO BID [facility] Last Admin: 02/17/17 09:26 Dose: 20 mg Ferrous Sulfate (Ferrous Sulfate) 325 mg PO WITHBREAKFAST [facility] Last Admin: 02/17/17 06:37 Dose: 325 mg Guaifenesin (Mucinex) 1,200 mg PO BID [facility] Last Admin: 02/17/17 09:25 Dose: 1,200 mg Guaifenesin/Codeine Phosphate (Robitussin Ac) 5 ml PO Q4H PRN PRN Reason: Cough Last Admin: 02/16/17 14:14 Dose: 5 ml Hydromorphone HCl (Dilaudid) 0.25 mg IVPUSH Q2H PRN PRN Reason: Pain (severe 7-10) Last Admin: 02/15/17 00:58 Dose: 0.25 mg Clindamycin Phosphate 900 mg/ (Sodium Chloride) 106 mls @ 100 mls/hr IV Q6H [facility] Last Admin: 02/17/17 06:37 Dose: 100 mls/hr Ondansetron HCl (Zofran Odt) 4 mg PO Q6H PRN PRN Reason: nausea, able to take PO Ondansetron HCl (Zofran) 4 mg IV Q6H PRN PRN Reason: Nausea/Vomiting Phenytoin Sodium (Phenytoin) 200 mg PO BID [facility] Last Admin: 02/17/17 09:25 Dose: 200 mg Polyethylene Glycol (Miralax) 17 gm PO DAILY PRN PRN Reason: Constipation Potassium Chloride (Potassium Chloride) 40 meq PO DAILY [facility] Stop: 02/18/17 09:01 Last Admin: 02/17/17 09:25 Dose: 40 meq Saccharomyces Boulardii (Florastor) 250 mg PO BID [facility] Last Admin: 02/17/17 09:25 Dose: 250 mg Simvastatin (Zocor) 10 mg PO BEDTIME [facility] Last Admin: 02/16/17 22:18 Dose: 10 mg Sodium Chloride (Saline Flush) 10 ml FLUSH ASDIRECTED PRN PRN Reason: Keep Vein Open Last Admin: 02/12/17 15:43 Dose: 10 ml Sodium Chloride (Saline Flush) 10 ml FLUSH ASDIRECTED PRN PRN Reason: Keep Vein Open Tramadol HCl (Ultram) 50 mg PO Q6H PRN PRN Reason: Pain Last Admin: 02/16/17 14:12 Dose: 50 mg Discontinued Medications Albuterol/Ipratropium (Duoneb 3.0-0.5 Mg/3 Ml) 3 ml NEB ONETIME ONE Stop: 02/14/17 13:51 Last Admin: 02/14/17 14:33 Dose: 3 ml Albuterol/Ipratropium (Duoneb 3.0-0.5 Mg/3 Ml) Confirm Administered Dose 3 ml .ROUTE .STK-MED ONE Stop: 02/14/17 13:59 Last Admin: 02/14/17 14:38 Dose: Not Given Doxycycline Hyclate (Vibramycin) Confirm Administered Dose 100 mg .ROUTE .STK- MED ONE Stop: 02/12/17 17:55 Last Admin: 02/12/17 18:12 Dose: Not Given Furosemide (Lasix) 20 mg IVPUSH NOW ONE Stop: 02/16/17 13:18 Last Admin: 02/16/17 13:35 Dose: 20 mg Hydromorphone HCl (Dilaudid) 0.5 mg IVPUSH ONETIME ONE Stop: 02/12/17 17:30 Last Admin: 02/12/17 17:40 Dose: 0.5 mg Ceftriaxone Sodium 2 gm/ (Sodium Chloride) 100 mls @ 200 mls/hr IV ONETIME ONE Stop: 02/12/17 16:30 Last Admin: 02/12/17 16:20 Dose: 200 mls/hr Vancomycin HCl 1.5 gm/ Sodium (Chloride) 250 mls @ 250 mls/hr IV ONETIME ONE Stop: 02/12/17 17:03 Last Admin: 02/12/17 18:09 Dose: Not Given Doxycycline Hyclate 100 mg/ (Sodium Chloride) 100 mls @ 100 mls/hr IV ONETIME ONE Stop: 02/12/17 18:22 Last Admin: 02/12/17 18:12 Dose: Not Given Doxycycline Hyclate 100 mg/ (Sodium Chloride) 100 mls @ 100 mls/hr IV ONETIME ONE Stop: 02/12/17 18:55 Last Admin: 02/12/17 18:10 Dose: 100 mls/hr Potassium Chloride/Sodium Chloride (Normal Saline With 20 Meq Kcl) 1,000 mls @ 125 mls/hr IV ASDIRECTED [facility] Last Admin: 02/12/17 19:22 Dose: 125 mls/hr Piperacillin Sod/Tazobactam (Sod 4.5 gm/ Sodium Chloride) 100 mls @ 25 mls/hr IV Q8H [facility] Last Admin: 02/16/17 06:38 Dose: 25 mls/hr Piperacillin Sod/Tazobactam (Sod 4.5 gm/ Sodium Chloride) 100 mls @ 200 mls/hr IV ONETIME ONE Stop: 02/13/17 06:29 Last Admin: 02/13/17 05:25 Dose: 200 mls/hr Vancomycin HCl 1 gm/Vancomycin HCl 250 mg/ Sodium Chloride 250 mls @ 166.667 mls/hr IV Q24H [facility] Last Admin: 02/12/17 22:33 Dose: 166.667 mls/hr Sodium Chloride (Normal Saline) 1,000 mls @ 100 mls/hr IV ASDIRECTED [facility] Stop: 02/14/17 06:59 Last Admin: 02/13/17 20:23 Dose: 100 mls/hr Vancomycin HCl 1.75 gm/ Sodium (Chloride) 500 mls @ 333.333 mls/hr IV Q24H [facility] Last Admin: 02/15/17 21:40 Dose: 333.333 mls/hr Sodium Chloride (Normal Saline) 1,000 mls @ 100 mls/hr IV ASDIRECTED [facility] Last Admin: 02/14/17 14:06 Dose: 100 mls/hr Sodium Chloride (Normal Saline) 1,000 mls @ 999 mls/hr IV ASDIRECTED [facility] Last Admin: 02/14/17 10:05 Dose: 999 mls/hr Sodium Chloride (Normal Saline) 2,000 mls @ 500 mls/hr IV ASDIRECTED [facility] Stop: 02/14/17 20:29 Last Admin: 02/14/17 17:35 Dose: Not Given Sodium Chloride (Normal Saline) 1,000 mls @ 150 mls/hr IV ASDIRECTED [facility] Sodium Chloride (Normal Saline) 1,000 mls @ 250 mls/hr IV ASDIRECTED [facility] Stop: 02/15/17 01:59 Last Admin: 02/14/17 20:45 Dose: 250 mls/hr Sodium Chloride (Normal Saline) 1,000 mls @ 150 mls/hr IV ASDIRECTED [facility] Last Admin: 02/16/17 09:46 Dose: 150 mls/hr Ibuprofen (Motrin) 600 mg PO Q6H PRN PRN Reason: Pain (moderate 4-6) Last Admin: 02/15/17 23:59 Dose: 600 mg Ibuprofen (Motrin) 800 mg PO ONETIME ONE Stop: 02/14/17 22:59 Last Admin: 02/14/17 23:08 Dose: 800 mg Influenza Virus Vaccine (Pharmacy To Dose - Influenza Vaccine) 1 each IM ONETIME ONE Stop: 02/12/17 21:00 Influenza Virus Vaccine (Fluzone High-Dose ) 180 mcg IM .ONCE ONE Stop: 02/13/17 10:01 Ketorolac Tromethamine (Toradol) 30 mg IVPUSH ONETIME ONE Stop: 02/13/17 13:46 Last Admin: 02/13/17 14:23 Dose: 30 mg Lidocaine HCl (Xylocaine 1%) 10 ml INJECT ONETIME ONE Stop: 02/12/17 16:12 Last Admin: 02/12/17 18:12 Dose: Not Given Lorazepam (Ativan) 0.5 mg PO ONETIME ONE Stop: 02/15/17 14:01 Last Admin: 02/15/17 14:03 Dose: 0.5 mg Lorazepam (Ativan) 0.5 mg PO ONETIME STA Stop: 02/15/17 13:59 Last Admin: 02/15/17 15:16 Dose: Not Given Potassium Chloride (Klor-Con M20) 40 meq PO ONETIME ONE Stop: 02/12/17 20:20 Last Admin: 02/12/17 22:29 Dose: 40 meq Potassium Chloride (Potassium Chloride) 40 meq PO ONETIME ONE Stop: 02/13/17 20:21 Last Admin: 02/13/17 21:30 Dose: 40 meq Saccharomyces Boulardii (Florastor) 500 mg PO BID [facility] Last Admin: 02/13/17 08:39 Dose: 500 mg Saccharomyces Boulardii (Florastor) 250 mg PO BID [facility] Last Admin: 02/14/17 21:49 Dose: Not Given Vancomycin HCl (Pharmacy To Dose - Vancomycin) 1 dose .XX ASDIRECTED [facility] Vancomycin HCl (Vancomycin) Confirm Administered Dose 2 gm .ROUTE .STK-MED ONE Stop: 02/15/17 20:40 Last Admin: 02/15/17 21:40 Dose: Not Given - Exam General: Alert, Oriented, Mild Distress HEENT: Pupils Equal, Pupils Reactive, EOMI, Mucous Membr. Moist/[place] Neck: Supple Lungs: Clear to Auscultation, Normal Respiratory Effort Cardiovascular: Regular Rate, Regular Rhythm GI/Abdominal Exam: Normal Bowel Sounds, Soft, Non-Tender, No Organomegaly, No Distention, No Abnormal Bruit, No Mass, Pelvis Stable Extremities: Normal Inspection, Normal Range of Motion, Non-Tender, No Pedal Edema, Normal Capillary Refill, Joint Swelling (right knee and erythema) Skin: Warm, Other (right knee redness and superficial pus) Wound/Incisions: Healing Well Neurological: No New Focal Deficit Psy/Mental Status: Alert, Normal Affect, Normal Mood - Problem List Review Problem List Initiated/Reviewed/Updated: Yes - My Orders Last 24 Hours: My Active Orders 02/17/17 12:14 CULTURE BLOOD [BC] Stat CULTURE BLOOD [BC] Stat Blood Culture x2 Reflex Set [OM.PC] Stat 02/18/17 05:11 BMP [BASIC METABOLIC PANEL,BMP] [CHEM] AM CBC WITH AUTO DIFF [HEME] AM MAGNESIUM [CHEM] AM 02/18/17 12:13 Echo Comp wo Cont [US] Routine 02/19/17 05:11 BMP [BASIC METABOLIC PANEL,BMP] [CHEM] AM CBC WITH AUTO DIFF [HEME] AM MAGNESIUM [CHEM] AM 02/20/17 05:11 BMP [BASIC METABOLIC PANEL,BMP] [CHEM] AM CBC WITH AUTO DIFF [HEME] AM MAGNESIUM [CHEM] AM 02/21/17 05:11 BMP [BASIC METABOLIC PANEL,BMP] [CHEM] AM CBC WITH AUTO DIFF [HEME] AM MAGNESIUM [CHEM] AM 02/22/17 05:11 CBC WITH AUTO DIFF [HEME] AM - Plan Plan:: I/P Acute: Bacteremia with likely sepsis; febrile -2/4 blood cultures positive for gram positive cocci- now with MSSA staph aureus, see sensitivity for details -was on Vanco and zosyn IV for now until confirmation of organism and sensitivity of knee aspirate culture: Staph Aureus, then yesterday was switched to clindamycin -IVF--bolus last night now running at 150, tolerating well -Antipyrectics PRN for fever -VSS -Repeat BC today Cellulitis of right knee -Erythema, redness, and pain to right knee, although no drainage. -Reports falling on and hitting knee on linoleum with concrete underneath; Reports fever, chills, and night sweats since Saturday; Took acetaminophen and NSAIDs for treatment prior to arrival; Was able to walk on extremity, 90 degree flexion with "tightness", full extension -WBC 16.83--17.57-->18.37--> -CRP 41.7-->41.2-->42.7--> -Lactic acid 1.5 initially, recheck 1.1 -Blood cultures obtained-- Bacteremia as noted above -Dr. Farias, orthopedic surgeon, Formal consult placed for Orthopedics -- I&D of knee done yesterday with Dr. Farias- cultures with staph aureus, sensitivity pending. Dressing change daily and PRN. -Knee x-ray essentially unremarkable pending formal radiologist review. -Doxycycline and Rocephin given in ED; switched to Vancomycin and Zosyn inpatient, then switched to clindamycin -PRN pain control medications as ordered ? early evolving RML/RLL pneumonia---CXR reported as normal--will cont with aggressive RT treatments. -Coughing, dry and hacky continues, continues to be febrile; CXR obtained- as above -Vanco/Zosyn as above -RT, scheduled nebs, IS/FV -Mucinex, tessalon perles and cough suppressant -Pepcid BID to cover possibility of aspiration -[employer] for swallow eval -->passed. Hypokalemia--resolved -Will monitor and supplement as necessary -Normal mag- follow mag levels also Renal insufficiency--stable -Unknown what baseline is -BUN 23--22-->30 -Creatinine 1.5-->1.5-->1.9 -eGFR 47 -IV fluids --- increase rate to 250cc/hr x 2L then rate to 150cc/hr -Monitor Chronic: Seizure disorder - Home Dilantin dose HLD Depression- cont home meds Hx/o brain neoplasm Short-term memory impairment Plan: CXR report today pending. on Clindamycin 900 mg Q 6 hours #2. Patient significantly improved from yesterday; starting to turn around and expected good results at this time. Need transfer to [place] or place with ID consult DVT prophylaxis: KARLI Goetz and Abram Routine AM labs Transfer to [facility] 24-48 hours. Code status: Full code. PCP is Dr. Ibrahim with [facility] here in [place]. LOS>96 hours, adjustment of IV ATB based on C/S.
--- NOTE | 2017-02-17 16:38 | PCM.DCSUM1 ---
Discharge Summary - Hospital Course Brief History: Cortez Nolen is a 66 yo male who presented to our ED today after being seen at the [facility] for a possible right knee infection. Patient reports he fell on Thanksgiving onto linoleum was concrete underneath. Since then he has noticed increasing swelling, redness, and warmth to the knee. He reports on Saturday he did have some fever and chills, however he denies any nausea or vomiting. He is walking on the leg. He reports tightness to the knee. He has been taking NSAIDs and acetaminophen to try to manage this at home. In the ED he was afebrile with a temp of 36.5C. Pulse was 91. Respirations 16. Blood pressure 131/62. Pulse ox 90%. Labs are obtained: FVC is significantly elevated at 16.3. Hemoglobin is low at 13.2. Hematocrit low at 39.0. He is macrocytic. Platelets are normal at 214,000. Neutrophils are elevated at 88%. There is no bandemia. Sodium was good at 141. Potassium low at 3.0. This is being supplemented in the ED. Chloride is 103. Carbon dioxide 28. Anion gap 13.0. BUN is elevated at 23. Creatinine is high at 1.5. EGFR is 47. Glucose is 165. Lactic acid 1.5. Calcium 8.7. Liver enzymes looked good with AST at 23 ALT at 27 and alkaline phosphatase at 99. His CRP is very elevated at 41.7. Albumin was low at 3.0. He was given normal saline at 125 mils an hour. Doxycycline and ceftriaxone were given via IV. He is given Dilaudid 0.5 mg for pain. It is reported there were going to try to tap the knee, however patient was moving it and walking, suggesting more celulitis over septic arthritis. Dr. Farias, orthopedic surgeon, was contacted by ED provider and given current signs and symptoms he does not believe the joint has septic arthritis. Blood cultures were ordered. A 4 view x-ray of the knee was obtained and is pending formal radiologist review. Twelve-lead EKG shows sinus tachycardia with PVCs. There is borderline short MA interval and borderline left axis deviation. Borderline T-wave abnormalities are also noticed with T-wave inversion in III and aVF. T-wave flattening is noted in II , V1, V3, V4, V5, V6. He reports a history of HLD, seizure "many years ago", depression, impaired short-term memory and a brain tumor which was surgically resected. He is somewhat of a poor historian. Reports being a former smoker. He denies alcohol or drug use. - Discharge Data Discharge Date: 02/17/17 Discharge Disposition: DC/Tfer to [facility] 02 Condition: Fair - Discharge Diagnosis/Problem(s) (1) Bacteremia SNOMED Code(s): 0759761 ICD Code: R78.81 - BACTEREMIA Status: Acute Priority: High (2) Cellulitis of knee, right SNOMED Code(s): 78545082 ICD Code: L03.115 - CELLULITIS OF RIGHT LOWER LIMB Status: Acute Priority : High (3) Renal insufficiency SNOMED Code(s): 325162675 ICD Code: N28.9 - DISORDER OF KIDNEY AND URETER, UNSPECIFIED Status: Chronic Priority: Medium (4) Hypokalemia SNOMED Code(s): 22530366 ICD Code: E87.6 - HYPOKALEMIA Status: Resolved Priority: High - Patient Summary/Data Consults: Consultations 02/14/17 16:21 PROGRAMMER Eval and Treat [PROGRAMMER Evaluation and Treatment] [CONS] Routine 02/14/17 19:47 PROGRAMMER Eval and Treat [PROGRAMMER Evaluation and Treatment] [CONS] Routine Hospital Course: Bacteremia with likely sepsis; febrile -2/4 blood cultures positive for gram positive cocci- now with MSSA staph aureus, see sensitivity for details -was on Vanco and zosyn IV for now until confirmation of organism and sensitivity of knee aspirate culture: Staph Aureus, then yesterday was switched to clindamycin -IVF--bolus last night now running at 150, tolerating well -Antipyrectics PRN for fever -VSS -Repeat BC today Cellulitis of right knee -Erythema, redness, and pain to right knee, although no drainage. -Reports falling on and hitting knee on linoleum with concrete underneath; Reports fever, chills, and night sweats since Saturday; Took acetaminophen and NSAIDs for treatment prior to arrival; Was able to walk on extremity, 90 degree flexion with "tightness", full extension -WBC 16.83--17.57-->18.37--> -CRP 41.7-->41.2-->42.7--> -Lactic acid 1.5 initially, recheck 1.1 -Blood cultures obtained-- Bacteremia as noted above -Dr. Farias, orthopedic surgeon, Formal consult placed for Orthopedics -- I&D of knee done yesterday with Dr. Farias- cultures with staph aureus, sensitivity pending. Dressing change daily and PRN. -Knee x-ray essentially unremarkable pending formal radiologist review. -Doxycycline and Rocephin given in ED; switched to Vancomycin and Zosyn inpatient, then switched to clindamycin -PRN pain control medications as ordered ? early evolving RML/RLL pneumonia---CXR reported as normal--will cont with aggressive RT treatments. -Coughing, dry and hacky continues, continues to be febrile; CXR obtained- as above -Vanco/Zosyn as above -RT, scheduled nebs, IS/FV -Mucinex, tessalon perles and cough suppressant -Pepcid BID to cover possibility of aspiration -PROGRAMMER for swallow eval -->passed. Hypokalemia--resolved -Will monitor and supplement as necessary -Normal mag- follow mag levels also Renal insufficiency--stable -Unknown what baseline is -BUN 23--22-->30 -Creatinine 1.5-->1.5-->1.9 -eGFR 47 -IV fluids --- increase rate to 250cc/hr x 2L then rate to 150cc/hr -Monitor Chronic: Seizure disorder - Home Dilantin dose HLD Depression- cont home meds Hx/o brain neoplasm Short-term memory impairment Plan: CXR report today pending. on Clindamycin 900 mg Q 6 hours #2. Patient significantly improved from yesterday; starting to turn around and expected good results at this time. Need transfer to [facility] or place with ID consult DVT prophylaxis: KARLI Hose and Lovenox Routine AM labs pt will be Transfer to [place] in [place] accepting MD is Dr Arredondo Code status: Full code. PCP is Dr. Ibrahim with the [facility] here in [place]. - Patient Instructions Diet: Heart Healthy Diet Activity: Bedrest - Discharge Plan Home Medications: Home Meds Ascorbic Acid 500 mg PO DAILY 02/12/17 [History] Multivitamin with Minerals [One Daily Plus Minerals] 1 tab PO DAILY 02/12/17 [ History] Phenytoin Sodium Extended [Dilantin] 200 mg PO BID 02/12/17 [History] atorvaSTATin [Lipitor] 10 mg PO BEDTIME 02/12/17 [History] Acetaminophen [Tylenol] 650 mg PO Q4H PRN tablet 02/15/17 [Rx] Acetaminophen [Tylenol] 650 mg PO TID tablet 02/15/17 [Rx] Albuterol [IJD: Albuterol] 2.5 mg NEB QIDRT #0 nebule 02/15/17 [Rx] Albuterol/Ipratropium [DuoNeb 3.0-0.5 MG/3 ML] 3 ml NEB Q4HRRT PRN neb [Rx] Benzonatate [Tessalon Perles] 200 mg PO TID cap 02/15/17 [Rx] Bisacodyl [Dulcolax] 5 mg PO DAILY PRN tablet 02/15/17 [Rx] Codeine/guaiFENesin [Robitussin AC] 5 ml PO Q4H PRN cup 02/15/17 [Rx] Docusate Sodium [Colace] 100 mg PO BID PRN cap 02/15/17 [Rx] Enoxaparin [Lovenox] 40 mg SUBCUT DAILY syringe 02/15/17 [Rx] Famotidine [Pepcid] 20 mg PO BID tablet 02/15/17 [Rx] Ferrous Sulfate 325 mg PO WITHBREAKFAST tablet 02/15/17 [Rx] Ibuprofen [IJD: Ibuprofen] 600 mg PO Q6H PRN tablet 02/15/17 [Rx] Ondansetron [Zofran ODT] 4 mg PO Q6H PRN tab.dis 02/15/17 [Rx] Piperacillin/Tazobactam [Zosyn] 4.5 gm IV Q8H vial 02/15/17 [Rx] Vancomycin 1.75 gm IV Q24H sdv 02/15/17 [Rx] Vancomycin Pharmacy to Dose [Pharmacy to Dose - Vancomycin] 1 dose .XX ASDIRECTED each 02/15/17 [Rx] guaiFENesin [Mucinex] 1,200 mg PO BID tab.er 02/15/17 [Rx] Patient Handouts: Cellulitis, Adult, [id number] Forms: ED Department Discharge Referrals: Annie Ibrahim DO [Primary Care Provider] - - Discharge Summary/Plan Comment DC Time >30 min.: Yes - Patient Data Vitals - Most Recent: Last Vital Signs Temp 99.1 F 02/17/17 11:20 Pulse 97 02/17/17 11:20 Resp 19 02/17/17 11:20 BP 132/63 02/17/17 11:20 Pulse Ox 93 L 02/17/17 15:20 Weight - Most Recent: 226 lb 12.8 oz I&O - Last 24 hours: Intake & Output 02/17/17 02/17/17 02/17/17 06:59 14:59 22:59 Intake Total 900 180 Output Total 350 Balance 550 180 MILLER Results - Last 24 hrs: Microbiology 02/13/17 17:15 Gram Stain - Final Knee, Right Anaerobic Culture - Preliminary Staphylococcus Aureus Peptostreptococcus Species 02/15/17 12:35 Aerobic Blood Culture - Preliminary Blood - Venous - Lab Draw NO GROWTH AFTER 2 DAYS Anaerobic Blood Culture - Preliminary NO GROWTH AFTER 2 DAYS 02/15/17 12:30 Aerobic Blood Culture - Preliminary Blood - Venous NO GROWTH AFTER 2 DAYS Anaerobic Blood Culture - Preliminary NO GROWTH AFTER 2 DAYS Med Orders - Current: Current Medications Acetaminophen (Tylenol) 650 mg PO Q4H PRN PRN Reason: Pain/Fever Last Admin: 02/14/17 16:08 Dose: 650 mg Acetaminophen (Tylenol) 650 mg PO TID [facility] Last Admin: 02/17/17 14:45 Dose: Not Given Hydrocodone Bitart/Acetaminophen ([place] 325-5 Mg) 1 tab PO Q4H PRN PRN Reason: Pain (moderate 4-6) Last Admin: 02/17/17 00:22 Dose: 1 tab Albuterol (Proventil Neb Soln) 2.5 mg NEB QIDRT [facility] Last Admin: 02/17/17 15:19 Dose: 2.5 mg Albuterol/Ipratropium (Duoneb 3.0-0.5 Mg/3 Ml) 3 ml NEB Q4HRRT PRN PRN Reason: wheezing/SOB/cough Last Admin: 02/15/17 13:53 Dose: 3 ml Ascorbic Acid (Vitamin C) 500 mg PO DAILY [facility] Last Admin: 02/17/17 09:25 Dose: 500 mg Benzonatate (Tessalon Perles) 200 mg PO TID [facility] Last Admin: 02/17/17 14:46 Dose: Not Given Bisacodyl (Dulcolax) 5 mg PO DAILY PRN PRN Reason: Constipation Docusate Sodium (Colace) 100 mg PO BID PRN PRN Reason: Constipation Enoxaparin Sodium (Lovenox) 40 mg SUBCUT DAILY [facility] Last Admin: 02/17/17 09:27 Dose: 40 mg Famotidine (Pepcid) 20 mg PO BID [facility] Last Admin: 02/17/17 09:26 Dose: 20 mg Ferrous Sulfate (Ferrous Sulfate) 325 mg PO WITHBREAKFAST [facility] Last Admin: 02/17/17 06:37 Dose: 325 mg Guaifenesin (Mucinex) 1,200 mg PO BID [facility] Last Admin: 02/17/17 09:25 Dose: 1,200 mg Guaifenesin/Codeine Phosphate (Robitussin Ac) 5 ml PO Q4H PRN PRN Reason: Cough Last Admin: 02/16/17 14:14 Dose: 5 ml Hydromorphone HCl (Dilaudid) 0.25 mg IVPUSH Q2H PRN PRN Reason: Pain (severe 7-10) Last Admin: 02/15/17 00:58 Dose: 0.25 mg Clindamycin Phosphate 900 mg/ (Sodium Chloride) 106 mls @ 100 mls/hr IV Q6H [facility] Last Admin: 02/17/17 13:50 Dose: 100 mls/hr Ondansetron HCl (Zofran Odt) 4 mg PO Q6H PRN PRN Reason: nausea, able to take PO Ondansetron HCl (Zofran) 4 mg IV Q6H PRN PRN Reason: Nausea/Vomiting Phenytoin Sodium (Phenytoin) 200 mg PO BID [facility] Last Admin: 02/17/17 09:25 Dose: 200 mg Polyethylene Glycol (Miralax) 17 gm PO DAILY PRN PRN Reason: Constipation Potassium Chloride (Potassium Chloride) 40 meq PO DAILY [facility] Stop: 02/18/17 09:01 Last Admin: 02/17/17 09:25 Dose: 40 meq Saccharomyces Boulardii (Florastor) 250 mg PO BID [facility] Last Admin: 02/17/17 09:25 Dose: 250 mg Simvastatin (Zocor) 10 mg PO BEDTIME [facility] Last Admin: 02/16/17 22:18 Dose: 10 mg Sodium Chloride (Saline Flush) 10 ml FLUSH ASDIRECTED PRN PRN Reason: Keep Vein Open Last Admin: 02/12/17 15:43 Dose: 10 ml Sodium Chloride (Saline Flush) 10 ml FLUSH ASDIRECTED PRN PRN Reason: Keep Vein Open Tramadol HCl (Ultram) 50 mg PO Q6H PRN PRN Reason: Pain Last Admin: 02/16/17 14:12 Dose: 50 mg Discontinued Medications Albuterol/Ipratropium (Duoneb 3.0-0.5 Mg/3 Ml) 3 ml NEB ONETIME ONE Stop: 02/14/17 13:51 Last Admin: 02/14/17 14:33 Dose: 3 ml Albuterol/Ipratropium (Duoneb 3.0-0.5 Mg/3 Ml) Confirm Administered Dose 3 ml .ROUTE .STK-MED ONE Stop: 02/14/17 13:59 Last Admin: 02/14/17 14:38 Dose: Not Given Doxycycline Hyclate (Vibramycin) Confirm Administered Dose 100 mg .ROUTE .STK- MED ONE Stop: 02/12/17 17:55 Last Admin: 02/12/17 18:12 Dose: Not Given Furosemide (Lasix) 20 mg IVPUSH NOW ONE Stop: 02/16/17 13:18 Last Admin: 02/16/17 13:35 Dose: 20 mg Hydromorphone HCl (Dilaudid) 0.5 mg IVPUSH ONETIME ONE Stop: 02/12/17 17:30 Last Admin: 02/12/17 17:40 Dose: 0.5 mg Ceftriaxone Sodium 2 gm/ (Sodium Chloride) 100 mls @ 200 mls/hr IV ONETIME ONE Stop: 02/12/17 16:30 Last Admin: 02/12/17 16:20 Dose: 200 mls/hr Vancomycin HCl 1.5 gm/ Sodium (Chloride) 250 mls @ 250 mls/hr IV ONETIME ONE Stop: 02/12/17 17:03 Last Admin: 02/12/17 18:09 Dose: Not Given Doxycycline Hyclate 100 mg/ (Sodium Chloride) 100 mls @ 100 mls/hr IV ONETIME ONE Stop: 02/12/17 18:22 Last Admin: 02/12/17 18:12 Dose: Not Given Doxycycline Hyclate 100 mg/ (Sodium Chloride) 100 mls @ 100 mls/hr IV ONETIME ONE Stop: 02/12/17 18:55 Last Admin: 02/12/17 18:10 Dose: 100 mls/hr Potassium Chloride/Sodium Chloride (Normal Saline With 20 Meq Kcl) 1,000 mls @ 125 mls/hr IV ASDIRECTED [facility] Last Admin: 02/12/17 19:22 Dose: 125 mls/hr Piperacillin Sod/Tazobactam (Sod 4.5 gm/ Sodium Chloride) 100 mls @ 25 mls/hr IV Q8H [facility] Last Admin: 02/16/17 06:38 Dose: 25 mls/hr Piperacillin Sod/Tazobactam (Sod 4.5 gm/ Sodium Chloride) 100 mls @ 200 mls/hr IV ONETIME ONE Stop: 02/13/17 06:29 Last Admin: 02/13/17 05:25 Dose: 200 mls/hr Vancomycin HCl 1 gm/Vancomycin HCl 250 mg/ Sodium Chloride 250 mls @ 166.667 mls/hr IV Q24H [facility] Last Admin: 02/12/17 22:33 Dose: 166.667 mls/hr Sodium Chloride (Normal Saline) 1,000 mls @ 100 mls/hr IV ASDIRECTED [facility] Stop: 02/14/17 06:59 Last Admin: 02/13/17 20:23 Dose: 100 mls/hr Vancomycin HCl 1.75 gm/ Sodium (Chloride) 500 mls @ 333.333 mls/hr IV Q24H [facility] Last Admin: 02/15/17 21:40 Dose: 333.333 mls/hr Sodium Chloride (Normal Saline) 1,000 mls @ 100 mls/hr IV ASDIRECTED [facility] Last Admin: 02/14/17 14:06 Dose: 100 mls/hr Sodium Chloride (Normal Saline) 1,000 mls @ 999 mls/hr IV ASDIRECTED [facility] Last Admin: 02/14/17 10:05 Dose: 999 mls/hr Sodium Chloride (Normal Saline) 2,000 mls @ 500 mls/hr IV ASDIRECTED [facility] Stop: 02/14/17 20:29 Last Admin: 02/14/17 17:35 Dose: Not Given Sodium Chloride (Normal Saline) 1,000 mls @ 150 mls/hr IV ASDIRECTED [facility] Sodium Chloride (Normal Saline) 1,000 mls @ 250 mls/hr IV ASDIRECTED KEV Stop: 02/15/17 01:59 Last Admin: 02/14/17 20:45 Dose: 250 mls/hr Sodium Chloride (Normal Saline) 1,000 mls @ 150 mls/hr IV ASDIRECTED [facility] Last Admin: 02/16/17 09:46 Dose: 150 mls/hr Ibuprofen (Motrin) 600 mg PO Q6H PRN PRN Reason: Pain (moderate 4-6) Last Admin: 02/15/17 23:59 Dose: 600 mg Ibuprofen (Motrin) 800 mg PO ONETIME ONE Stop: 02/14/17 22:59 Last Admin: 02/14/17 23:08 Dose: 800 mg Influenza Virus Vaccine (Pharmacy To Dose - Influenza Vaccine) 1 each IM ONETIME ONE Stop: 02/12/17 21:00 Influenza Virus Vaccine (Fluzone High-Dose ) 180 mcg IM .ONCE ONE Stop: 02/13/17 10:01 Ketorolac Tromethamine (Toradol) 30 mg IVPUSH ONETIME ONE Stop: 02/13/17 13:46 Last Admin: 02/13/17 14:23 Dose: 30 mg Lidocaine HCl (Xylocaine 1%) 10 ml INJECT ONETIME ONE Stop: 02/12/17 16:12 Last Admin: 02/12/17 18:12 Dose: Not Given Lorazepam (Ativan) 0.5 mg PO ONETIME ONE Stop: 02/15/17 14:01 Last Admin: 02/15/17 14:03 Dose: 0.5 mg Lorazepam (Ativan) 0.5 mg PO ONETIME STA Stop: 02/15/17 13:59 Last Admin: 02/15/17 15:16 Dose: Not Given Potassium Chloride (Klor-Con M20) 40 meq PO ONETIME ONE Stop: 02/12/17 20:20 Last Admin: 02/12/17 22:29 Dose: 40 meq Potassium Chloride (Potassium Chloride) 40 meq PO ONETIME ONE Stop: 02/13/17 20:21 Last Admin: 02/13/17 21:30 Dose: 40 meq Saccharomyces Boulardii (Florastor) 500 mg PO BID [facility] Last Admin: 02/13/17 08:39 Dose: 500 mg Saccharomyces Boulardii (Florastor) 250 mg PO BID [facility] Last Admin: 02/14/17 21:49 Dose: Not Given Vancomycin HCl (Pharmacy To Dose - Vancomycin) 1 dose .XX ASDIRECTED [facility] Vancomycin HCl (Vancomycin) Confirm Administered Dose 2 gm .ROUTE .[facility]-MED ONE Stop: 02/15/17 20:40 Last Admin: 02/15/17 21:40 Dose: Not Given *Q Meaningful Use (DIS) - VTE *Q VTE Criteria *Q: - Stroke *Q Stroke Criteria *Q: - AMI *Q AMI Criteria *Q:
[2017-02-17] MEDS ORDERED: Sodium Chloride 0.9% 1,000 ML IV SCH (16:45)
--- NOTE | 2017-02-18 07:25 | CR ---
Chest: Two views of the chest were obtained. Comparison: Prior chest x-ray of 02/14/17. Heart size is slightly enlarged if study is a PA view. Tortuous thoracic aorta is seen. Pulmonary vessels are slightly increased and difficult to exclude mild pulmonary vascular congestion. Minimal atelectasis is seen around the right minor fissure. Impression: 1. Questionable findings of mild CHF. Please correlate. 2. Nothing acute is otherwise seen. Diagnostic code #3 Mostly agree with preliminary report issued by [facility], additional questionable finding as noted above ([facility] preliminary report dictated on 02/17/17, 9:57 AM Central Time)
--- NOTE | 2017-03-04 13:04 | PCM.CONS ---
H&P History of Present Illness - General Date of Service: 02/13/17 Admit Problem/Dx: Te is seen this morning up and ambulatory with nursing to BR. He looks significantly better; he is laughing and joking with staff, very appropriate in conversation. He continues to cough but it is less frequent. Denies SOB or CP this morning. States leg pain is improved. He has had loose stools this morning. He was febrile overnight at 103.0 at around 2300, no fevers since that time. Otherwise VSS. Source of Information: Patient, Provider - History of Present Illness Initial Comments - Free Text/Narative: This is a 66 year old male that we are consulted on for right knee pain and swelling. Patient states that he fell and hit his knee on thanksgiving and had an abrasion and he has had increasing right knee pain and swelling. Patient was evaluated at the [facility] where he was told he had a possible infection of the right knee. He subsequently went to the ED yesterday where he was found to have fever and chills per the patient with significant pain with motion to the right knee and erythema. He was subsequently admitted to medicine for probable right knee cellulitis but were consulted to rule out any other infection. He denies previous pain or injury before this fall and states it has progressively gotten worse. He is currently on antibiotics on the floor with rocephin. Right Knee Pain Score (Numeric/FACES): 3 Headache Pain Score (Numeric/FACES): 5 - Related Data Allergies/Adverse Reactions: Allergies Allergy/AdvReac Type Severity Reaction Status Date / Time No Known Allergies Allergy Verified 02/12/17 15:33 Home Medications: Home Meds Ascorbic Acid 500 mg PO DAILY 02/12/17 [History] Multivitamin with Minerals [One Daily Plus Minerals] 1 tab PO DAILY 02/12/17 [ History] Phenytoin Sodium Extended [Dilantin] 200 mg PO BID 02/12/17 [History] atorvaSTATin [Lipitor] 10 mg PO BEDTIME 02/12/17 [History] Acetaminophen [Tylenol] 650 mg PO Q4H PRN tablet 02/15/17 [Rx] Acetaminophen [Tylenol] 650 mg PO TID tablet 02/15/17 [Rx] Albuterol [IJD: Albuterol] 2.5 mg NEB QIDRT #0 nebule 02/15/17 [Rx] Albuterol/Ipratropium [DuoNeb 3.0-0.5 MG/3 ML] 3 ml NEB Q4HRRT PRN neb [Rx] Benzonatate [Tessalon Perles] 200 mg PO TID cap 02/15/17 [Rx] Bisacodyl [Dulcolax] 5 mg PO DAILY PRN tablet 02/15/17 [Rx] Codeine/guaiFENesin [Robitussin AC] 5 ml PO Q4H PRN cup 02/15/17 [Rx] Docusate Sodium [Colace] 100 mg PO BID PRN cap 02/15/17 [Rx] Enoxaparin [Lovenox] 40 mg SUBCUT DAILY syringe 02/15/17 [Rx] Famotidine [Pepcid] 20 mg PO BID tablet 02/15/17 [Rx] Ferrous Sulfate 325 mg PO WITHBREAKFAST tablet 02/15/17 [Rx] Ibuprofen [IJD: Ibuprofen] 600 mg PO Q6H PRN tablet 02/15/17 [Rx] Ondansetron [Zofran ODT] 4 mg PO Q6H PRN tab.dis 02/15/17 [Rx] Piperacillin/Tazobactam [Zosyn] 4.5 gm IV Q8H vial 02/15/17 [Rx] Vancomycin 1.75 gm IV Q24H sdv 02/15/17 [Rx] Vancomycin Pharmacy to Dose [Pharmacy to Dose - Vancomycin] 1 dose .XX ASDIRECTED each 02/15/17 [Rx] guaiFENesin [Mucinex] 1,200 mg PO BID tab.er 02/15/17 [Rx] Past Medical History Cardiovascular History: Reports: High Cholesterol Neurological History: Reports: Seizure Other Neuro History: poor short term memory Psychiatric History: Reports: Depression - Past Surgical History GI Surgical History: Reports: Colonoscopy Social & Family History - Family History Family Medical History: Noncontributory - Tobacco Use Smoking Status *Q: Former Smoker Used Tobacco, but Quit: Yes Month Tobacco Last Used: 2011 Second Hand Smoke Exposure: No - Caffeine Use Caffeine Use: Reports: Energy Drinks - Recreational Drug Use Recreational Drug Use: No H&P Review of Systems - Review of Systems: Review Of Systems: ROS reveals no pertinent complaints other than HPI. Exam - Exam Exam: See Below - Vital Signs Vital Signs: Last Vital Signs Temp 37.4 C 02/17/17 15:19 Pulse 86 02/17/17 15:19 Resp 19 02/17/17 15:19 BP 120/65 02/17/17 15:19 Pulse Ox 93 L 02/17/17 15:20 Weight: 102.875 kg - Exam Physical Exam Comments:: RLE: no pain with log roll of the right hip, knee in semi-flexed position pain with motion only after 60 degrees of flexion, significant anterior erythema over prepatellar bursa region, palpable fluid in prepatellar bursa with pain, abrasion noted over anterior aspect of knee, no joint effusion, no pain to medial or lateral joint line, otherwise neurovascularly intact distally to the medial, lateral, plantar, first dorsal web space, 2+ distal pulses - Patient Data Result Diagrams: 02/16/17 05:23 02/16/17 05:23 Consult PN Assessment/Plan Problem List Initiated/Reviewed/Updated: Yes Plan: A: septic right knee prepatellar bursitis P: At this time I did discuss with the patient that he does have a significant fluid collection in the prepatellar bursal region which is more than likely purulent material. At this time I would recommend a bedside incision and continue IV antibiotics. At this time i did discuss that if it recurs we would plan on taking he to the operating room for formal irrigation and deridement but that carries a risk of sloughing of the skin. The risks, benefits, complications, and alternatives were discussed with the patient and he is in agreement. We will plan on taking cultures during the drainage as well.
--- NOTE | 2017-03-05 14:26 | OR ---
DATE OF OPERATION: 02/13/2017 SURGEON: Jadiel Farias MD OPERATION PERFORMED: Incision and drainage of right prepatellar septic bursitis. PREOPERATIVE DIAGNOSIS: Right prepatellar septic bursitis. POSTOPERATIVE DIAGNOSIS: Right prepatellar septic bursitis. ANESTHESIA: None. COMPLICATIONS: None. ESTIMATED BLOOD LOSS: 10 mL. CULTURES: Aerobic and anaerobic sent, right knee prepatellar bursal region. WOOD MACHINIST APPRENTICE: None. DESCRIPTION OF PROCEDURE: The patient was identified in his room. Consent was signed. A time-out was performed. At this time, a small stab incision with an 11 blade was made over the lateral aspect near the prepatellar bursal region. At this time, a blunt Cinthya was used. Note that the patient's knee was sterilely prepped and draped in the usual sterile fashion at the bedside with sterile towels. At this time, once this was done, blunt dissection was taken into the prepatellar bursa, and a large amount of purulent material was extruded from the stab incision on the patient's lateral aspect of the knee. At this time, greater than 50 mL of purulent material was drained from the knee. Cultures were taken at this time, both aerobic and anaerobic, multiple times of the infected area. Once this was sufficiently drained, a tight compressive sterile dressing was applied and was allowed to stay open to continue draining. The patient is to continue on IV antibiotics, and we will round on the patient to make sure he is progressing. MMODAL /[id number]
== END 2017-02-17 19:37 | DRG 602 ==
LOC: JD.ED 15:20 → JD.MS 19:17 → OBSVTOIN 02-13 09:59 → JD.MS 02-13 09:59
PROVIDERS: ADMIT Internal Medicine Cardiovascular Disease; ATTEND Internal Medicine Cardiovascular Disease
DX: L03.115 Cellulitis of right lower limb (principal); J18.9 Pneumonia, unspecified organism; A41.01 Sepsis due to Methicillin susceptible Staphylococcus aureus; E87.6 Hypokalemia; E78.5 Hyperlipidemia, unspecified; G40.909 Epilepsy, unspecified, not intractable, without status epilepticus; F32.9 Major depressive disorder, single episode, unspecified; R41.3 Other amnesia; Z87.891 Personal history of nicotine dependence; Z79.899 Other long term (current) drug therapy; D64.9 Anemia, unspecified; N28.9 Disorder of kidney and ureter, unspecified; D50.9 Iron deficiency anemia, unspecified; Z53.8 Procedure and treatment not carried out for other reasons
CPT/HCPCS: 36415; 71020; 71020-26; 73564-26-RT; 73564-RT; 80048; 80053; 80202; 82272; 82607; 82746; 83540; 83605; 83735; 83880; 84466; 85025; 86140; 86738; 87040; 87075; 87076; 87077; 87181; 87186; 87205; 87486; 87581; 87633; 87798; 87899; 92610-GN; 93005; 94640; 94760; 94761; 96125-GN; 96361; 96365; 96367; 96375; 97110-GO; 97116-GP; 97162-GP; 97167-GO; 97530-GO; 97530-GP; 97535-GO; 99284; 99285-25; A9270-GY; G0378; J0696; J1170; J1650; J1885; J2543; J3370; J3480; J7030; J7040; J7050

== ENCOUNTER 2018-06-27 16:21 | Emergency (ER) | payer OTHER, MEDICARE ==
[2018-06-27] MEDS ORDERED: HYDROmorphone 1 MG/ML Syringe IM ONE (17:03)
--- NOTE | 2018-06-27 17:18 | EDM.PDOC ---
ED HPI GENERAL MEDICAL PROBLEM - General Chief Complaint: Upper Extremity Injury/Pain Stated Complaint: LT WRIST INJURY [facility] Time Seen by Provider: 06/27/18 16:42 Source of Information: Reports: Patient, RN Notes Reviewed History Limitations: Reports: No Limitations - History of Present Illness INITIAL COMMENTS - FREE TEXT/NARRATIVE: Patient is a 67-year-old male who presents to the ED today for the evaluation of a left wrist injury. He states roughly 2 hours ago he was taking the garbage out and thinks he may have tripped over something as he was bringing the garbage cans back and he fell onto his left wrist. He was unsure of the actual mechanism of injury, he thinks he may have bent his wrist backwards a little bit too far. He has no other previous injuries noted to this wrist. He did not take any pain medications for this. He has iced it. He notes that he is right-hand dominant. He is a gentleman that goes to the [facility], he did try to go to the [facility] however they directed him to ER for management. Left Wrist Pain Score (Numeric/FACES): 2 - Related Data Allergies Allergy/AdvReac Type Severity Reaction Status Date / Time No Known Allergies Allergy Verified 06/27/18 16:41 Home Meds: Home Meds Ascorbic Acid 500 mg PO DAILY 02/12/17 [History] Multivitamin with Minerals [One Daily Plus Minerals] 1 tab PO DAILY 02/12/17 [ History] Phenytoin Sodium Extended [Dilantin] 200 mg PO BID 02/12/17 [History] atorvaSTATin [Lipitor] 10 mg PO BEDTIME 02/12/17 [History] Acetaminophen [Tylenol] 650 mg PO Q4H PRN tablet 02/15/17 [Rx] Acetaminophen [Tylenol] 650 mg PO TID tablet 02/15/17 [Rx] Albuterol [IJD: Albuterol] 2.5 mg NEB QIDRT #0 nebule 02/15/17 [Rx] Albuterol/Ipratropium [DuoNeb 3.0-0.5 MG/3 ML] 3 ml NEB Q4HRRT PRN neb [Rx] Benzonatate [Tessalon Perles] 200 mg PO TID cap 02/15/17 [Rx] Bisacodyl [Dulcolax] 5 mg PO DAILY PRN tablet 02/15/17 [Rx] Codeine/guaiFENesin [Robitussin AC] 5 ml PO Q4H PRN cup 02/15/17 [Rx] Docusate Sodium [Colace] 100 mg PO BID PRN cap 02/15/17 [Rx] Enoxaparin [Lovenox] 40 mg SUBCUT DAILY syringe 02/15/17 [Rx] Famotidine [Pepcid] 20 mg PO BID tablet 02/15/17 [Rx] Ferrous Sulfate 325 mg PO WITHBREAKFAST tablet 02/15/17 [Rx] Ibuprofen [IJD: Ibuprofen] 600 mg PO Q6H PRN tablet 02/15/17 [Rx] Ondansetron [Zofran ODT] 4 mg PO Q6H PRN tab.dis 02/15/17 [Rx] Pharmacy to Dose - Vancomycin 1 dose .XX ASDIRECTED each 02/15/17 [Rx] Piperacillin/Tazobactam [Zosyn] 4.5 gm IV Q8H vial 02/15/17 [Rx] Vancomycin 1.75 gm IV Q24H sdv 02/15/17 [Rx] guaiFENesin [Mucinex] 1,200 mg PO BID tab.er 02/15/17 [Rx] Acetaminophen/HYDROcodone [[place] 325-5 MG] 1 tab PO Q6H PRN #28 tablet 06/27/18 [Rx] Past Medical History Cardiovascular History: Reports: High Cholesterol Neurological History: Reports: Seizure Other Neuro History: poor short term memory Psychiatric History: Reports: Depression - Past Surgical History GI Surgical History: Reports: Colonoscopy Social & Family History - Family History Family Medical History: Noncontributory - Tobacco Use Smoking Status *Q: Former Smoker Used Tobacco, but Quit: Yes Month/Year Tobacco Last Used: 10 years ago - Caffeine Use Caffeine Use: Reports: Coffee - Recreational Drug Use Recreational Drug Use: No Review of Systems - Review of Systems Review Of Systems: See Below Constitutional: Reports: No Symptoms Eyes: Reports: No Symptoms Ears: Reports: No Symptoms Nose: Reports: No Symptoms Mouth/Throat: Reports: No Symptoms Respiratory: Reports: No Symptoms Cardiovascular: Reports: No Symptoms GI/Abdominal: Reports: No Symptoms Genitourinary: Reports: No Symptoms Musculoskeletal: Reports: Joint Pain (left wrist). Denies: Hand Pain Skin: Reports: No Symptoms Neurological: Reports: No Symptoms Psychiatric: Reports: No Symptoms ED EXAM, GENERAL - Physical Exam Exam: See Below Exam Limited By: No Limitations General Appearance: Alert, WD/WN, No Apparent Distress Eye Exam: Bilateral Eye: Normal Inspection Respiratory/Chest: No Respiratory Distress, Lungs Clear, Normal Breath Sounds, No Accessory Muscle Use, Chest Non-Tender Cardiovascular: Normal Peripheral Pulses, Regular Rate, Rhythm, No Murmur Peripheral Pulses: 3+: Radial (L), Radial (R) Extremities: Normal Capillary Refill, Limited Range of Motion (of left wrist d/ t pain), Other (Patient does have a visible deformity noted to his left wrist with dorsal angulation noted). No: Pallor Neurological: Alert, Oriented, Normal Cognition, Normal Gait, No Motor/Sensory Deficits Psychiatric: Normal Affect, Normal Mood Skin Exam: Warm, Dry, Intact, Normal Color, No Rash ED TRAUMA EXTREMITY PROCEDURES - Splinting Left Upper Extremity Splint Site: left forearm/wrist Pre-Procedure NV Status: Normal Post-Procedure NV Status: Normal Splint Material: Fiberglass Splint Design: Gutter (ulnar gutter, long arm) Applied & Form Fitted By: Provider, Nurse Provider Post-Splint Application NV Check: NV Status Normal, Good Position Complications: No Course - Vital Signs Last Recorded V/S: Last Vital Signs Temp 98.3 F 06/27/18 16:39 Pulse 56 L 06/27/18 16:39 Resp 16 06/27/18 16:39 BP 154/78 H 06/27/18 16:39 Pulse Ox 98 06/27/18 16:39 - Orders/Labs/Meds Orders: Active Orders 24 hr Category Date Time Status Wrist Comp Min 3V Lt [CR] Stat Exams 06/27/18 16:48 Taken Meds: Medications Discontinued Medications Generic Name Dose Route Start Last Admin Trade Name Freq PRN Reason Stop Dose Admin Hydromorphone HCl 1 mg 06/27/18 17:03 06/27/18 17:13 Dilaudid IM 06/27/18 17:04 1 mg ONETIME ONE Administration - Re-Assessments/Exams Free Text/Narrative Re-Assessment/Exam: 06/27/18 17:19 Patient presents to the ED for evaluation of a left wrist injury. A wrist x- ray was obtained, and does demonstrate a comminuted minimally displaced distal radial fracture of the left arm. Ordered 1 mg IM Dilaudid for initial pain relief. The patient will be splinted with an ulnar gutter long arm splint provided with a sling and sent home with a prescription for pain medications with an ortho referral. Departure - Departure Time of Disposition: 18:23 Disposition: Home, Self-Care 01 Condition: Fair Clinical Impression: Radius fracture Qualifiers: Encounter type: initial encounter Radius location: distal Fracture type: closed Fracture morphology: other fracture Laterality: left Qualified Code(s): S52.592A - Other fractures of lower end of left radius, initial encounter for closed fracture - Discharge Information *PRESCRIPTION DRUG MONITORING PROGRAM REVIEWED*: No *COPY OF PRESCRIPTION DRUG MONITORING REPORT IN PATIENT ARMA: No Prescriptions: Acetaminophen/HYDROcodone [[place] 325-5 MG] 1 tab PO Q6H PRN #28 tablet PRN Reason: Pain Instructions: Cast or Splint Care, Adult, [id number], Radial Head Fracture, [id number] Referrals: Lady Crandall MD [Primary Care Provider] - Forms: ED Department Discharge Additional Instructions: You have been evaluated in the ED for your left wrist injury. Your x-ray demonstrated a distal radius fracture of your left arm. Please use ice as tolerated to the affected area. You may take Tylenol 500 mg or ibuprofen 600mg q6 hrs for pain relief. Please do so until you have a tolerable level of pain with activity. Do not exceed 4000mg tylenol, Do not exceed 3200mg ibuprofen in a 24 hour time period. Please take the [place] 5/325 tablets every 6 hours as needed for pain that is not relieved by Tylenol or ibuprofen alone. This has been electronically sent to the [facility] pharmacy located near [facility]. Please call Ortho for follow-up and further evaluation Dr. Farias is our orthopedic surgeon, his office number is [phone]. Please call and set up an appointment as soon as possible for further management. Please return to ED if your symptoms should change or worsen. - My Orders Last 24 Hours: My Active Orders 06/27/18 16:48 Wrist Comp Min 3V Lt [CR] Stat - Assessment/Plan Last 24 Hours: My Active Orders 06/27/18 16:48 Wrist Comp Min 3V Lt [CR] Stat
--- NOTE | 2018-06-29 08:27 | CR ---
Left wrist: Four views of the left wrist were obtained. Comparison: No prior wrist exam. Distal radial fracture is seen with posterior impaction causing dorsal tilt of the distal radial articular margin. Minimal avulsion fractures are seen off the ulnar styloid process. Mild degenerative change is noted within the CMC joint of the thumb. Small linear radiopacity is seen projected over the proximal shaft of the third metacarpal. Soft tissue swelling is noted within the wrist. Impression: 1. Distal radial fracture with posterior impaction. 2. Minimal avulsion fractures off the ulnar styloid process. 3. Other incidental findings. Diagnostic code #3
== END 2018-06-27 18:30 | disposition home or self-care (01) ==
LOC: JD.ED 16:21
DX: S52.592A Other fractures of lower end of left radius, initial encounter for closed fracture (principal); E78.00 Pure hypercholesterolemia, unspecified; F32.9 Major depressive disorder, single episode, unspecified; Z87.891 Personal history of nicotine dependence; Z79.899 Other long term (current) drug therapy; W01.0XXA Fall on same level from slipping, tripping and stumbling without subsequent striking against object, initial encounter
CPT/HCPCS: 29105; 73110; 96372; 99283; J1170